=== PATIENT | female | born 1970 | race Caucasian/White ===

== ENCOUNTER 2024-07-28 16:23 | Outpatient (REF) | payer MEDICAID, SELFPAY ==
[2024-07-28 17:27] LABS: MANUAL DIFF FLAG NO
[2024-07-28 17:29] LABS: Basophils Absolute Auto 0.1 X10*3/uL (0.0-0.2); Basophils Percent Auto 0.5 % (0-2); Eosinophils Absolute Auto 0.1 X10*3/uL (0.0-0.4); Eosinophils Percent Auto 1.1 % (0-4); Hematocrit 49.8 % (37.0-47.0); Hemoglobin 16.3 g/dl (12.0-16.0); Imm Gran Abs Auto 0.03 X10*3/uL (0.00-0.03); Imm Gran Pct Auto 0.3 % (0.0-0.4); Lymphocytes Absolute Auto 2.9 X10*3/uL (1.2-4.9); Lymphocytes Percent Auto 27.8 % (20-40); Mean Corpuscular HGB Conc 32.7 g/dl (31.0-35.0); Mean Corpuscular Hemoglobin 28.5 pg (27.0-33.0); Mean Corpuscular Volume 87.2 fL (80.0-98.0); Mean Platelet Volume 11.2 fL (9.4-12.3); Monocytes Absolute Auto 0.8 X10*3/uL (0.1-1.2); Monocytes Percent Auto 7.5 % (2-11); Neutrophils Absolute Auto 6.6 x10*3/uL (2.0-8.3); Neutrophils Percent Auto 62.8 % (45-73); Platelet Count 426 X10*3/uL (160-400); Red Blood Count 5.71 X10*6/uL (4.20-5.50); White Blood Count 10.4 X10*3/uL (4.8-10.8)
[2024-07-28 17:42] LABS: Estimated Average Glucose 108 mg/dL; Hemoglobin A1C 144.2101 umol/L; Hemoglobin A1c % 5.4 % (<6.0); Total Hemoglobin (HGBA1C) 4120.6241 umol/L
[2024-07-28 18:09] LABS: Alanine Aminotransferase 32 U/L (0-31); Albumin Level 4.6 g/dL (3.5-5.0); Alkaline Phosphatase 83 U/L (39-117); Anion Gap 12 (12-20); Aspartate Amino Transferase 24 U/L (5-31); Bilirubin Total 0.3 mg/dL (0.0-1.0); Blood Urea Nitrogen 11 mg/dL (9-16); Calcium 10.2 mg/dL (8.4-10.2); Carbon Dioxide 25 mmol/L (22-29); Chloride 106 mmol/L (96-108); Cholesterol 188 mg/dL (<200); Estimated Glomerular Filt Rate > 60; Glucose Random 85 mg/dL (60-115); HDL Cholesterol 56 mg/dL (>40); LDL Cholesterol Calculated 112 mg/dL (<100); Sodium 139 mmol/L (135-145); Total Protein 8.2 g/dL (6.5-8.0); Triglycerides 100 mg/dL (<150)
[2024-07-28 18:22] LABS: TSH reflex Free T4 2.34 uIU/mL (0.32-4.0)
[2024-07-28 18:36] LABS: Folate 12.6 ng/mL (> or = 4.0); Vitamin B12 324 pg/mL (200-900)
[2024-07-29 12:04] LABS: Follicle Stimulating Hormone 11.7 mIU/mL; Lutenizing Hormone 6.8 mIU/mL
[2024-07-30 04:07] LABS: HIV AB/AG Nonreactive (Nonreactive); HIV Num 1 0.06 S/CO (0.00-0.99); ~HepC Num1 13.87 S/CO (0.00-0.79); ~Hepatitis C Antibody Reactive (Nonreactive)
[2024-08-01 12:13] LABS: HCV Log PCR <1.18 NOT DETECTED Log IU/mL (NOT DETECTED); HepC Viral Load <15 NOT DETECTED IU/mL (NOT DETECTED)
== END 2024-07-28 16:24 | disposition home or self-care (01) ==
LOC: HO.HHCL 16:23
PROVIDERS: Visit Provider Nurse Practitioner Family
DX: Z00.00 Encounter for general adult medical examination without abnormal findings (principal); Z68.39 Body mass index [BMI] 39.0-39.9, adult; N95.1 Menopausal and female climacteric states; E66.812 Obesity, class 2
CPT/HCPCS: 36415; 80053; 80061; 82607; 82746; 83001; 83002; 83036; 84443; 85025; 86803; 87389; 87522

== ENCOUNTER 2024-08-03 11:41 | Outpatient (REF) | payer MEDICAID, SELFPAY | END 2024-08-03 11:42 | disposition home or self-care (01) | LOC: HO.XRAY 11:41 | PROVIDERS: PCP Nurse Practitioner Family; Visit Provider Nurse Practitioner Family | DX: M79.641 Pain in right hand (principal); M79.642 Pain in left hand | CPT/HCPCS: 73130 ==

== ENCOUNTER 2024-09-13 11:30 | Outpatient (REF) | payer MEDICAID, SELFPAY ==
--- NOTE | ~2024-09-13 | MM_ITS ---
EXAMINATION: MM SCREENING DIGITAL BREAST TOMOSYNTHESIS, BILATERAL CLINICAL INFORMATION: Screening. Asymptomatic. COMPARISON: Mammography: Comparison is made with available priors TECHNIQUE: Digital breast mammography with tomosynthesis is performed in both the craniocaudal and mediolateral oblique views along with computer-aided detection (CAD). FINDINGS: There are scattered areas of fibroglandular density (ACR BI-RADS breast composition Category b). There are no significant masses, abnormal calcifications, or other abnormalities. MM/MM tomosynthesis screening BI IMPRESSION: No mammographic evidence of malignancy. ASSESSMENT: BI-RADS BI-RADS 1 - Negative RECOMMENDATION: Routine annual mammography screening. 1 year F/U This examination should not preclude the clinical evaluation of a suspicious palpable abnormality. This patient's information was entered into a reminder system with a target due date for their next mammogram. Electronically signed by: Deb Fitzgerald DO 09/19/2024 03:07 PM NINA
== END 2024-09-13 11:31 | disposition home or self-care (01) ==
LOC: HO.MAMMO 11:30
PROVIDERS: PCP Nurse Practitioner Family; Visit Provider Nurse Practitioner Family
DX: Z12.31 Encounter for screening mammogram for malignant neoplasm of breast (principal)
CPT/HCPCS: 77063; 77067

== ENCOUNTER → 2024-09-13 11:30 | Outpatient (BNV) | payer MEDICAID, SELFPAY | PROVIDERS: PCP Nurse Practitioner Family; Visit Provider Internal Medicine | DX: Z12.31 Encounter for screening mammogram for malignant neoplasm of breast (principal) | CPT/HCPCS: 77063; 77067 ==

== ENCOUNTER 2024-10-02 12:39 | Outpatient (REF) | payer MEDICAID, SELFPAY ==
[2024-10-02 13:45] LABS: MANUAL DIFF FLAG NO
[2024-10-02 14:06] LABS: Basophils Percent Auto 0.4 % (0-2); Eosinophils Absolute Auto 0.1 X10*3/uL (0.0-0.4); Eosinophils Percent Auto 0.9 % (0-4); Hematocrit 48.7 % (37.0-47.0); Hemoglobin 16.2 g/dl (12.0-16.0); Imm Gran Abs Auto 0.03 X10*3/uL (0.00-0.03); Imm Gran Pct Auto 0.3 % (0.0-0.4); Lymphocytes Absolute Auto 2.9 X10*3/uL (1.2-4.9); Lymphocytes Percent Auto 27.8 % (20-40); Mean Corpuscular HGB Conc 33.3 g/dl (31.0-35.0); Mean Corpuscular Hemoglobin 28.7 pg (27.0-33.0); Mean Corpuscular Volume 86.3 fL (80.0-98.0); Mean Platelet Volume 11.3 fL (9.4-12.3); Monocytes Absolute Auto 0.7 X10*3/uL (0.1-1.2); Monocytes Percent Auto 6.9 % (2-11); Neutrophils Absolute Auto 6.6 x10*3/uL (2.0-8.3); Neutrophils Percent Auto 63.7 % (45-73); Platelet Count 435 X10*3/uL (160-400); Red Blood Count 5.64 X10*6/uL (4.20-5.50); Red Cell Distribution Width 14.6 % (11.0-16.0); White Blood Count 10.4 X10*3/uL (4.8-10.8)
[2024-10-02 14:31] LABS: Iron 108 mcg/dL (30-160); Percent Iron Saturation 34 % (15-50); Total Iron Binding Capacity 318 mcg/dL (228-428); Unsaturated Iron Binding 210 ug/dL
[2024-10-03 10:34] LABS: HPV 16,18/45 See PAP report
[2024-10-05 16:37] LABS: C. trachomatis RNA TMA NOT DETECTED (NOT DETECTED); N. gonorrhoeae RNA TMA NOT DETECTED (NOT DETECTED); Trichomonas (NAAT) NOT DETECTED (NOT DETECTED)
== END 2024-10-02 12:40 | disposition home or self-care (01) ==
LOC: HO.HHCL 12:39
PROVIDERS: Visit Provider Nurse Practitioner Family
DX: Z12.4 Encounter for screening for malignant neoplasm of cervix (principal); D75.1 Secondary polycythemia
CPT/HCPCS: 36415; 83540; 85025; 87491; 87591; 87624; 87661; 88175

== ENCOUNTER 2024-10-10 15:47 | Outpatient (REF) | payer MEDICAID, SELFPAY | END 2024-10-10 15:48 | disposition home or self-care (01) | LOC: HO.US 15:47 | PROVIDERS: PCP Nurse Practitioner Family; Visit Provider Family Medicine | DX: Z30.432 Encounter for removal of intrauterine contraceptive device (principal) | CPT/HCPCS: 76830; 76856 ==

== ENCOUNTER → 2024-10-10 15:49 | Outpatient (BNV) | payer MEDICAID, SELFPAY | PROVIDERS: PCP Nurse Practitioner Family; Visit Provider Radiology Diagnostic Radiology | DX: T83.32XA Displacement of intrauterine contraceptive device, initial encounter (principal) | CPT/HCPCS: 76830; 76856 ==

== ENCOUNTER 2025-02-15 15:01 | Outpatient (AMB) | payer MEDICAID, SELFPAY ==
--- NOTE | 2025-02-15 15:12 | MHC.OFFVIS ---
Vital Signs 02/15/25 15:23 Height 5 ft 4 in Intake Visit Reasons: IUD removal Criminal Research Specialist Required: No Information Interpreted: non-clinical & clinical Photoengraving Etcher Apprentice: Photoengraving Etcher Apprentice Present (Humaira HURT) Accompanied by: Self / Same As Patient Allergies No Known Allergies Allergy (Unverified 02/15/25 15:24) Is last menstrual period known: No (mirena) HPI Comments Details: Presenting referred from PCP regarding IUD removal Pelvic ultrasound 10/03 showed the following: IMPRESSION: Intrauterine contraceptive device is malpositioned in oblique position within endometrial cavity Likely small posterior fibroid in the body of uterus. Nabothian cyst with calcifications in cervix. Ovaries are unremarkable. Last co testing in 10/03 was negative Last mammogram in 10/03 to was BI-RADS 1 PFS Medical History (Updated 02/15/25 @ 15:41 by Rupert Beatty MD) ASCUS of cervix with negative high risk HPV Surgical History Hx of gastric bypass Family History (Updated 02/15/25 @ 15:27 by Humaira Cazares CMA) Mother Diabetes HTN (hypertension) Father Heart disease Social History Household Members: Spouse Housing: Apartment Alcohol intake: current Alcohol intake frequency: holidays/special occasions only Patient Tobacco Use Status: Current everyday Tobacco user Tobacco use type: Cigarette Cigarettes Per Day: 4 Years Smoked: 15 Female Reproductive History Menstrual Total pregnancies: 2 Full term: 2 Number of Living Children: 2 Review of Systems Const All systems reviewed & are unremarkable except as noted in HPI and below Physical Exam General: Yes no CVA tenderness External Female Exam: normal external appearance and normal appearance of the urethra Speculum Exam - Vagina: normal appearance of the vagina, normal palpation, no lesions and no masses Speculum Exam - Cervix: normal appearance of the cervix, normal palpation, no lesions, no masses, nontender and Other cervical findings present (IUD string seen) Bimanual exam- vagina & uterus: normal bimanual exam, normal palpation, uterine size normal, normal palpation, uterine shape normal, No Cervical tenderness present and non-tender Bimanual Exam- Adnexa, other: normal adnexae Back/Spine/Pelvis Back: no CVA tenderness Office Procedures IUD Insert/Removal Details Details: Counseling/Consent: After discussing with the patient the risks of the procedure including bleeding, infection, scar tissue formation, , possible injury to blood vessels or nerves, chronic arm pain, blood transfusion, and irregular unpredictable bleeding Alternative options were discussed with the patient including but not limited: Do nothing. The patient signed the consent and agreed with the plan; all questions answered. Urine test was done in the office and was negative Preop dx: Polyp malpositioned IUD by ultra for removal Op: IUD removal Post op dx: same EBL= 10 cc Procedure: The patient was put in the dorsal lithotomy position a speculum was inserted in the vagina the IUD thread identified. Using a Ann-Marie clamp the thread was grasped and the IUD pulled out with no complications. The patient tolerated the procedure well and was advised to use a condoms as a backup method for contraception. Discharge instructions: Instructions were given to the pt to call if temp>100.4, abdominal pain heavy vaginal bleeding, n/v occur. The patient verbalized understanding and all questions answered. This note was generated with a voice recognition program. Some errors may have been overlooked during the review of this note. Sometimes these errors may affect the content or meaning of a given sentence. [id number]-[id number] Removal Procedure code (CPT) selection complete Results AMB Test Urine AMB Test Urine Negative Last Edit by Humaira Cazares CMA on 02/15/25 15:39 Assessment & Plan Assessment & Plan (1) Malpositioned IUD: Code(s): T83.32XA - Displacement of intrauterine contraceptive device, initial encounter Category: Medical Plan: Discussed with the patient the finding on ultrasound showing malpositioned IUD, recommended IUD removal. IUD removed, see procedure note FSH/LH ordered to be done in 1 week. Instructions given to patient to use backup method for control meanwhile and to call in case of vaginal bleeding occurs will proceed with endometrial biopsy to rule out endometrial pathology including endometrial hyperplasia and/or malignancy (2) Uterine myoma: Code(s): D25.9 - Leiomyoma of uterus, unspecified Category: Medical Plan: Discussed with the patient the findings on pelvic ultrasound & the risk of myosarcoma; in addition reviewed with the patient that malignancy and pre malignancy cannot be ruled out without hysterectomy for pathological evaluation ; furthermore, explained to the patient the limitation of pelvic ultrasound and endometrial biopsy in the setting. Discussed with the patient the options of treatment including expectant management versus hysterectomy; the pros and cons, risks benefits of each approach were discussed with the patient including the fact that in cases of myosarcoma, surgical treatment can lead to early diagnosis and positively affects the prognosis; after further discussion, the patient decided to proceed with expectant management. Will repeat pelvic ultrasound periodically. Instructions given to patient to call in case any of the following occurs: pressure symptoms, abnormal uterine bleeding, pelvic pain; and to schedule a six-months pelvic ultrasound from previous ultrasound (order placed) and a follow-up appointment . All questions answered, the patient verbalized understanding and agreed with the plan . Orders: Orders US pelvic and transvaginal 2 Months D25.9 - Leiomyoma of uterus, unspecified Follicle Stimulating Hormone Today N91.2 - Amenorrhea, unspecified AMB HCG Urine Test Today Z32.02 - Encounter for test, result negative Lutenizing Hormone Today N91.2 - Amenorrhea, unspecified Coding Level of Care Code New Pt Level 3 (78274) Procedure Only Diagnoses Malpositioned IUD T83.32XA Uterine myoma D25.9 CPT Codes Details - CPT: 74367-VMI Removal ([id number])
--- OUTSIDE RECORDS SUMMARY | 2025-02-15 15:33 | XMS_ITS | Encounter Summary ---
Author Organization [facility] Address [address] [place] [address] [address] [place] [address] Care Team Providers Care Business Enterprise Officer Name Role Phone Tonia Mary BRENDAN Primary Care Provider [phone] Reason for Visit * Reason Onset Date Comments New Patient 10/19/2023 Encounter Details Date Type Department Care Team (Late st Contact Info) Description 10/19/2023 Telephone [facility] MEDICINE [address] [place] [address] Arun Lemus MD [address] [place] [address] New Patient Social History Tobacco Use Types Packs/Day Years Used Date Smoking Tobacco: Never Assessed Comments Unknown Sex and Gender Information Value Date Recorded Sex Assigned at Female 08/10/2022 10:16 AM EDT Legal Sex Female 10:16 AM EDT Gender Identity Female 07/28/2024 2:48 PM EDT Sexual Orientation Straight 08/10/2022 10 :16 AM EDT documented as of this encounter Miscellaneous Notes * Telephone Encounter - Rosaura Swartz - 10/19/2023 5:17 PM EST PT is on [facility] List as of 10/15/2023 documented in this encounter Plan of Treatment Upcoming Encounters Date Type Department Care Team (Late st Contact Info) Description 03/02/2025 1:00 PM EDT Office Visit [facility] OPTOMETRY [address] [place], [place] [id number] Marta Porter, OD [address] [place] [address] 03/12/2025 4:00 PM EDT Office Visit [facility] MEDICINE [address] [place], [place] [phone] Tonia Mary NP [address] [place] [address] documented as of this encounter Visit Diagnoses Not on filedocumented in this encounter Care Teams Business Enterprise Officer Relationship Specialty Start Date End Date Tonia Mary NP [address] [place] [address] PCP - General Family Medicine 07/28/24 documented as of this encounter
--- OUTSIDE RECORDS SUMMARY | 2025-02-15 15:33 | XMS_ITS | Clinical Summary ---
Author Organization [employer] Address [address] [place] [address] 7[address] [place] [address] Care Team Providers Care Line Builder Name Role Phone Tonia Mary BRENDAN Primary Care Provider [phone] Allergies No known active allergies Medications Diclofenac Sodium (Voltaren) 1 % gelIndications: Hand arthritis Apply 1 Application topically if needed in the morning, at noon, in the evening, and at bedtime (pain). 40 g 1 Active Active Problems Problem Noted Date Diagnosed Date Malpositioned intrauterine device 12/17/2024 Assessment & Plan (12/17/2024 8:30 PM EDT): Referral to HEALTH MANAGEMENT CONSULTANT, pt to update if has not head to schedule Viral upper respiratory tract infection 12/18/19 Assessment & Plan (12/17/2024 8:30 PM EDT): Neg covid flu Supportive measures, pt is improving Health maintenance alteration 12/17/2024 Positive colorectal cancer screening using Colog uard test 11/20/2024 Assessment & Plan (12/17/2024 8:30 PM EDT): Referral to GI Encounter for IUD removal 10/02/2024 Assessment & Plan (10/02/2024 5:44 PM EST): Pt is interested in removal and replacement, pt is amneorrheic but has been throughout duration of iud Last fsh wnl, pt cannot recall date but believes iud is overdue for removal Procedure delayed due to both inability to visualize strings and incomplete hx. Close follow up Polycythemia 10/02/2024 Assessment & Plan (10/02/2024 5:39 PM EST): Mild elevation, repeat labs today, iron studies added on History of hepatitis C virus infection Assessment & Plan (10/02/2024 2:22 PM EST): 2023, undetectable viral load History of abnormal uterine bleeding 10/02/2024 Hand arthritis 10/02/2024 Assessment & Plan (10/02/2024 5:46 PM EST): Topical therapies and prn acetaminophen prescribed Pt declines otho referral at this time Cervical cancer screening 10/01/2024 Assessment & Plan (10/02/2024 5:41 PM EST): Pap + hpv and sti screening completed today, Iud strings not visualized despite utilizing endocervical brush. Hx of AUB, ultrasound ordered to both assess iud placement and follow up on previous aub findings, pt has also signed release for hx records Dietary counseling 08/10/2024 Assessment & Plan (08/10/2024 3:20 PM EDT): Encouraged minimizing processed foods and increasing whole foods particularly vegetables Exercise counseling 08/10/2024 Assessment & Plan (08/10/2024 3:20 PM EDT): Encouraged daily movement Class 2 obesity with body ma ss index (BMI) of 39.0 to 39.9 in adult 08/10/2024 Assessment & Plan (10/02/2024 5:45 PM EST): Plan to consider glp-1 if covered by insurance Assessment & Plan (08/10/2024 3:17 PM EDT): Metabolic labs as ordered below Anticipatory guidance reviewed Encounter for screening for malignant neoplasm o f colon 08/10/2024 Assessment & Plan (08/10/2024 3:20 PM EDT): Cologuard ordered Encounter for screening mamm ogram for malignant neoplasm of breast 08/10/2024 Perimenopause 08/10/2024 Assessment & Plan (08/10/2024 3:20 PM EDT): Labs as ordered below Bilateral hand pain 08/10/2024 Assessment & Plan (08/10/2024 3:19 PM EDT): Suspect oa, X-rays ordered Encounter for immunization 08/10/2024 Healthcare maintenance 08/10/2024 Assessment & Plan (08/10/2024 3:20 PM EDT): Mammogram ordered, pt will return for pap Metabolic labs ordered Anticipatory guidance reviewed Tobacco dependence 08/10/2024 Assessment & Plan (08/10/2024 3:21 PM EDT): Pt declines assistance today Elevated fasting glucose 11/11/2015 Gastroesophageal reflux disease 11/11/2015 Recurrent major depression 11/11/2015 Resolved Problems Problem Noted Date Diagnosed Date Resolved Date Chronic hepatitis C 11/11/2015 10/02/20 24 Encounters Date Type Department Care Team Description 12/22/2024 Orders Only [facility] [address] [place] [phone] Tonia Mary NP Malpositioned intrauterine device (IUD), subsequent encounter (Primary Dx) 12/22/2024 Telephone [facility] [address] [place] [phone] Tonia Mary NP Call Back Request 12/22/2024 Population Health Risk Score [facility] Department [address] [phone] Provider, Population Health Generic 11/20/2024 4:00 PM EST Office Visit [facility]INE [address] [place] [phone] Tonia Mary NP Viral upper respiratory tract infection (Primary Dx); Malpositioned intrauterine device (IUD), subsequent encounter; Positive colorectal cancer screening using Cologuard test; Health maintenance alteration 11/20/2024 Travel 11/19/2024 Travel from Last 3 Months Immunizations Name Administration Dates Next Due Hep A, Adult 08/13/2004,02/05/2004 Hep B, adult 08/14/2004,03/25/2004,02/05/2004 Influenza injectable quadriv alent preservative free 08/01/2019 Influenza, Split (incl. cinthia fied surface antigen) 08/05/2012 Influenza, seasonal, injecta ble, preservative free 07/28/2024 Pneumococcal Polysaccharide PPSV23 08/05/2012 Tdap 07/28/2024,08/05/2012 Family History Medical History Relation Name Comments Diabetes type II Mother Heart disease Mother Relation Name Status Comments Mother Social History Tobacco Use Types Packs/Day Years Used Date Smoking Tobacco: Every Day Cigarettes Passive Smoke Exposure: Current Smokeless Tobacco: Never Tobacco Cessation:Ready to Q uit: Not Asked; Counseling Given: Not Answered Alcohol Answer Date Recorded How often do you have a drink containing alcohol ? 1 07/28/2024 How many drinks containing a lcohol do you have on a typical day when you are drinking? 1 07/28/2024 How often do you have six or more drinks on one occasion? 0 07/28/2024 Depression Answer Date Recorded Patient Health Questionnaire-9 Score 15 07/28/2024 Patient Health Questionnaire-9 Score 15 07/28/2024 Last PHQ-9: Questionnaire Data Not on file 1 Housing Stability Answer Date Recorded What is your housing situation today? I have margie moe 07/19/[address] you li ve. Do you have problems with any of the following? None of the above 07/19/2024 Food Insecurity Answer Date Recorded Within the past 12 months, y ou worried that your food would run out before you got money to buy more: Never True 07/19/2024 Within the past 12 months,th e food you bought just didn't last and you didn't have enough money to get more: Never True 06/2024 Transportation Answer Date Recorded In the past 12 months, has l ack of transportation kept you from medical appts, meetings, work or from getting things needed for daily living? No 07/19/2024 Utilities Answer Date Recorded In the past 12 months, has t he electric, gas, oil or water company threatened to shut off services in your home? No 07/19/2024 Depression Answer Date Recorded Patient Health Questionnaire-2 Score 3 07/28/2024 Internet Access Answer Date Recorded Internet Access Q1 Yes 07/19/2024 Internet Access Q2 Not on file 07/19/2024 Comments Unknown Sex and Gender Information Value Date Recorded Sex Assigned at Female 08/10/2022 10:16 AM EDT Legal Sex Female 10:16 AM EDT Gender Identity Female 07/28/2024 2:48 PM EDT Sexual Orientation Straight 08/10/2022 10 :16 AM EDT Last Filed Vital Signs Vital Sign Reading Time Taken Comments Blood Pressure 143/95 11/20/2024 4:08 PM EST Pulse 94 11/20/2024 4:08 PM EST Temperature 35.2 ??C (95.3 ??F) 11/20/2024 4:08 PM ES T Respiratory Rate 18 11/20/2024 4:08 PM EST Oxygen Saturation 98% 11/20/2024 4:08 PM EST Inhaled Oxygen Concentration - - Weight 109 kg (239 lb 3.2 oz) 11/20/2024 4:08 PM EST Height 162.6 cm (5' 4 ) 11/20/2024 4:08 PM EST Body Mass Index 41.06 11/20/2024 4:08 PM EST Plan of Treatment Upcoming Encounters Date Type Department Care Team (Late st Contact Info) Description 03/02/2025 1:00 PM EDT Office Visit [facility] OPTOMETRY [address] [place] [address] TarkaMarta, OD [address] [place] [address] 03/12/2025 4:00 PM EDT Office Visit [facility] MEDICINE [address] [place] [address] Tonia Mary, LIQUID LOADER [address] [place] [address] Health Maintenance Due Date Last Done Comments CT Colonography 1970 Colonoscopy 1970 FIT 1970 FOBT 1970 Sigmoidoscopy 1970 Family Planning (PISQ) 12/10/1987 Pneumococcal Vaccine: 50+ Years (2 of 2 - PCV) 08/05/2013 08/05/2012 Zoster Vaccines (1 of 2) 2022 COVID-19 Vaccine (3 - 2023-2 5 season) 2024 01/30/2021, 01/02/2021 SDOH Screening 07/19/2025 07/19/2024 Alcohol/Substance Use Screening 07/28/2025 07/28/2024 Depression Screening 07/28/2025 07/28/2024, 07/28/2024 Tobacco Screening 11/20/2025 11/20/2024 Mammogram 09/13/2026 09/13/2024, 08/25/2019 Colorectal Cancer Screening 08/22/2027 FIT DNA/Cologuard 08/22/2027 08/22/2024 Lipid Panel 07/28/2029 07/28/2024 Cervical Cancer Screening 10/02/2029 HPV/Cotest 10/02/2029 10/02/2024, 05/26/2017 Pap Smear 10/02/2029 10/02/2024 DTaP/Tdap/Td Vaccines (3 - T d or Tdap) 07/28/2034 07/28/2024, 08/05/2012 RSV Patients and Patients Aged 60 years or older (1 - 1-dose 75+ series) 12/10/2047 Hepatitis A Vaccines Completed 08/13/2004, 02/05/2004 Hepatitis B Vaccines Completed 08/14/2004, 03/25/2004, 02/05/2004 HIV Screening Completed 07/28/2024 Influenza Vaccine Completed 07/28/2024, 08/01/2019, 08/05/2012 HIB Vaccines Aged Out No longer eligi ble based on patient's age to complete this topic HPV Vaccines Aged Out No longer eligi ble based on patient's age to complete this topic IPV Vaccines Aged Out No longer eligi ble based on patient's age to complete this topic Meningococcal Vaccine Aged Out No oscar ella eligible based on patient's age to complete this topic RSV under 20 months Aged Out No longe r eligible based on patient's age to complete this topic Rotavirus Vaccines Aged Out No longer eligible based on patient's age to complete this topic Procedures Procedure Name Priority Date/Time Associated Diagnosis Comments POCT INFLUENZA A Routine 11/20/2024 4:33 PM EST Viral upper respiratory tract infection POCT INFLUENZA B Routine 11/20/2024 4:32 PM EST Viral upper respiratory tract infection HPV DNA, LOW/HIGH RISK Routine 12:39 PM EST Cervical cancer screening PAP SMEAR Routine 10/02/2024 10:30 AM EST Cervical cancer screening BI MAMMOGRAM SCREENING TOMOSYNTHESIS BILATERAL Routine 09/13/2024 11:33 AM EST Encounter for screening mammogram for malignant neoplasm of breast LAB COLOGUARD?? COLON CANCER SCREEN Routine 08/22/2024 6:00 PM EST Encounter for screening for malignant neoplasm of colon HIV 1/2 ANTIGEN/ANTIBODY, FOURTH GENERATION W/RFL Routine 07/28/2024 4:35 PM EDT Healthcare maintenance LIPID PANEL, STANDARD Routine 07/28/2024 4:35 PM EDT Class 2 obesity with body mass index (BMI) of 39.0 to 39.9 in adult, unspecified obesity type, unspecified whether serious comorbidity present from Last 3 Months or Most Recently Relevant to Health Maintenance Results * POCT Rapid Influenza A OSOM (11/20/2024 4:33 PM EST) Rapid Influenza A Ag Negative Negative, Indeterminate QC Media Lot # [id number] Lot# Expiration Date Swab Nasopharyngeal structure / Unknown 11/20/2024 4:33 PM EST Tonia Mary LIQUID LOADER POINT OF CARE TEST ENTER/EDIT OR DERABLES Final Result * POCT Rapid Influenza B OSOM (11/20/2024 4:32 PM EST) Rapid Influenza B Ag Negative Negative, Indeterminate QC Media Lot # [id number] Lot# Expiration Date Swab 11/20/2024 4:32 PM EST us Tonia Graef LIQUID LOADER POINT OF CARE TEST ENTER/EDIT OR DERABLES Final Result * HPV High Risk with Reflex to Subtypes (10/02/2024 12:39 PM EST) Pap Vial 10/02/2024 12:3 9 PM EST us Tonia Mary NP LAB BLOOD ORDERABLES Final Resul t [facility] [address] [place] [phone] * Pap Smear (10/02/2024 10:30 AM EST) Swab 10/02/2024 10:3 0 AM EST 10/03/2024 10:10 AM EST Narrative [facility] - 10/09/2024 10:30 AM EST ----- ------- Name: BillyMarla ? Age/Sex: 53/F ? : 1970 Unit#: [id number] ?? Attend Dr: Tonia Mary LIQUID LOADER ?Re10/02/24 ?Status: DEP REF ? [facility] ? Disch: ? ----- ------- SPEC : [id number] ?RECD: 10/03/24 ? STATUS: ??SOUT ? REQ NUM: [id number] ? AISHA: 10/02/24 ? SUBM DR: Tonia Mary LIQUID LOADER ? ENTERED: ??10/03/24 ?SP TYPE: Pap Smr ?OTHR : ? ORDERED: ??Pap Smear ? Interpretation ?? Satisfactory for evaluation. ?? Negative for intraepithelial lesion or malignancy. ?? Scant cellularity. ? HPV High Risk: ??Negative ? HPV Genotyping 16: ??Negative ?? HPV Genotyping 18: ??Negative ?Clinical Information LMP: Mirena, and no bleeding for years Previous PAP test: Unknown date, WNL Other surgery: IUD Other history: Uncertain if menopausal ? Material Received ?? ThinPrep-Cervical ----- ------- Signed (signature on file) DEREK Vargas ([facility]) 10/09/24 1030 ? ----- ------- ? END OF REPORT ? us Tonia Mary LIQUID LOADER LAB CYTOLOGY ORDERABLES Final Re [facility] [address] [place] [address] [phone] * BI Mammogram Screening Tomosynthesis Bilateral (09/13/2024 11:33 AM EST) Anatomical Region Laterality Modality Breast Bilateral Mammography 09/13/2024 11:3 3 AM EST Narrative 09/19/2024 3:10 PM EST ? [facility] ? [address] [facility] ?[place] [address] ? Mammography Report ? Signed ? Patient: Cervantes,Marla ?MR#: [id number] ? : 1970 ?Acct:[id number] ? Age/Sex: 53 / F ?ADM Date: 12/04/24 ? Loc: HO.MAMMO ? Attending Dr: Tonia Mary LIQUID LOADER ? Ordering Physician: Tonia Mary LIQUID LOADER ?Results: 1Negati ?? ve ? Date of Service: 09/13/24 ?Follow Up: 1 Year From Orig ?? inal Mammogram ? Procedure(s): MM tomosynthesis screening BI ?? Accession Number(s): [id number] ? cc: TyraTonia Sheldon LIQUID LOADER ? EXAMINATION: ?? MM SCREENING DIGITAL BREAST TOMOSYNTHESIS, BILATERAL ? CLINICAL INFORMATION: ? Screening. Asymptomatic. ? COMPARISON: ?? Mammography: Comparison is made with available priors ? TECHNIQUE: ?? Digital breast mammography with tomosynthesis is performed in both the ?? craniocaudal and mediolateral oblique views along with computer-aided ?? detection (CAD). ? FINDINGS: ?? There are scattered areas of fibroglandular density (ACR BI-RADS breast ?? composition Category b). ? There are no significant masses, abnormal calcifications, or other ?? abnormalities. ? MM/MM tomosynthesis screening BI ?? IMPRESSION: ?? No mammographic evidence of malignancy. ? ASSESSMENT: ? BI-RADS BI-RADS 1 - Negative ? RECOMMENDATION: ?? Routine annual mammography screening. ? 1 year F/U ? This examination should not preclude the clinical evaluation of a ?? suspicious palpable abnormality. ? This patient's information was entered into a reminder system with a ?? target due date for their next mammogram. ? Electronically signed by: ??Deb Fitzgerald DO ??09/19/2024 03:07 PM EST ?? RP ? Dictated By: ?Deb Fitzgerald DO ? Signed By: ?<Electronically signed by Deb Fitzgerald, DO in OV> ? 09/19/24 1507 ? DD/ 1133 ? TD/TT: 09/13/24 1150 ? Forest Patrolman: ? Procedure Note Donotuseinterpreter, Image - 09/19/2024 [place] [facility] [address] [place] [address] Mammography Report Signed Patient: Marla CervantesMR#: [id number] : 1970Acct:[id number] Age/Sex: 53 / FADM Date: 09/13/24 Loc: HO.MAMMO Attending Dr: Tonia Mary LIQUID LOADER Ordering Physician: Tonia Mary NPResults: 1Negati ve Date of Service: 09/13/24Follow Up: 1 Year From Orig inal Mammogram Procedure(s): MM tomosynthesis screening BI Accession Number(s): [id number] cc: Tonia Mary LIQUID LOADER EXAMINATION: MM SCREENING DIGITAL BREAST TOMOSYNTHESIS, BILATERAL CLINICAL INFORMATION: Screening. Asymptomatic. COMPARISON: Mammography: Comparison is made with available priors TECHNIQUE: Digital breast mammography with tomosynthesis is performed in both the craniocaudal and mediolateral oblique views along with computer-aided detection (CAD). FINDINGS: There are scattered areas of fibroglandular density (ACR BI-RADS breast composition Category b). There are no significant masses, abnormal calcifications, or other abnormalities. MM/MM tomosynthesis screening BI IMPRESSION: No mammographic evidence of malignancy. ASSESSMENT: BI-RADS BI-RADS 1 - Negative RECOMMENDATION: Routine annual mammography screening. 1 year F/U This examination should not preclude the clinical evaluation of a suspicious palpable abnormality. This patient's information was entered into a reminder system with a target due date for their next mammogram. Electronically signed by: Deb Fitzgerald DO 09/19/2024 03:07 PM [facility] Dictated By: Deb Fitzgerald DO Signed By: <Electronically signed by Deb Fitzgerald DO in OV> 09/19/24 1507 DD/ 1133 TD/TT: 09/13/24 1150 Forest Patrolman: us Tonia Mary LIQUID LOADER IMG BI PROCEDURES Final Result * (ABNORMAL) Cologuard?? colon cancer screening (08/22/2024 6:00 PM EST) Cologuard Result Positive( A) Negative 08/29/2024 5:47 PM EST [facility] (CLIA #:[id number]) Comment: POSITIVE TEST RESULT. A positive Cologuard result should be followed with a colonoscopy or visual examination of the colon. The normal value (reference range) for this assay is negative. TEST DESCRIPTION: Composite algorithmic analysis of stool DNA-biomarkers with hemoglobin immunoassay. ?? Quantitative values of individual biomarkers are not reportable and are not associated with individual biomarker result reference ranges. Cologuard is intended for colorectal cancer screening of adults of either sex, 45 years or older, who are at average-risk for colorectal cancer (CRC). Cologuard has been approved for use by the U.S. FDA. The performance of Cologuard was established in a cross sectional study of average-risk adults aged 50-84. Cologuard performance in patients ages 45 to 49 years was estimated by sub-group analysis of near-age groups. Colonoscopies performed for a positive result may find as the most clinically significant lesion: colorectal cancer [4.0%], advanced adenoma (including sessile serrated polyps greater than or equal to 1cm diameter) [20%] or non- advanced adenoma [31%]; or no colorectal neoplasia [45%]. These estimates are derived from a prospective cross-sectional screening study of 10,000 individuals at average risk for colorectal cancer who were screened with both Cologuard and colonoscopy. (Kathy Ramsey al, N Engl J Med 2014;370(14):4339-3097.) Cologuard may produce a false negative or false positive result (no colorectal cancer or precancerous polyp present at colonoscopy follow up). A negative Cologuard test result does not guarantee the absence of CRC or advanced adenoma (pre-cancer). The current Cologuard screening interval is every 3 years. ([place] [employer] Society and U.S. Multi-Society Task Force). Cologuard performance data in a 10,000 patient pivotal study using colonoscopy as the reference method can be accessed at the following location: www.[email or web address]/results. Additional description of the Cologuard test process, warnings and precautions can be found at www.colPeriGenrd.com. Stool specimen (specimen) 08/22/2024 6:00 PM EST 08/24/2024 10:59 AM EST Tonia Mary NP LAB MOLECULAR DIAGNOSTICS ORDERA BLES Final Result Performing Organization Address City/[facility]/ZIP Co de Phone Number [facility] (CLIA #:[id number]) [place] [address], * HIV-1/2 Antigen and Antibodies, Fourth Generation, with Reflexes (07/28/2024 4:35 PM EDT) [facility] HIV AB/AG Nonreactive Nonreactive [facility] Comment:HIV-1 p24 Ag and/or HIV-1/HIV-2 Ab not detected.A test result that is nonreactive does not exclude thepossibility of exposure to or infection with HIV-1 and/orHIV-2. Nonreactive results in this assay for individualswith prior exposure to HIV-1 and/or HIV-2 may be due toantigen and antibody levels that are below the limit ofdetection of this assay.The [employer] HIV Ag/Ab Combo assay result andsupplemental assay results should be interpreted inconjunction with the patient's clinical presentation,history and other laboratory results. If the results areinconsistent with clinical evidence, additional testing issuggested to confirm the result. Blood Venous blood specimen / Unknown 07/28/2024 4:35 PM EDT 07/28/2024 5:24 PM EDT Tonia Mary NP LAB BLOOD ORDERABLES Final Resul t Performing Organization Address [facility]/ZIP Co de Phone Number [facility] [address] [place] [phone] * (ABNORMAL) Lipid Panel, Standard (07/28/2024 4:35 PM EDT) Triglycerides 100 <150 mg/dL [facility] Comment:Desirable Triglyceri de: less than 150 mg/dLBorderline High Triglyceride 150-199 mg/dLHigh Triglyceride: 200-499 mg/dLVery High Triglyceride: greater than or equal to 5OO mg/dL Cholesterol 188 <200 mg/dL [facility] Comment:Desirable Cholestero l: less than 200 mg/dLBorderline High Cholesterol: 200-239 mg/dLHigh Cholesterol: greater than 239 mg/dL LDL Cholesterol Calculated 112(H) <100 mg/dL [facility] Comment:Desirable LDL: less than 100 mg/dLNear Optimal/Above Optimal LDL: 110- 129 mg/dLBorderline High LDL: 130-159 mg/dLHigh LDL: 160-189 mg/dLVery High LDL: greater than or equal to 190 mg/dL HDL Cholesterol 56 >40 mg/dL [facility] Comment:Desirable HDL: great er than 40 mg/dL Note: This HDL assay may give artificially low results in patients with liver disease. Blood Venous blood specimen / Unknown 07/28/2024 4:35 PM EDT 07/28/2024 5:24 PM EDT us Tonia Mary NP LAB BLOOD ORDERABLES Final Resul t [facility] [address] [place] [address] [phone] from Last 3 Months or Most Recently Relevant to Health Maintenance Insurance [facility] C3 [employer]IAL Care Teams Line Builder Relationship Specialty Start Date End Date Tonia Mary NP [address] [place] [phone] PCP - General Family Medicine 07/28/24
== END 2025-02-15 15:52 | disposition home or self-care (01) ==
LOC: HO.HWS 15:01
PROVIDERS: PCP Nurse Practitioner Family; Visit Provider Obstetrics & Gynecology
DX: D25.9 Leiomyoma of uterus, unspecified (principal); T83.32XA Displacement of intrauterine contraceptive device, initial encounter; Z30.432 Encounter for removal of intrauterine contraceptive device; Z32.02 Encounter for pregnancy test, result negative
CPT/HCPCS: 58301; 99203

== ENCOUNTER → 2025-02-15 15:01 | Outpatient (BNVA) | payer MEDICAID, SELFPAY | PROVIDERS: PCP Nurse Practitioner Family; Visit Provider Obstetrics & Gynecology | DX: T83.32XA Displacement of intrauterine contraceptive device, initial encounter (principal); D25.9 Leiomyoma of uterus, unspecified; N91.2 Amenorrhea, unspecified; X58.XXXA Exposure to other specified factors, initial encounter; Z30.432 Encounter for removal of intrauterine contraceptive device | CPT/HCPCS: 58301; 81025; 99202 ==

== ENCOUNTER 2025-03-14 11:13 | Outpatient (REF) | payer MEDICAID, SELFPAY ==
[2025-03-14 12:09] LABS: MANUAL DIFF FLAG NO
[2025-03-14 13:05] LABS: Basophils Absolute Auto 0.1 X10*3/uL (0.0-0.2); Basophils Percent Auto 0.6 % (0-2); Eosinophils Absolute Auto 0.2 X10*3/uL (0.0-0.4); Eosinophils Percent Auto 2.2 % (0-4); Hematocrit 48.8 % (37.0-47.0); Hemoglobin 16.2 g/dl (12.0-16.0); Imm Gran Abs Auto 0.02 X10*3/uL (0.00-0.03); Imm Gran Pct Auto 0.2 % (0.0-0.4); Lymphocytes Absolute Auto 2.5 X10*3/uL (1.2-4.9); Lymphocytes Percent Auto 28.1 % (20-40); Mean Corpuscular HGB Conc 33.2 g/dl (31.0-35.0); Mean Corpuscular Hemoglobin 28.8 pg (27.0-33.0); Mean Corpuscular Volume 86.7 fL (80.0-98.0); Mean Platelet Volume 11.1 fL (9.4-12.3); Monocytes Absolute Auto 0.6 X10*3/uL (0.1-1.2); Monocytes Percent Auto 6.8 % (2-11); Neutrophils Absolute Auto 5.5 x10*3/uL (2.0-8.3); Neutrophils Percent Auto 62.1 % (45-73); Platelet Count 417 X10*3/uL (160-400); Red Blood Count 5.63 X10*6/uL (4.20-5.50); Red Cell Distribution Width 15.4 % (11.0-16.0); White Blood Count 8.8 X10*3/uL (4.8-10.8)
[2025-03-14 13:24] LABS: Iron 115 mcg/dL (30-160); Percent Iron Saturation 37 % (15-50); Total Iron Binding Capacity 314 mcg/dL (228-428); Unsaturated Iron Binding 199 ug/dL
[2025-03-15 06:33] LABS: Follicle Stimulating Hormone 20.6 mIU/mL; Lutenizing Hormone 13.2 mIU/mL
== END 2025-03-14 11:14 | disposition home or self-care (01) ==
LOC: HO.LAB 11:13
PROVIDERS: Absent Provider Obstetrics & Gynecology; PCP Nurse Practitioner Family; Visit Provider Nurse Practitioner Family
DX: N91.2 Amenorrhea, unspecified (principal); R19.5 Other fecal abnormalities
CPT/HCPCS: 36415; 83001; 83002; 83540; 85025; 99212

== ENCOUNTER 2025-03-14 11:13 | Outpatient (AMB) | payer MEDICAID, SELFPAY ==
[2025-03-14 11:15] VITALS: BP 138/76; PULSE 97; O2SAT 96; BMI 42.9
--- NOTE | 2025-03-14 11:15 | MHC.OFFVIS ---
Vital Signs 03/14/25 11:15 Height 5 ft 3 in Weight 242 lb 4 oz BMI 42.9 BP 138/76 Blood Pressure Location Lt brachial Position Sitting Pulse 97 Pulse Oximetry (%) 96 Oxygen Delivery Method Room Air Intake Visit Reasons: Positive colo guard Intake Note: Patient new consult for positive Cologuard. Patient denies any GI issues. Application Security Engineer Required: No Accompanied by: Self / Same As Patient Allergies No Known Allergies Allergy (Verified 03/14/25 11:14) Medication List - Last Reconciled 03/14/25 by Charleen Kamara CNP acetaminophen ER 650 mg PO Q8H PRN bisacodyl 5 mg PO ONCE 1 day diclofenac sodium 1% 1 ea topical TID PRN nicotine 3 patches transdermal Q24H nicotine 1 patch transdermal Q24H polyethylene glycol 3350 (Miralax) 238 grams PO ONCE HPI HPI Positive colo guard: Details: Patient is a 54-year-old female with PMH of obesity and nicotine dependence. She was referred by PCP for further evaluation of positive Cologuard collected 08/22/2024. She has not have a colonoscopy before. She reports daily bowel movements without difficulty. Occasionally, she notices a small amount of bright red blood when wiping, especially after consuming very spicy food. Patient denies: fever/chills, n/v, appetite changes, pyrosis, regurgitation,dysphasia, unintentional wt loss, ab pain. 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 [facility] Medical History (Updated 03/14/25 @ 16:52 by Charleen Kamara CNP) Nicotine dependence Positive colorectal cancer screening using Cologuard test ASCUS of cervix with negative high risk HPV Surgical History (Updated 03/14/25 @ 11:35 by Charleen Kamara CNP) History of cholecystectomy Hx of gastric bypass Family History (Updated 03/14/25 @ 11:36 by Charleen Kamara CNP) Mother Diabetes HTN (hypertension) Heart disease Father Heart disease Social History Household Members: Spouse Housing: Apartment Alcohol intake: current Alcohol intake frequency: holidays/special occasions only Patient Tobacco Use Status: Current everyday Tobacco user Tobacco use type: Cigarette Cigarettes Per Day: 4 Years Smoked: 15 Review of Systems Const Reports as per HPI ENT Reports as per HPI Card Reports as per HPI Resp Reports as per HPI GI Reports as per HPI Reports as per HPI Physical Exam Vital Signs: Last Vital Signs Pulse 97 03/14/25 11:15 BP 138/76 03/14/25 11:15 Pulse Ox 96 03/14/25 11:15 Oxygen Delivery Method Room Air 03/14/25 11:15 BMI result Body Mass Index 42.9 Const General: healthy appearing, no acute distress and well developed Nutritional Appearance: obese Orientation/consciousness: patient oriented x3 HEENT Head: Yes normal to inspection, Yes normocephalic and Yes atraumatic Face and sinus: Yes normal facial exam Eyes General: appearance normal, both eyes and all related structures Neck Neck: Yes normal visual inspection Resp Effort & Inspection: normal respiratory effort, able to speak in complete sentences, no tracheal deviation and symmetric chest movement Auscultation: clear to auscultation bilaterally Cardio Jugular venous distension: no JVD Rate: regular rate Rhythm: regular rhythm Heart sounds: S1 normal heart sound present, S2 normal heart sound present, no gallops and no murmurs GI Inspection: Yes normal to inspection, No distended and Yes obesity Palpation (GI): Soft to palpation, not firm, nontender and No hepatosplenomegaly present Auscultation: normal bowel sounds Neuro General: patient oriented x3 Gait exam (Neuro): Normal gait present Psych Appearance: grossly normal Mental Status: mental status grossly normal Speech and movement: Normal speech and movement present Affect: normal affect Attitude: cooperative Thought process: Normal thought process present Thought content: Normal thought content present Insight: Good insight present (Psych) Judgement: Good judgement present (Psych) Assessment & Plan Assessment & Plan (1) Positive colorectal cancer screening using Cologuard test: Comment: positive Cologuard collected 08/22/2024. Code(s): R19.5 - Other fecal abnormalities Category: Medical Plan: positive Cologuard collected 08/22/2024. This will be her first colonoscopy. Diagnostic Tests: Prescriptions for laxative tablets and Miralax sent to pharmacy; instructions for Gatorade purchase and clear liquid diet given. Patient educated on procedure preparation, including avoiding certain foods and ensuring clear liquid intake. Advised on necessity for ride post-procedure due to sedation. (2) Nicotine dependence: Code(s): F17.200 - Nicotine dependence, unspecified, uncomplicated Category: Medical Qualifiers: Nicotine product type: cigarettes Substance use status: uncomplicated Qualified Code(s): F17.210 - Nicotine dependence, cigarettes, uncomplicated Plan: Daily tobacco use, pt motivated to quit. Medications: - Nicotine patch 14mg TD QD x6wks, then 7mg TD QD x2wks (Rx sent) Lifestyle Modifications: Smoking cessation counseling, encouraged to set quit date, avoid smoking while on patch. follow up:cessation progress to be monitored by PCP Plan Follow-up after colonoscopy or sooner as needed Time: I spent a total of 25 minutes on the date of encounter which includes: Preparing to see the patient (reviewed previous documentation, test results and medical history) Performing a medically appropriate exam and/or evaluation Ordering medications, tests, and procedures Documenting clinical information in the health record Orders: Orders Complete Blood Count Auto Diff Today R19.5 - Other fecal abnormalities IRON PROFILE Today R19.5 - Other fecal abnormalities Medications: New polyethylene glycol 3350 (Miralax) per colonoscopy prep instructions 238 grams PO ONCE 238 grams 0RF nicotine Begin with step 2 (14 mg/day) for 6 weeks, followed by step 3 (7 mg/day) for 2 weeks. 3 patches transdermal Q24H 14 ea 3RF nicotine Begin with step 2 (14 mg/day) for 6 weeks, followed by step 3 (7 mg/day) for 2 weeks. 1 patch transdermal Q24H 14 ea 1RF bisacodyl Take four tablets once for 1 day per colonoscopy instructions 5 mg PO ONCE 1 day 4 tabs 0RF Coding Level of Care Code New Pt New Pt Level 3 (75486) Patient Type New Diagnoses Positive colorectal cancer screening using Cologuard test R19.5 Cigarette nicotine dependence without complication F17.210 Nicotine product type: cigarettes Substance use status: uncomplicated
--- OUTSIDE RECORDS SUMMARY | 2025-03-14 12:08 | XMS_ITS | Encounter Summary ---
Author Organization [employer] Address [address] [place] [address] 7 [place] [address] Care Team Providers Care Data Conversion Operator Name Role Phone Tonia Mary NP Primary Care Provider [phone] Reason for Visit * Reason Onset Date Comments New Patient 10/19/2023 Encounter Details Date Type Department Care Team ([facility] st Contact Info) Description 10/19/2023 Telephone [facility] [address] [place], [place] [phone] Arun Lemus MD 230 [place] [address] New Patient Social History Tobacco Use Types [...] 10/19/2023 5:17 PM EST PT is on [facility] List as of 10/15/2023 documented in this encounter Plan of Treatment Not on file documented as of this encounter Visit Diagnoses Not on filedocumented in this encounter Care Teams Data Conversion Operator Relationship Specialty Start Date End Date Tnoia Mary NP [address] [place] [address] PCP - General Family Medicine 07/28/24 documented as of this encounter
== END 2025-03-14 11:44 | disposition home or self-care (01) ==
PROVIDERS: PCP Nurse Practitioner Family; Visit Provider Nurse Practitioner Family
DX: R19.5 Other fecal abnormalities (principal); F17.210 Nicotine dependence, cigarettes, uncomplicated
CPT/HCPCS: 99203

== ENCOUNTER 2025-03-15 07:59 | Outpatient (AMB) | payer MEDICAID, SELFPAY ==
--- OUTSIDE RECORDS SUMMARY | 2025-03-15 08:02 | XMS_ITS | Encounter Summary ---
Author Organization [employer] Address [address] [place] [address] 7 [place] [address] Care Team Providers Care Sales Applications Engineer Name Role Phone Tonia Mary NP Primary Care Provider [phone] Reason for Visit * Reason Onset Date Comments New Patient 10/19/2023 Encounter Details Date Type Department Care Team ([facility] st Contact Info) Description 10/19/2023 Telephone [facility] [address] [place], [place] [phone] Arun Lemus MD [address] [place] [address] New Patient Social History Tobacco Use Types [...] 10/19/2023 5:17 PM EST PT is on [facility] List as of 10/15/2023 documented in this encounter Plan of Treatment Not on file documented as of this encounter Visit Diagnoses Not on filedocumented in this encounter Care Teams Sales Applications Engineer Relationship Specialty Start Date End Date Tonia Mary NP [address] [place] [address] PCP - General Family Medicine 07/28/24 documented as of this encounter
[2025-03-15 08:11] VITALS: BP 132/78; BMI 42.7
--- NOTE | 2025-03-15 08:11 | A.OFFVIS_ITS ---
Vital Signs 03/15/25 08:11 Height 5 ft 3 in Weight 241 lb BMI 42.7 BP 132/78 Intake Visit Reasons: labs results Allergies No Known Allergies Allergy (Verified 03/14/25 11:14) HPI Comments Details: Presenting for follow-up . FSH/LH= 20.6/13.2. [facility] Medical History Nicotine dependence Positive colorectal cancer screening using Cologuard test ASCUS of cervix with negative high risk HPV Surgical History History of cholecystectomy Hx of gastric bypass Family History Mother Diabetes HTN (hypertension) Heart disease Father Heart disease Social History Household Members: Spouse Housing: Apartment Alcohol intake: current Alcohol intake frequency: holidays/special occasions only Patient Tobacco Use Status: Current everyday Tobacco user Tobacco use type: Cigarette Cigarettes Per Day: 4 Years Smoked: 15 Review of Systems Const All systems reviewed & are unremarkable except as noted in HPI and below Reports as per HPI and Reports no additional complaints GI Reports no additional complaints Reports no additional complaints Physical Exam Vital Signs: Last Vital Signs BP 132/78 03/15/25 08:11 BMI result Body Mass Index 42.7 Assessment & Plan Assessment & Plan (1) Family planning: Code(s): Z30.09 - Encounter for other general counseling and advice on contraception Category: Social Hx Plan: Discussed with the patient the results of FSH/LH can not rule out menopause, recommended method of control. Discussed with the patient the different options of control including control pills/Nuvaring, DMPA, different types of IUD ?s, sterilization. All the pros, cons, risks and benefits of each were discussed with the patient. The patient decided to go ahead with an IUD, so a more detailed discussion was carried on including types (Progesterone, Copper), mechanism of action, risks (infection, uterine perforation, failure with ectopic , septic AB, dysmenorrhea with Paraguard, others) benefits (efficient contraceptive method, hypo menorrhea with Progesterone IUD, others) the patient is interested in ParaGard IUD. Insurance paperwork signed and the patient was instructed to call within 1-2 weeks for IUD insertion when the ParaGard IUD is available. Meanwhile instructions given the patient to use a backup method for control. All questions answered, the patient verbalized understanding. Coding Level of Care Code Est Pt Level 3 (87989) Diagnoses Family planning Z30.09
== END 2025-03-15 08:57 | disposition home or self-care (01) ==
LOC: HO.HWS 07:59
PROVIDERS: PCP Nurse Practitioner Family; Visit Provider Obstetrics & Gynecology
DX: Z30.09 Encounter for other general counseling and advice on contraception (principal)
CPT/HCPCS: 99213

== ENCOUNTER → 2025-03-15 07:59 | Outpatient (BNVA) | payer MEDICAID, SELFPAY | PROVIDERS: PCP Nurse Practitioner Family; Visit Provider Obstetrics & Gynecology | DX: Z30.09 Encounter for other general counseling and advice on contraception (principal) | CPT/HCPCS: 99212 ==

== ENCOUNTER 2025-04-11 15:27 | Outpatient (REF) | payer MEDICAID, SELFPAY ==
--- NOTE | ~2025-04-11 | US_ITS ---
CLINICAL HISTORY: D25.9 - Leiomyoma of uterus, unspecified Ultrasound of the female pelvis Comparison: US - US PELVIC AND TRANSVAGINAL - 10/10/24 16:05 EST Technique: Grayscale ultrasound with assistance of color Doppler. Transabdominal scanning performed for overall anatomy. Transvaginal scanning performed for better anatomic delineation. Findings: Anteverted uterus measures 7.2 x 4.0 x 5.5 cm, previously 8.5 x 3.9 x 4.9 cm. Heterogeneous myometrium, subserosal fibroid of the right posterior uterine fundus/body 2.4 x 2.4 x 2.3 cm, previously 2.3 x 1.9 x 2.2 cm. Unremarkable homogeneously hyperechoic endometrium, 7 mm in thickness. Nabothian cysts. Right ovary is not visualized, no right adnexal mass is seen. Normal left ovary, 2.4 x 1.7 x 1.4 cm. No abnormal vascular flow. No free fluid. Impression: 1. Mildly enlarged uterine fibroid. 2. Nonvisualization of right ovary. This document has been electronically signed by: Kelsey Montaño MD on 04/12/2025 14:39:36
--- OUTSIDE RECORDS SUMMARY | 2025-04-11 15:39 | XMS_ITS | Encounter Summary ---
Author Organization [email or web address] Address [address] [place] [address] 7 [place] [address] Care Team Providers Care Transcription Specialist Name Role Phone Tonia Mary NP Primary Care Provider [phone] Reason for Visit * Reason Onset Date Comments New Patient 10/19/2023 Encounter Details Date Type Department Care Team ([facility] st Contact Info) Description 10/19/2023 Telephone [facility] [address] [place], [place] [phone] Arun Lemus MD [address] [place] [address] New Patient Social History Tobacco Use Types [...] PM EST PT is on [facility] List as of 10/15/2023 documented in this encounter Plan of Treatment Not on file documented as of this encounter Visit Diagnoses Not on filedocumented in this encounter Care Teams Transcription Specialist Relationship Specialty Start Date End Date Tonia Mary NP [address] [place] [address] PCP - General Family Medicine 07/28/24 documented as of this encounter
--- OUTSIDE RECORDS SUMMARY | 2025-04-11 15:39 | XMS_ITS | Patient Health Record ---
Author Organization [facility] Address [address] [place] [address] Care Team Providers Care Poultry Pinner Name Role Phone Segundo Ribera Unavailable [phone] Reason For Referral No Information Plan Of Treatment No Information
== END 2025-04-11 15:28 | disposition home or self-care (01) ==
LOC: HO.US 15:27
PROVIDERS: PCP Nurse Practitioner Family; Visit Provider Obstetrics & Gynecology
DX: D25.9 Leiomyoma of uterus, unspecified (principal)
CPT/HCPCS: 76830; 76856

== ENCOUNTER → 2025-04-11 15:29 | Outpatient (BNV) | payer MEDICAID, SELFPAY | PROVIDERS: PCP Nurse Practitioner Family; Visit Provider Radiology Diagnostic Radiology | DX: D25.9 Leiomyoma of uterus, unspecified (principal) | CPT/HCPCS: 76830; 76856 ==

== ENCOUNTER 2025-04-17 12:53 | Outpatient (REF) | payer MEDICAID, SELFPAY ==
--- OUTSIDE RECORDS SUMMARY | 2025-04-17 13:32 | XMS_ITS | Patient Health Record ---
Author Organization [facility] Address [address] [place] [address] Care Team Providers Care Wound Care Rn Name Role Phone Segundo Ribera Unavailable [phone] Reason For Referral No Information Plan Of Treatment No Information
--- OUTSIDE RECORDS SUMMARY | 2025-04-17 13:32 | XMS_ITS | Encounter Summary ---
Author Organization [employer] Address [address] [place] [address] 7 [place] [address] Care Team Providers Care Wildlife Refuge Manager Name Role Phone Tonia Mary NP Primary Care Provider [phone] Reason for Visit * Reason Onset Date Comments New Patient 10/19/2023 Encounter Details Date Type Department Care Team ([facility] st Contact Info) Description 10/19/[address] [facility]ICINE [address] [place], [place] [phone] Arun Lemus MD [address] [place] [address] New Patient Social History Tobacco Use Types [...] 10/19/2023 5:17 PM EST PT is on [facility] List as of 10/15/2023 documented in this encounter Plan of Treatment Not on file documented as of this encounter Visit Diagnoses Not on filedocumented in this encounter Care Teams Wildlife Refuge Manager Relationship Specialty Start Date End Date Tonia Mary NP [address] [place] [address] PCP - General Family Medicine 07/28/24 documented as of this encounter
[2025-04-18 09:24] LABS: Follicle Stimulating Hormone 24.9 mIU/mL
== END 2025-04-17 12:54 | disposition home or self-care (01) ==
LOC: HO.LAB 12:53
PROVIDERS: PCP Nurse Practitioner Family; Visit Provider Obstetrics & Gynecology
DX: N91.2 Amenorrhea, unspecified (principal)
CPT/HCPCS: 36415; 83001; 83002

== ENCOUNTER 2025-04-18 15:56 | Outpatient (AMB) | payer MEDICAID, SELFPAY ==
[2025-04-18 15:58] VITALS: BMI 42.7
--- NOTE | 2025-04-18 15:58 | A.OFFVIS_ITS ---
Vital Signs 04/18/25 15:58 Height 5 ft 3 in Weight 241 lb BMI 42.7 Intake Visit Reasons: ultrasound and labs results Allergies No Known Allergies Allergy (Verified 03/14/25 11:14) HPI Comments Details: Presenting for follow-up ultrasound regarding uterine myoma seen on previous pelvic ultrasound. The patient is doing well with no complaints no abnormal uterine bleeding, pelvic pressure or pain. Pelvic ultrasound done recently showed the following: Anteverted uterus measures 7.2 x 4.0 x 5.5 cm, previously 8.5 x 3.9 x 4.9 cm. Heterogeneous myometrium, subserosal fibroid of the right posterior uterine fundus/body 2.4 x 2.4 x 2.3 cm, previously 2.3 x 1.9 x 2.2 cm. Unremarkable homogeneously hyperechoic endometrium, 7 mm in thickness. Nabothian cysts. Right ovary is not visualized, no right adnexal mass is seen. Normal left ovary, 2.4 x 1.7 x 1.4 cm. No abnormal vascular flow. No free fluid. Impression: 1. Mildly enlarged uterine fibroid. 2. Nonvisualization of right ovary. FSH /LH= 24.9/18.7 PFSH Medical History Nicotine dependence Positive colorectal cancer screening using Cologuard test ASCUS of cervix with negative high risk HPV Surgical History History of cholecystectomy Hx of gastric bypass Family History Mother Diabetes HTN (hypertension) Heart disease Father Heart disease Social History Household Members: Spouse Housing: Apartment Alcohol intake: current Alcohol intake frequency: holidays/special occasions only Patient Tobacco Use Status: Current everyday Tobacco user Tobacco use type: Cigarette Cigarettes Per Day: 4 Years Smoked: 15 Review of Systems Const All systems reviewed & are unremarkable except as noted in HPI and below Reports as per HPI and Reports no additional complaints GI Reports no additional complaints Reports no additional complaints Assessment & Plan Assessment & Plan (1) Uterine myoma: Code(s): D25.9 - Leiomyoma of uterus, unspecified Category: Medical Plan: Discussed with the patient the findings on pelvic ultrasound & the risk of myosarcoma; in addition reviewed with the patient that malignancy and pre malignancy cannot be ruled out without hysterectomy for pathological evaluation ; furthermore, explained to the patient the limitation of pelvic ultrasound and endometrial biopsy in the setting. Discussed with the patient the options of treatment including expectant management versus hysterectomy; the pros and cons, risks benefits of each approach were discussed with the patient including the fact that in cases of myosarcoma, surgical treatment can lead to early diagnosis and positively affects the prognosis; after further discussion, the patient decided to proceed with expectant management. Will repeat pelvic ultrasound periodically. I nstructions given to patient to call in case any of the following occurs: pressure symptoms, abnormal uterine bleeding, pelvic pain; and to schedule a 12 months pelvic ultrasound (order placed) and a follow-up appointment . All questions answered, the patient verbalized understanding and agreed with the plan . (2) Thickened endometrium: Code(s): R93.89 - Abnormal findings on diagnostic imaging of other specified body structures Category: Medical Plan: Discussed with the patient endometrial thickness above 4 mm in menopause , the differential diagnosis of a thickened endometrium includes but not limited to endometrial polyp, hyperplasia or carcinoma. Explained to the patient that endometrial each thickness is less predictive of endometrial neoplasia in asymptomatic patients, i.e. those without postmenopausal uterine bleeding. The sensitivity and specificity for detecting endometrial carcinoma at an endometrial thickness of >= 5mm was 83 and 72 percent, respectively; this is lower than in patients with bleeding. Studies have shown that postmenopausal patients without uterine bleeding who had an endometrial thickness >11 mm had an endometrial carcinoma risk of 6.7 percent; this risk is similar to postmenopausal patients with bleeding and an endometrial thickness >5 mm. Recommended endometrial sampling to rule endometrial pathology via either office endometrial biopsy or diagnostic hysteroscopy/D&C with possible polypectomy/m yomectomy. All pros and cons, risks and benefits of each approach were discussed with the patient, the patient decided to proceed with endometrial biopsy. Instructions given the patient to schedule an EMB appointment within 2 weeks. All questions answered, the patient verbalized (3) Family planning: Code(s): Z30.09 - Encounter for other general counseling and advice on contraception Category: Medical Plan: Discussed with the patient the levels of FSH is in the menopausal range and the level of LH could be menopausal versus non menopausal, the risk of is very low but not 0, offered the patient in condom use versus ParaGard IUD, all pros and cons, risks and benefits of each were discussed with the patient, the patient decided to proceed with ParaGard IUD. Instructions given the patient to schedule ParaGard IUD insertion as soon as possible Orders: Orders US pelvic and transvaginal 1 Year D25.9 - Leiomyoma of uterus, unspecified Coding Level of Care Code Est Pt Level 3 (81835) Diagnoses Uterine myoma D25.9 Thickened endometrium R93.89 Family planning Z30.09
--- OUTSIDE RECORDS SUMMARY | 2025-04-18 15:59 | XMS_ITS | Patient Health Record ---
Author Organization [facility] Address [address] [place] [address] Care Team Providers Care Doula Name Role Phone Segundo Ribera Unavailable [phone] Reason For Referral No Information Plan Of Treatment No Information
--- OUTSIDE RECORDS SUMMARY | 2025-04-18 15:59 | XMS_ITS | Encounter Summary ---
Author Organization [employer] Address [address] [place] [address] 7 [place] [address] Care Team Providers Care District Loss Prevention Manager Name Role Phone Tonia Mary NP Primary Care Provider [phone] Reason for Visit * Reason Onset Date Comments New Patient 10/19/2023 Encounter Details Date Type Department Care Team ([facility] st Contact Info) Description 10/19/2023 Telephone [facility] [address] [place], [place] [phone] Arun Lemus MD 230 [place] [address] New Patient Social History Tobacco Use Types [...] 10/19/2023 5:17 PM EST PT is on [facility] List as of 10/15/2023 documented in this encounter Plan of Treatment Not on file documented as of this encounter Visit Diagnoses Not on filedocumented in this encounter Care Teams District Loss Prevention Manager Relationship Specialty Start Date End Date Tonia Mary NP [address] [place] [address] PCP - General Family Medicine 07/28/24 documented as of this encounter
== END 2025-04-18 16:15 | disposition home or self-care (01) ==
LOC: HO.HWS 15:56
PROVIDERS: PCP Nurse Practitioner Family; Visit Provider Obstetrics & Gynecology
DX: D25.9 Leiomyoma of uterus, unspecified (principal); R93.89 Abnormal findings on diagnostic imaging of other specified body structures; Z30.09 Encounter for other general counseling and advice on contraception
CPT/HCPCS: 99213

== ENCOUNTER → 2025-04-18 15:56 | Outpatient (BNVA) | payer MEDICAID, SELFPAY | PROVIDERS: PCP Nurse Practitioner Family; Visit Provider Obstetrics & Gynecology | DX: Z71.2 Person consulting for explanation of examination or test findings (principal); D25.9 Leiomyoma of uterus, unspecified; R93.89 Abnormal findings on diagnostic imaging of other specified body structures | CPT/HCPCS: 99212 ==

== ENCOUNTER 2025-04-26 14:22 | Outpatient (REF) | payer MEDICAID, SELFPAY ==
[2025-04-26 20:26] LABS: CT PCR NOT DETECTED (Not Detect.); NG PCR NOT DETECTED (Not Detect.)
== END 2025-04-26 14:23 | disposition home or self-care (01) ==
LOC: HO.LNP 14:22
PROVIDERS: PCP Nurse Practitioner Family; Visit Provider Obstetrics & Gynecology
DX: Z30.430 Encounter for insertion of intrauterine contraceptive device (principal); R93.89 Abnormal findings on diagnostic imaging of other specified body structures
CPT/HCPCS: 58100; 58300; 81025; 87491; 87591; 88305; J7300

== ENCOUNTER 2025-05-03 15:01 | Outpatient (AMB) | payer MEDICAID, SELFPAY ==
--- OUTSIDE RECORDS SUMMARY | 2025-05-03 15:06 | XMS_ITS | Encounter Summary ---
Author Organization [employer] Address [address] [place] [address] 7 [place] [address] Care Team Providers Care Fuse Cutter Name Role Phone Tonia Mary NP Primary Care Provider [phone] Reason for Visit * Reason Onset Date Comments New Patient 10/19/2023 Encounter Details Date Type Department Care Team ([facility] st Contact Info) Description 10/19/2023 Telephone [facility] [address] [place], [place] [phone] Arun Lemus MD [address] [place] [address] New Patient Social History Tobacco Use Types [...] 10/19/2023 5:17 PM EST PT is on [facility] List as of 10/15/2023 documented in this encounter Plan of Treatment Not on file documented as of this encounter Visit Diagnoses Not on filedocumented in this encounter Care Teams Fuse Cutter Relationship Specialty Start Date End Date Tonia Mary NP [address] [place] [address] PCP - General Family Medicine 07/28/24 documented as of this encounter
--- OUTSIDE RECORDS SUMMARY | 2025-05-03 15:06 | XMS_ITS | Patient Health Record ---
Author Organization [facility] Address [address] [place] [address] Care Team Providers Care Pill Packer Name Role Phone Segundo Ribera Unavailable [phone] Reason For Referral No Information Plan Of Treatment No Information
--- NOTE | 2025-05-03 15:22 | A.OFFVIS_ITS ---
Intake Visit Reasons: pre op Equipment Operator/Laborer/Supervisor: Equipment Operator/Laborer/Supervisor Present Allergies No Known Allergies Allergy (Verified 04/26/25 14:29) Is last menstrual period known: Yes Last menstrual period: 08/08/20 Post menopausal: No Patient : No Do you need a note to return to daycare/school/sports/work: Yes (for surgery on wednesday) HPI Comments Details: The patient is presenting after endometrial biopsy. The patient has no complaints, no vaginal bleeding, no feverishness chills or abdominal pain. The endometrial biopsy pathology report showed the following: Endometrium, biopsy: Benign proliferative endometrium and benign endocervical glandular epithelium; no atypia or carcinoma. Comment: Some fragments may be derived from benign polyps [facility] Medical History Nicotine dependence Positive colorectal cancer screening using Cologuard test ASCUS of cervix with negative high risk HPV Surgical History History of cholecystectomy Hx of gastric bypass Family History Mother Diabetes HTN (hypertension) Heart disease Father Heart disease Social History Household Members: Spouse Housing: Apartment Alcohol intake: current Alcohol intake frequency: holidays/special occasions only Patient Tobacco Use Status: Current everyday Tobacco user Tobacco use type: Cigarette Cigarettes Per Day: 4 Years Smoked: 15 Female Reproductive History Menstrual Date of last menstrual period: 08/08/20 Total pregnancies: 2 Full term: 2 Review of Systems Card Reports as per HPI and Reports no additional complaints Resp Reports as per HPI and Reports no additional complaints GI Reports as per HPI and Reports no additional complaints Reports as per HPI Physical Exam Const General: cooperative, healthy appearing and comfortable Resp Effort & Inspection: normal respiratory effort Auscultation: clear to auscultation bilaterally Percussion: percussion normal Cardio Palpation: normal PMI Rate: regular rate Rhythm: regular rhythm Heart sounds: no murmurs and no rubs Peripheral pulses: Peripheral pulses 2+ throughout GI Inspection: Yes normal to inspection Palpation (GI): Soft to palpation, nontender, no guarding, not rigid and No hepatosplenomegaly present Percussion: Yes normal to percussion Auscultation: normal bowel sounds Rectal Exam - Female: deferred Assessment & Plan Assessment & Plan (1) Thickened endometrium: Comment: Proliferative endometrium Endometrial polyp on EMB pathology ParaGard IUD in utero Code(s): R93.89 - Abnormal findings on diagnostic imaging of other specified body structures Category: Medical Plan: Discussed with the patient the results of the pathology showing proliferative endometrium with fragments of endometrial polyp, recommended hysteroscopy D&C possible polypectomy/myomectomy with ParaGard IUD removal. In addition discussed the patient the pathology of the endometrium in post menopause is associated with an increase in the risk of endometrial hyperplasia and malignancy in patient with preferred of endometrial pathology in menopause. Will discuss options of treatment p.o. of/Mirena IUD progesterone treatment postoperatively Discussed with the patient the procedure , all benefits and risks including but not limited to inability to complete the procedure , insufficient endometrial tissue for a complete evaluation of the endometrial cavity , bleeding, infection, possible need for blood transfusion with all its risk ( HIV,syphilis, Hepatitis, anaphylaxis shock, others..), injury to bladder, rectum, possible need for laparoscopy/laparotomy or hysterectomy. The patient verbalized understanding and signed the consent. Instructions given the patient to stay NPO after midnight the day prior to the procedure and to take only the specific medication (s) discussed the morning of the surgical procedure and to schedule a 2 week postoperative appointment Coding Level of Care Code Est Pt Level 3 (83350) Diagnoses Thickened endometrium R93.89
== END 2025-05-03 15:54 | disposition home or self-care (01) ==
LOC: HO.HWS 15:02
PROVIDERS: PCP Nurse Practitioner Family; Visit Provider Obstetrics & Gynecology
DX: R93.89 Abnormal findings on diagnostic imaging of other specified body structures (principal)
CPT/HCPCS: 99213

== ENCOUNTER → 2025-05-03 15:01 | Outpatient (BNVA) | payer MEDICAID, SELFPAY | PROVIDERS: PCP Nurse Practitioner Family; Visit Provider Obstetrics & Gynecology | DX: Z01.818 Encounter for other preprocedural examination (principal); N85.8 Other specified noninflammatory disorders of uterus | CPT/HCPCS: 99212 ==

== ENCOUNTER 2025-05-11 08:31 | Day surgery (SDC) | payer MEDICAID, SELFPAY ==
--- OUTSIDE RECORDS SUMMARY | 2025-05-04 11:11 | XMS_ITS | Encounter Summary ---
Author Organization [employer] Address [address] [place] [address] [address] [place] [address] Care Team Providers Care Seam Closer Name Role Phone Tonia Mary NP Primary Care Provider [phone] Reason for Visit * Reason Onset Date Comments New Patient 10/19/2023 Encounter Details Date Type Department Care Team ([facility] st Contact Info) Description 10/19/2023 Telephone [facility] MEDICINE [address] [place], [place] [phone] Arun Lemus MD [address] [place] [address] New Patient Social History Tobacco Use Types [...] 10/19/2023 5:17 PM EST PT is on [facility] List as of 10/15/2023 documented in this encounter Plan of Treatment Not on file documented as of this encounter Visit Diagnoses Not on filedocumented in this encounter Care Teams Seam Closer Relationship Specialty Start Date End Date Tonia Mary NP [address] [place] [address] PCP - General Family Medicine 07/28/24 documented as of this encounter
--- OUTSIDE RECORDS SUMMARY | 2025-05-04 11:11 | XMS_ITS | Patient Health Record ---
Author Organization [facility] Address [address] [place] [address] Care Team Providers Care Transition Of Care Specialist Name Role Phone Segundo Ribera Unavailable [phone] Reason For Referral No Information Plan Of Treatment No Information
--- NOTE | 2025-05-10 08:27 | HO.ANESPROP2 ---
HPI - Anesthesia Eval Consult details Narrative: 54yo F for D&C Hysteroscopy,possible myomectomy,possible polypectomy,with IUD REMOVAL BMI 43 PMFSH Active Problems Active Problems: All Active Problems Encounter for insertion of ParaGard IUD (Acute) Thickened endometrium (Acute) Family planning (Acute) Nicotine dependence (Acute) Positive colorectal cancer screening using Cologuard test (Acute) Uterine myoma (Acute) Malpositioned IUD (Acute) Past Medical History Medical History Nicotine dependence Positive colorectal cancer screening using Cologuard test ASCUS of cervix with negative high risk HPV Family History Family History Mother Diabetes HTN (hypertension) Heart disease Father Heart disease Surgical History Surgical History History of cholecystectomy Hx of gastric bypass Social History Social History Household Members: Spouse Housing: Apartment Alcohol intake: current Alcohol intake frequency: holidays/special occasions only Patient Tobacco Use Status: Current everyday Tobacco user Tobacco use type: Cigarette Cigarettes Per Day: 3 Years Smoked: 15 Meds Allergies Allergy/AdvReac Type Severity Reaction Status Date / Time No Known Allergies Allergy Verified 05/11/25 08:42 Home Medications ?Medication ?Instructions ?Recorded ?Confirmed ?Last Taken ?Type acetaminophen 650 mg 650 mg PO Q8H PRN mild pain 02/15/25 05/11/25 Unknown History tablet,extended release diclofenac sodium 1 % topical gel 1 ea topical TID PRN other 02/15/25 05/11/25 Unknown History Assessment and Plan Assessment Anesthesia Assessment: Chart Reviewed
--- NOTE | 2025-05-11 08:46 | HO.ANESPROP2 ---
[facility] Active Problems Active Problems: All Active Problems (Updated 05/03/25 @ 15:34 by Rupert Beatty MD) Encounter for insertion of ParaGard IUD (Acute) Thickened endometrium (Acute) Family planning (Acute) Nicotine dependence (Acute) Positive colorectal cancer screening using Cologuard test (Acute) Uterine myoma (Acute) Malpositioned IUD (Acute) Past Medical History Medical History Nicotine dependence Positive colorectal cancer screening using Cologuard test ASCUS of cervix with negative high risk HPV Functional capacity: independent ambulation Patient : No Family History Family History Mother Diabetes HTN (hypertension) Heart disease Father Heart disease Family history of problems with anesthesia: No Surgical History Surgical History History of cholecystectomy Hx of gastric bypass History of Problems with Anesthesia: No Social History Social History Household Members: Spouse Housing: Apartment Alcohol intake: current Alcohol intake frequency: holidays/special occasions only Patient Tobacco Use Status: Current everyday Tobacco user Tobacco use type: Cigarette Cigarettes Per Day: 4 Years Smoked: 15 Advance Directives: No Advance Directives Information Provided: Yes Meds Allergies Allergy/AdvReac Type Severity Reaction Status Date / Time No Known Allergies Allergy Verified 05/11/25 08:42 Active Medications: Current Medications Albuterol Sulfate (Albuterol Sulfate (0.083%) 2.5 Mg/3 Ml Vial.Neb) 2.5 mg INHALE ONCE PRN PRN Reason: Shortness of Breath/Wheezing Lactated Ringer's (Lr) 1,000 mls @ 100 mls/hr IVCONT .Q10H [facility] Home Medications ?Medication ?Instructions ?Recorded ?Confirmed ?Last Taken ?Type acetaminophen 650 mg 650 mg PO Q8H PRN mild pain 02/15/25 05/11/25 Unknown History tablet,extended release diclofenac sodium 1 % topical gel 1 ea topical TID PRN other 02/15/25 05/11/25 Unknown History Exam Airway Mallampati Class: II TM Dist: >3cm Neck ROM: Full Heart: RRR Lungs: CYA Assessment and Plan Assessment Anesthesia Assessment: Anesthesia Plan Discussed Final Anesthetic Review Family History of Problems with Anesthesia: No History of Problems with Anesthesia: No NPO: Yes ASA Class: II Final Preanesthetic Review: Meds/Allgs Chart Reviewed, Consent Obtained/Reviewed and Anes Risks/Benef Reviewed Patient Risk: Intermediate Procedure Risk: Low Anesthetic Plan Anesthetic Plan: GA Disposition: Standard PACU
[2025-05-11 08:51] LABS: UPreg QC Valid YES
[2025-05-11 08:52] VITALS: BMI 40.7
--- NOTE | 2025-05-11 08:53 | MHC.SHP ---
Pre-Procedural Eval Section A - 24 Hr Update-Section A only Date of Service: 05/11/25 The patient is an INPATIENT: No Changes since office visit: No Cold of Flu in the past 2 weeks, No New Medical Problems, No Changes in Medication and No Patient answered all questions The patient has been examined within 24 hours of the surgical procedure. The History & Physical has been completed within 30 days and I have reviewed it.: Yes Section B - Complete if H&P > 30 days Chief Complaint: Abnormal findings on diagnostic imaging of other Allergies: Allergies Allergy/AdvReac Type Severity Reaction Status Date / Time No Known Allergies Allergy Verified 05/11/25 08:42 Plan Diagnosis/Plan: Unchanged I have reviewed the history and physical and performed a pertinent physical examination on my patient. No changes have occurred unless specified. Time Spent With Patient Time: Total time managing care of this patient today ____ minutes.
[2025-05-11] MEDS: Lactated Ringers 1,000 ML 100 ML IVCONT (08:59)
--- NOTE | 2025-05-11 09:01 | HO.ANESPROP2 ---
[facility] Active Problems Active Problems: All Active Problems (Updated 05/03/25 @ 15:34 by Rupert Beatty MD) Encounter for insertion of ParaGard IUD (Acute) Thickened endometrium (Acute) Family planning (Acute) Nicotine dependence (Acute) Positive colorectal cancer screening using Cologuard test (Acute) Uterine myoma (Acute) Malpositioned IUD (Acute) Past Medical History Medical History Nicotine dependence Positive colorectal cancer screening using Cologuard test ASCUS of cervix with negative high risk HPV Functional capacity: independent ambulation Family History Family History Mother Diabetes HTN (hypertension) Heart disease Father Heart disease Family history of problems with anesthesia: No Surgical History Surgical History History of cholecystectomy Hx of gastric bypass History of Problems with Anesthesia: No Social History Social History Household Members: Spouse Housing: Apartment Alcohol intake: current Alcohol intake frequency: holidays/special occasions only Patient Tobacco Use Status: Current everyday Tobacco user Tobacco use type: Cigarette Cigarettes Per Day: 3 Years Smoked: 15 Smoked in Last 30 Days: Yes Patient Interested in Nicotine Replacement: Yes Use of substances other than those prescribed or required for medical reasons: No Have you been hit, kicked, punched, or otherwise hurt by someone within the past year? If so, by whom?: No Are you DNR?: No Advance Directives: No Advance Directives Information Provided: Yes Patient : No Meds Allergies Allergy/AdvReac Type Severity Reaction Status Date / Time No Known Allergies Allergy Verified 05/11/25 08:42 Active Medications: Current Medications Albuterol Sulfate (Albuterol Sulfate (0.083%) 2.5 Mg/3 Ml Vial.Neb) 2.5 mg INHALE ONCE PRN PRN Reason: Shortness of Breath/Wheezing Fentanyl (Fentanyl Citrate/Pf 100 Mcg/2 Ml Vial) 25 mcg IVPUSH Q5M PRN PRN Reason: Pain, Moderate to Severe (Pain Scale 4-10) Stop: 05/11/25 14:59 Lactated Ringer's (Lr) 1,000 mls @ 100 mls/hr IVCONT .Q10H [facility] Last Admin: 05/11/25 08:59 Dose: 100 mls/hr Acetaminophen (Ofirmev) 1,000 mg in 100 mls @ 400 mls/hr IV ONCE ONE Stop: 05/11/25 09:12 Naloxone HCl (Naloxone Hcl 0.4 Mg/Ml Vial) 0.04 mg IVPUSH Q5M PRN PRN Reason: Excessive sedation or RR < 8 Home Medications ?Medication ?Instructions ?Recorded ?Confirmed ?Last Taken ?Type acetaminophen 650 mg 650 mg PO Q8H PRN mild pain 02/15/25 05/11/25 Unknown History tablet,extended release diclofenac sodium 1 % topical gel 1 ea topical TID PRN other 02/15/25 05/11/25 Unknown History Exam Height,Weight and Vital Signs: Height 5 ft 2 in Pertinent Lab Results Pertinent Lab Results: Laboratory Tests 05/11/25 08:43 Urine Test NEGATIVE Airway Mallampati Class: II (protruding upper incisors) TM Dist: >3cm Neck ROM: Full Heart: RRR Lungs: CTA Assessment and Plan Final Anesthetic Review Family History of Problems with Anesthesia: No History of Problems with Anesthesia: No NPO: Yes ASA Class: II Final Preanesthetic Review: Meds/Allgs Chart Reviewed, Consent Obtained/Reviewed and Anes Risks/Benef Reviewed Patient Risk: Low Procedure Risk: Low Anesthetic Plan Anesthetic Plan: GA and MAC: Disposition: Standard PACU
--- NOTE | 2025-05-11 11:04 | P.BOP_ITS ---
Brief Operative Note Date of Service: 05/11/25 Pre-op diagnosis: Endometrial polyp on EMB pathology Post-op diagnosis: same (? Small endometrial polyp) Procedure: Hysteroscopy D&C, Polypectomy, ParaGard IUD removal Surgeon: Rupert Beatty MD Anesthesia: GLMA Was an Digital Sales Director used for this Procedure?: No Estimated blood loss (mL): 0 Pathology: other (Endometrial Scrapping. Polyp) Condition: stable Disposition: PACU
[2025-05-11 11:05] VITALS: BP 148/99; PULSE 76; RESP 16; TEMP 36.3; O2SAT 94
--- NOTE | 2025-05-11 11:05 | P.OP_ITS ---
Operative Note Operative Note Date of Service: 05/11/25 Narrative: Preop Diagnosis: Endometrial polyp by EMB pathology Operation: Diagnostic Hysteroscopy, Dilataion & Curettage and polypectomy, with ParaGard IUD removal Post Op Diagnosis: ? Endometrial Polyp QBL: Minimal Anesthesia: GLMA Surgeon: Rupert Beatty MD Python Django Developer: None Complication: None Pathology: Endometrial Scrapings, Endometrial polyp Procedure: The patient was put in the dorsal lithotomy position, scrubbed, and draped in the usual manner. A sterile speculum was inserted in the patient's vagina. The anterior lip of the cervix was grasped with a single tooth tenaculum. A long Ann-Marie clamp used to grasp the ParaGard IUD string, IUD removal with removed without any complication. The cervix was then dilated up to 5 mm, then the scope was inserted in the patient's uterus. Inspection revealed ? Small endometrial polyp. The Myosure Reach device was used; it was introduced through the operative channel and polypectomy done with no complications. The scope was then taken out from the uterine cavity, sharp curettings was carried on with minimal to moderate amount of tissues retrieved. At the end of the procedure, all instruments were taken out of the patient uterine and vaginal cavity. The single tooth tenaculum was removed and homeostasis was assured using pressure,. The patient tolerated the procedure well and was transferred to the PACU in a stable condition.
[2025-05-11 11:10] VITALS: BP 149/92; PULSE 76; RESP 14; O2SAT 92
[2025-05-11 11:15] VITALS: BP 145/91; PULSE 76; RESP 16; O2SAT 93
[2025-05-11 11:20] VITALS: BP 139/93; PULSE 74; RESP 14; O2SAT 95
[2025-05-11 11:35] VITALS: BP 152/81; PULSE 67; RESP 16; TEMP 36.1; O2SAT 95
--- NOTE | 2025-05-11 11:43 | HO.POSTANES ---
Post Anesthesia Evaluation Post Anesthesia Evaluation Date of Service: 05/11/25 Vital Signs: Vital Signs Temp Pulse Resp BP Pulse Ox O2 Del Method 05/11/25 11:35 97 F 67 16 152/81 H 95 Room Air 05/11/25 11:20 74 14 139/93 H 95 Room Air 05/11/25 11:15 76 16 145/91 H 93 Room Air 05/11/25 11:10 76 14 149/92 H 92 Room Air 05/11/25 11:05 97.3 F 76 16 148/99 H 94 Room Air Anesthesia: General LMA Mental Status: Awake Pain Control: Satisfactory Nausea/Vomiting: None Hydration: Adequate Anesthesia-Related Issues: No Anes. Related Issues
== END 2025-05-11 12:06 | disposition home or self-care (01) ==
PROVIDERS: PCP Nurse Practitioner Family; Visit Provider Obstetrics & Gynecology
PROC: 0UDB8ZZ Extraction of Endometrium, Via Natural or Artificial Opening Endoscopic (ICD-10-PCS; CPT 58558; principal; 2025-05-11 11:00)
DX: N84.0 Polyp of corpus uteri (principal); N71.1 Chronic inflammatory disease of uterus; R87.610 Atypical squamous cells of undetermined significance on cytologic smear of cervix (ASC-US); Z90.49 Acquired absence of other specified parts of digestive tract; Z98.84 Bariatric surgery status
CPT/HCPCS: 58558; 58301; 81025; 88305; J1100; J1885; J2003; J2250; J2405; J2704; J3010

== ENCOUNTER → 2025-05-11 08:31 | Outpatient (BNV) | payer MEDICAID, SELFPAY | PROVIDERS: PCP Nurse Practitioner Family; Visit Provider Obstetrics & Gynecology | DX: N84.0 Polyp of corpus uteri (principal); Z30.432 Encounter for removal of intrauterine contraceptive device | CPT/HCPCS: 58301; 58558 ==

== ENCOUNTER 2025-05-30 15:37 | Outpatient (AMB) | payer MEDICAID, SELFPAY ==
--- NOTE | 2025-05-30 15:38 | MHC.OFFVIS ---
Intake Visit Reasons: Post op Allergies No Known Allergies Allergy (Verified 05/11/25 08:42) HPI Comments Details: The patient is presenting post hysteroscopy D&C , IUD removal no complaints minimal vaginal bleeding no feverishness chills or abdominal pain. Intraoperative finding endometrial polyp The pathology showed the following: A. Endometrial polyp, resection: Fragments of benign endometrial polyp with chronic endometritis and breakdown; no atypia or carcinoma. B. Endometrium, curettage: Benign endometrium with chronic endometritis and breakdown, and benign endocervical glandular and squamous epithelium; no atypia or carcinoma FSH/LH done in 04/04 were in the menopausal range PFSH Medical History Nicotine dependence Positive colorectal cancer screening using Cologuard test ASCUS of cervix with negative high risk HPV Surgical History History of cholecystectomy Hx of gastric bypass Family History Mother Diabetes HTN (hypertension) Heart disease Father Heart disease Social History Household Members: Spouse Housing: Apartment Alcohol intake: current Alcohol intake frequency: holidays/special occasions only Patient Tobacco Use Status: Current everyday Tobacco user Tobacco use type: Cigarette Cigarettes Per Day: 3 Years Smoked: 15 Review of Systems Const All systems reviewed & are unremarkable except as noted in HPI and below Reports as per HPI and Reports no additional complaints GI Reports no additional complaints Reports no additional complaints Telehealth Telehealth Telehealth Platform: [facility] Location of provider rendering services: practice address Location of patient: address on file Patient Identification confirmed using: Name, : Yes Telehealth method: video Patient verbally consented to treatment: Yes Patient verbally consented to billing insurance company: Yes Patient informed of any privacy concerns related to visit: Yes Assessment & Plan Assessment & Plan (1) Thickened endometrium: Comment: Benign endometrium Endometrial polyp status post hysteroscopic polypectomy Code(s): R93.89 - Abnormal findings on diagnostic imaging of other specified body structures Category: Medical Plan: Discussed with the patient the intraoperative finding, the intraoperative finding and the results of the pathology. Explained to the patient the previous endometrial biopsy showed proliferative endometrium in contrast to D&C pathology which showed inactive endometrium and association of proliferative endometrium with an increase in the risk of endometrial hyperplasia and/or malignancy in menopause. Since D&C pathology showed inactive endometrium, there is no indication for further management unless any future bleeding occurs. Discussed with the patient the sensitivity, specificity, positive and negative predictive value, of endometrial biopsy in detecting endometrial pathology including but not limited to endometrial hyperplasia, cancer and other pathology; instructed the patient to call in case of vaginal bleeding, the next step will be further endometrial sampling evaluation to rule out endometrial pathology. All questions answered and the patient verbalized understanding and agreed with the plan. Coding Level of Care Code Tele Est Pt Level 3 (14391) Diagnoses Thickened endometrium R93.89
--- OUTSIDE RECORDS SUMMARY | 2025-05-30 16:23 | XMS_ITS | Patient Health Record ---
Author Organization [facility] Address [address] [place] [address] Care Team Providers Care Tricot Knitter Name Role Phone Segundo Ribera Unavailable [phone] Reason For Referral No Information Plan Of Treatment No Information
--- OUTSIDE RECORDS SUMMARY | 2025-05-30 16:23 | XMS_ITS | Encounter Summary ---
Author Organization [employer] Address [address] [place] [address] [address] [place] [address] Care Team Providers Care Karate Instructor Name Role Phone Tonia Mary NP Primary Care Provider [phone] Reason for Visit * Reason Onset Date Comments New Patient 10/19/2023 Encounter Details Date Type Department Care Team ([facility] st Contact Info) Description 10/19/2023 Telephone [facility] MEDICINE [address] [place], [place] [phone] Arun Lemus MD [address] [place] [address] New Patient Social History Tobacco Use Types [...] 10/19/2023 5:17 PM EST PT is on [facility] List as of 10/15/2023 documented in this encounter Plan of Treatment Not on file documented as of this encounter Visit Diagnoses Not on filedocumented in this encounter Care Teams Karate Instructor Relationship Specialty Start Date End Date Tonia Mary NP [address] [place] [address] PCP - General Family Medicine 07/28/24 documented as of this encounter
== END 2025-05-30 16:08 | disposition home or self-care (01) ==
LOC: HO.HWS 15:37
PROVIDERS: PCP Nurse Practitioner Family; Visit Provider Obstetrics & Gynecology
DX: R93.89 Abnormal findings on diagnostic imaging of other specified body structures (principal)
CPT/HCPCS: 99213

== ENCOUNTER 2025-06-25 10:25 | Day surgery (SDC) | payer MEDICAID, SELFPAY ==
--- OUTSIDE RECORDS SUMMARY | 2025-06-20 16:41 | XMS_ITS | Patient Health Record ---
Author Organization [facility] Address [address] [place] [address] Care Team Providers Care Forensic Identification Specialist Name Role Phone Segundo Ribera Unavailable [phone] Reason For Referral No Information Plan Of Treatment No Information
--- OUTSIDE RECORDS SUMMARY | 2025-06-20 16:41 | XMS_ITS | Clinical Summary ---
Author Organization [employer] Address [address] [place] [address] [address] [place] [address] Care Team Providers Care Greenhouse Florist Name Role Phone Tonia Mary BRENDAN Primary Care Provider [phone] Allergies No known active allergies Medications Diclofenac Sodium (Voltaren) 1 % gelIndications: Hand arthritis Apply 1 Application topically if needed in the morning, at noon, in the evening, and at bedtime (pain). 40 g 1 Active Active Problems Problem Noted Date Diagnosed Date Malpositioned intrauterine device 12/17/2024 Assessment & Plan (12/17/2024 8:30 PM EDT): Referral to [facility] [employer] [facility], pt to update if has not head [...] reflux disease 11/11/2015 Recurrent major depression 11/11/2015 Premenopausal menorrhagia 11/23/2011 Resolved Problems Problem Noted Date Diagnosed Date Resolved Date Chronic hepatitis C 11/11/2015 10/02/20 24 Encounters Date Type Department Care Team Description 06/08/2025 Telephone [facility] [address] [place] [phone] Tonia Mary NP Lab Orders (Pt requesting tb test for work ) 05/11/2025 Orders Only GENERIC EXTERNAL DATA DEPARTMENT Provider, Generic External Data 04/26/2025 Orders Only GENERIC EXTERNAL DATA DEPARTMENT Provider, Generic External Data 04/17/2025 Orders Only GENERIC EXTERNAL DATA DEPARTMENT Provider, Generic External Data from Last 3 Months Immunizations Immunization Administration Dates Next Due Hep A, Adult [...] 94 11/20/2024 4:08 PM EST Temperature 35.2 C (95.3 F) 11/20/2024 4:08 PM EST Respiratory Rate 18 11/20/2024 4:08 PM EST Oxygen Saturation 98% 11/20/2024 4:08 PM EST Inhaled Oxygen Concentration - - Weight 109 kg (239 lb 3.2 oz) 11/20/2024 4:08 PM EST Height 162.6 cm (5' 4 ) 11/20/2024 4:08 PM EST Body Mass Index 41.06 11/20/2024 4:08 PM EST Plan of Treatment Upcoming Encounters Date Type Department Care Team (Late st Contact Info) Description 07/02/2025 1:45 PM EDT Office Visit [facility] [address] [place], [place] [phone] Amber Tsai FNP [address] [place], [place] [phone] Health Maintenance Due Date Last Done Comments CT Colonography 1970 Colonoscopy 1970 FIT 1970 Sigmoidoscopy 1970 Family Planning (PISQ) 12/10/1987 Pneumococcal Vaccine: 50+ Years (2 of 2 - PCV) 08/05/2013 08/05/2012 Zoster Vaccines (1 of 2) 2022 Depression Monitoring 01/26/2025 07/28/2024 , 07/28/2024 COVID-19 Vaccine (3 - 2024-2 6 season) 2025 01/30/2021, 01/02/2021 Influenza Vaccine (#1) 2025 , 08/01/2019, 08/05/2012 SDOH Screening 07/19/2025 07/19/2024 Alcohol/Substance Use Screening 07/28/2025 07/28/2024 FOBT 08/22/2025 08/22/2024 Disability Screening 11/19/2025 11/19/2024 Tobacco Screening 11/20/2025 11/20/2024 Mammogram 09/13/2026 09/13/2024, [...] 08/14/2004, 03/25/2004, 02/05/2004 HIV Screening Completed 07/28/2024 HIB Vaccines Aged Out No longer eligi ble based on patient's age to complete this topic HPV Vaccines Aged Out No longer eligi ble based on patient's age to complete this topic IPV Vaccines Aged Out No longer eligi ble based on patient's age to complete this topic Meningococcal B Vaccine Aged Out No l onger eligible based on patient's age to complete [...] Procedure Name Priority Date/Time Associated Diagnosis Comments HEMATOXYLIN AND EOSIN STAIN Routine 05/11/2025 10:49 AM EDT HCG, QL, URINE Routine 05/11/2025 8:43 AM EDT CHLAMYDIA/N. GONORRHOEAE RNA, TMA, UROGENITAL Routine 04/26/2025 2:22 PM EDT HEMATOXYLIN AND EOSIN STAIN Routine 04/26/2025 2:50 AM EDT LH Routine 04/17/2025 1:02 PM EDT FSH Routine 04/17/2025 1:02 PM EDT US PELVIS TRANSVAGINAL Routine 5 2:39 PM EDT HPV DNA, LOW/HIGH RISK Routine 4 12:39 PM EST Cervical cancer screening PAP SMEAR Routine 10/02/2024 10:30 AM EST Cervical cancer screening BI MAMMOGRAM SCREENING TOMOSYNTHESIS BILATERAL Routine 09/13/2024 11:33 AM EST Encounter for screening mammogram for malignant neoplasm of breast LAB COLOGUARD COLON CANCER SCREEN Routine 08/22/2024 6:00 PM [...] Recently Relevant to Health Maintenance Results * Hematoxylin and Eosin Stain (05/11/2025 10:49 AM EDT) Only the most recent of2 resultswithin the time period is included. 05/11/2025 10:4 9 AM EDT 05/11/2025 11:12 AM EDT [facility] - 05/14/2025 1:31 PM EDT ----- ------- Name: CervantesMarla Age/Sex: 54/F : 1970 Unit#: [id number] Attend Dr: Rupert Beatty MD Re05/11/25 Status: [facility] Location: [facility] Disch: ----- ------- SPEC : [id number] RECD: 05/11/25 STATUS: DES RODRIGUEZ NUM: [id number] AISHA: 05/11/25-[address] [facility] [address]: Rueprt Beatty MD ENTERED: 05/11/25 SP TYPE: Surgical OTHR DR: Tonia Mary HEALTH CARE MARKETING SPECIALIST ORDERED: HE Stain/4, Gross Micro L4/2 Diagnosis A. Endometrial polyp, resection: Fragments of benign endometrial polyp with chronic endometritis and breakdown; no atypia or carcinoma. B. Endometrium, curettage: Benign endometrium with chronic endometritis and breakdown, and benign endocervical glandular and squamous epithelium; no atypia or carcinoma. Clinical History Pre-Op Dx: Abnormal findings on diagnostic imaging Post-Op Dx: Endometrial polyp Microscopic Description Microscopic sections reviewed. Material Received A. Endometrial polyp B. EMC Gross Description Received in 2 parts. A. Received in formalin, in a cloth filtration device, labeled endometrial polyp are fragments of rubbery, pink white and red-pink tissue forming an aggregate measuring 2.2 x 1.8 x 0.3 cm which is wrapped in lens paper and entirely submitted for microscopic examination, multiple pieces in cassette A. B. Received in formalin, on Telfa, labeled EMC are fragments of red-pink soft tissue mixed with mucus and clotted blood forming an aggregate measuring 2.6 x 1.8 x 0.3 cm which is wrapped in lens paper and entirely submitted for microscopic examination, multiple pieces in cassette B. ([facility]) IHC S/NG Disclaimer NOTE: Unless otherwise stated, all tissue is formalin-fixed and paraffin-embedded. Some or all of the immunohistochemical tests reported herein may have been developed and their performance characteristics determined by [facility]. They have not been cleared or approved by the U.S. Food and Drug Administration (FDA). However, the FDA has determined that such clearance or approval is not necessary. This laboratory is certified under the Clinical Laboratory Improvement Amendments of 1988 (CLIA) as qualified CONTINUED ON NEXT PAGE ----- ------- Name: Marla Cervantes Age/Sex: 54/F : 1970 Unit#: [id number] Attend Dr: Rupert Beatty MD Re05/11/25 Status: [facility] Location: [facility] Disch: ----- ------- SPEC : [id number] RECD: 05/11/25 STATUS: DES RODRIGUEZ NUM: [id number] AISHA: 05/11/25-[address] [facility] [address]: Rupert Beatty MD ENTERED: 05/11/25 SP TYPE: Surgical OTHR DR: Tonia Mary HEALTH CARE MARKETING SPECIALIST ORDERED: HE Stain/4, Gross Micro L4/2 IHC S/NG Disclaimer (Continued) to perform high complexity clinical laboratory testing. Copies To: Tonia Mary NP [address] [address] Rupert Beatty MD [facility] [address] [place] [address] [place] [address] [phone] ----- ------- Signed (signature on file) Juana Travis 05/14/25 1331 ----- ------- END OF REPORT Generic External Data Provider LAB BLOOD ORDERAB LES Final Result Performing Organization Address [facility] de Phone Number [facility] [address] [place] [phone] * HCG, Qualitative, Urine (05/11/2025 8:43 AM EDT) [facility] Urine NEGATIVE NEGATIVE [facility] Comment:This test was develo ped to detect early . Falsenegative results may occur after the 5th - 7th week ofpregnancy when using this test method. If clinicallyindicated, consider a serum hCG. 05/11/2025 8:43 AM EDT 05/11/2025 8:46 AM EDT [employer] External Data Provider LAB URINE ORDERAB LES Final Result Performing Organization Address [facility] de Phone Number [facility] [address] [place] [phone] * Chlamydia/N. Gonorrhoeae RNA, TMA, Urogenitial (04/26/2025 2:22 PM EDT) [facility] CT PCR NOT DETECTED Not Detect. [facility] Comment:A not detected test result does not exclude the possibilityof infection because test results can be affected byimproper specimen collection, concurrent antibiotic therapy,or the number of organisms in the specimen which may bebelow the sensitivity of the test. As with many diagnostictests, results from the Xpert CT/NG assay should beinterpreted in conjunction with other laboratory andclinical data available to the clinician.Xpert CT/NG performance has not been evaluated in patientsless than 14 years of age. The assay should not be used forthe evaluationof suspected sexual abuse or for other medico-legalindications. Additional testing is recommended in anycircumstance when false positive or false negative resultscould lead to adverse medical, social or psychologicalconsequences. NG PCR NOT DETECTED Not Detect. [facility] Comment:A not detected test result does not exclude the possibilityof infection because test results can be affected byimproper specimen collection, concurrent antibiotic therapy,or the number of organisms in the specimen which may bebelow the sensitivity of the test. As with many diagnostictests, results from the Xpert CT/NG assay should beinterpreted in conjunction with other laboratory andclinical data available to the clinician.Xpert CT/NG performance has not been evaluated in patientsless than 14 years of age. The assay should not be used forthe evaluationof suspected sexual abuse or for other medico-legalindications. Additional testing is recommended in anycircumstance when false positive or false negative resultscould lead to adverse medical, social or psychologicalconsequences. 04/26/2025 2:22 PM EDT 04/26/2025 4:37 PM EDT us Generic External Data Provider LAB MICROBIOLOGY - GENERAL ORDERABLES Final Result [facility] [address] [place] [phone] * LH (04/17/2025 1:02 PM EDT) Pathologist [facility] Lutenizing Hormone 18.7 mIU/mL [facility] Comment:Reference Range Foll icular Phase 1.9-12.5 Mid-Cycle Peak 8.7-76.3 Luteal Phase 0.5-16.9 Postmenopausal 10.0-54.7THIS TEST WAS PERFORMED AT:[facility] [place] [phone] MENDOZA MD 04/17/2025 1:02 PM EDT 04/17/2025 1:02 PM EDT us Generic External Data Provider LAB BLOOD ORDERAB LES Final Result Performing Organization Address [facility] Co de Phone Number [facility] [address] [place] [phone] * FSH (04/17/2025 1:02 PM EDT) Follicle Stimulating Hormone 24.9 mIU/mL [facility] Comment:Reference Range Foll icular Phase 2.5-10.2 Mid-cycle Peak 3.1-17.7 Luteal Phase 1.5- 9.1 Postmenopausal 23.0-116.3THIS TEST WAS PERFORMED AT:[facility] [place] [address] [phone] MENDOZA MD 04/17/2025 1:02 PM EDT 04/17/2025 1:02 PM EDT us Generic External Data Provider LAB BLOOD ORDERAB LES Final Result Performing Organization Address [facility] Co de Phone Number [facility] [address] [place] [address] [phone] * US Pelvis Transvaginal (04/12/2025 2:39 PM EDT) Anatomical Region Laterality Modality Pelvis Ultrasound 04/12/2025 2:39 PM EDT Narrative 04/12/2025 2:40 PM EDT [address] [address] Ultrasound Report Signed Patient: Marla Cervantes MR#: [id number] : 1970 Acct:[id number] Age/Sex: 54 / F ADM Date: 04/11/25 Loc: HO.US Attending Dr: Rupert Beatty MD Ordering Physician: Rupert Beatty MD Date of Service: 04/11/25 Procedure(s): US pelvic and transvaginal Accession Number(s): [id number] cc: Tonia Mary HEALTH CARE MARKETING SPECIALIST; Rupert Beatty MD CLINICAL HISTORY: D25.9 - Leiomyoma of uterus, unspecified Ultrasound of the female pelvis Comparison: US - US PELVIC AND TRANSVAGINAL - 10/10/24 16:05 EST Technique: Grayscale ultrasound with assistance of color Doppler. Transabdominal scanning performed for overall anatomy. Transvaginal scanning performed for better anatomic delineation. Findings: Anteverted uterus measures 7.2 x 4.0 x 5.5 cm, previously 8.5 x 3.9 x 4.9 cm. Heterogeneous myometrium, subserosal fibroid of the right posterior uterine fundus/body 2.4 x 2.4 x 2.3 cm, previously 2.3 x 1.9 x 2.2 cm. Unremarkable homogeneously hyperechoic endometrium, 7 mm in thickness. Nabothian cysts. Right ovary is not visualized, no right adnexal mass is seen. Normal left ovary, 2.4 x 1.7 x 1.4 cm. No abnormal vascular flow. No free fluid. Impression: 1. Mildly enlarged uterine fibroid. 2. Nonvisualization of right ovary. This document has been electronically signed by: Kelsey Montaño MD on 04/12/2025 14:39:36 Dictated By: Kelsey Montaño MD Signed By: <Electronically signed by Kelsey Montaño MD in OV> 04/12/25 1440 DD/ 1439 TD/TT: 04/12/25 1439 Ball Point Splitter: Procedure Note Donotuseinterpreter, Image - 04/12/[address] [address] Ultrasound Report Signed Patient: Adam Cervantes#: [id number] : 1970Acct:[id number] Age/Sex: 54 / FADM Date: 04/11/25 Loc: HO.US Attending Dr: Rupert Beatty MD Ordering Physician: Rupert Beatty MD Date of Service: 04/11/25 Procedure(s): US pelvic and transvaginal Accession Number(s): [id number] cc: Tonia Mary NP; Rupert Beatty MD CLINICAL HISTORY: D25.9 - Leiomyoma of uterus, unspecified Ultrasound of the female pelvis Comparison: US - US PELVIC AND TRANSVAGINAL - 10/10/24 16:05 EST Technique: Grayscale ultrasound with assistance of color Doppler. Transabdominal scanning performed for overall anatomy. Transvaginal scanning performed for better anatomic delineation. Findings: Anteverted uterus measures 7.2 x 4.0 x 5.5 cm, previously 8.5 x 3.9 x 4.9 cm. Heterogeneous myometrium, subserosal fibroid of the right posterior uterine fundus/body 2.4 x 2.4 x 2.3 cm, previously 2.3 x 1.9 x 2.2 cm. Unremarkable homogeneously hyperechoic endometrium, 7 mm in thickness. Nabothian cysts. Right ovary is not visualized, no right adnexal mass is seen. Normal left ovary, 2.4 x 1.7 x 1.4 cm. No abnormal vascular flow. No free fluid. Impression: 1. Mildly enlarged uterine fibroid. 2. Nonvisualization of right ovary. This document has been electronically signed by: Kelsey Montaño MD on 04/12/2025 14:39:36 Dictated By: Kelsey Montaño MD Signed By: <Electronically signed by Kelsey Montaño MD in OV> 04/12/25 1440 DD/ 1439 TD/TT: 04/12/25 1439 Ball Point Splitter: [facility] External Provider IMG US PROCEDURES Edited Result - Final * HPV High Risk with Reflex to Subtypes (10/02/2024 12:39 PM EST) Pap Vial 10/02/2024 12:3 9 PM EST Tonia Mary NP LAB BLOOD ORDERABLES Final Resul t [facility] [address] [place] [phone] * Pap Smear (10/02/2024 10:30 AM EST) Swab 10/02/2024 10:3 0 AM EST 10/03/2024 10:10 AM EST Narrative [facility] - 10/09/2024 10:30 AM EST ----- ------- Name: Marla Cervantes Age/Sex: 53/F : 1970 Unit#: [id number] Attend Dr: Tonia Mary HEALTH CARE MARKETING SPECIALIST Re10/02/24 Status: DEP REF Location: [facility] Disch: ----- ------- SPEC : [id number] RECD: 10/03/24 STATUS: DES RODRIGUEZ NUM: [id number] AISHA: 10/02/[address]: Tonia Mary HEALTH CARE MARKETING SPECIALIST ENTERED: 10/03/24 SP TYPE: Pap Brennon BEASLEY : ORDERED: Pap Smear Interpretation Satisfactory for evaluation. Negative for intraepithelial lesion or malignancy. Scant cellularity. HPV High Risk: Negative HPV Genotyping 16: Negative HPV Genotyping 18: Negative Clinical Information LMP: Mirena, and no bleeding for years Previous PAP test: Unknown date, WNL Other surgery: IUD Other history: Uncertain if menopausal Material Received ThinPrep-Cervical ----- ------- Signed (signature on file) Rosamaria Hancock CT (ASCP) 10/09/24 1030 ----- ------- END OF REPORT us Tonia Mary HEALTH CARE MARKETING SPECIALIST LAB CYTOLOGY ORDERABLES Final Re sult [facility] [address] [place] [address] [phone] * BI Mammogram Screening Tomosynthesis Bilateral (09/13/2024 11:33 AM EST) Anatomical Region Laterality Modality Breast Bilateral Mammography 09/13/2024 11:3 3 AM EST Narrative 09/19/2024 3:10 PM EST [facility] [address] [place] [address] [place] [address] Mammography Report Signed Patient: Marla Cervantes MR#: [id number] : 1970 Acct:[id number] Age/Sex: 53 / F ADM Date: 09/13/24 Loc: MARGARITA Attending Dr: Tonia Mary HEALTH CARE MARKETING SPECIALIST Ordering Physician: Tonia Mary NP Results: 1Negati ve Date of Service: 09/13/24 Follow Up: 1 Year From Orig inal Mammogram Procedure(s): MM tomosynthesis screening BI Accession Number(s): [id number] cc: Tonia Mary HEALTH CARE MARKETING SPECIALIST EXAMINATION: MM SCREENING DIGITAL BREAST TOMOSYNTHESIS, BILATERAL [...] by: Deb Fitzgerald DO 09/19/2024 03:07 PM [facility] Dictated By: Deb Fitzgerald DO Signed By: <Electronically signed by Deb Fitzgerald DO in OV> 09/19/24 1507 DD/ 1133 TD/TT: 09/13/24 1150 Ball Point Splitter: Procedure Note Donotuseinterpreter, Image - 09/19/2024 [facility] [address] Maya, [place] [address] Mammography Report Signed Patient: Marla Cervantes#: [id number] : 1970Acct:[id number] Age/Sex: 53 / FADM Date: 09/13/24 Loc: HO.MAMMO Attending Dr: Tonia Mary HEALTH CARE MARKETING SPECIALIST Ordering Physician: Tonia Mary NPResults: 1Negati ve Date of Service: 09/13/24Follow Up: 1 Year From Orig inal Mammogram Procedure(s): MM tomosynthesis screening BI Accession Number(s): [id number] cc: Tonia Mary HEALTH CARE MARKETING SPECIALIST EXAMINATION: MM SCREENING DIGITAL BREAST TOMOSYNTHESIS, BILATERAL [...] by: Deb Fitzgerald DO 09/19/2024 03:07 PM EST Dictated By: Deb Fitzgerald DO Signed By: <Electronically signed by Deb Fitzgerald DO in OV> 09/19/24 1507 DD/ 1133 TD/TT: 09/13/24 1150 Ball Point Splitter: Tonia Mary NP IMG BI PROCEDURES Final Result * (ABNORMAL) Cologuard?? colon cancer screening (08/22/2024 6:00 PM EST) Cologuard Result Positive( A) Negative 08/29/2024 5:47 PM EST [facility] (CLIA #:[id number]) Comment: POSITIVE TEST RESULT. A positive Cologuard result should be followed with a colonoscopy or visual examination of the colon. The normal value (reference range) for this assay is negative. TEST DESCRIPTION: Composite algorithmic analysis of stool DNA-biomarkers with hemoglobin immunoassay. Quantitative values of individual biomarkers are not [...] (Kathy Ramsey al, N Engl J Med 2014;370(14):7954-6497.) Cologuard may produce a false negative or false positive result (no colorectal cancer or precancerous polyp present at colonoscopy follow up). A negative Cologuard test result does not guarantee the absence of CRC or advanced adenoma (pre-cancer). The current Cologuard screening interval is every 3 years. ([place] [employer] Society and U.S. Multi-Society Task Force). Cologuard performance data in a 10,000 patient pivotal study using colonoscopy as the reference method can be accessed at the following location: www.MyFrontSteps/results. Additional description of the Cologuard test process, warnings and precautions can be found at [email or web address]. Stool specimen (specimen) 08/22/2024 6:00 PM EST 08/24/2024 10:59 AM EST Tonia Mary NP LAB MOLECULAR DIAGNOSTICS ORDERA BLES Final Result [facility] (CLIA #:[id number]) [place] [address], * HIV-1/2 Antigen and Antibodies, Fourth Generation, with Reflexes (07/28/2024 4:35 PM EDT) HIV AB/AG Nonreactive Nonreactive [facility] Comment:HIV-1 p24 Ag and/or HIV-1/HIV-2 Ab not detected.A test result that is nonreactive does not exclude thepossibility of exposure to or infection with HIV-1 and/orHIV-2. Nonreactive results in this assay for individualswith prior exposure to HIV-1 and/or HIV-2 may be due toantigen and antibody levels that are below the limit ofdetection of this assay.The [employer] HIV Ag/Ab Combo assay result andsupplemental assay results should be interpreted inconjunction with the patient's clinical presentation,history and other laboratory results. If the results areinconsistent with clinical evidence, additional testing issuggested to confirm the result. Blood Venous blood specimen / Unknown 07/28/2024 4:35 PM EDT 07/28/2024 5:24 PM EDT us Tonia Mary NP LAB BLOOD ORDERABLES Final Resul t [facility] [address] [place] [phone] * (ABNORMAL) Lipid Panel, Standard (07/28/2024 4:35 PM EDT) Triglycerides 100 <150 mg/dL [facility] Comment:Desirable Triglyceri de: less than 150 mg/dLBorderline High Triglyceride 150-199 mg/dLHigh Triglyceride: 200-499 mg/dLVery High Triglyceride: greater than or equal to 5OO mg/dL Cholesterol 188 <200 mg/dL [facility] Comment:Desirable Cholestero l: less than 200 mg/dLBorderline High Cholesterol: 200-239 mg/dLHigh Cholesterol: greater than 239 mg/dL LDL Cholesterol Calculated 112(H) <100 mg/dL [facility] Comment:Desirable LDL: less than 100 mg/dLNear Optimal/Above Optimal LDL: 110- 129 mg/dLBorderline High LDL: 130-159 mg/dLHigh LDL: 160-189 mg/dLVery High LDL: greater than or equal to 190 mg/dL HDL Cholesterol 56 >40 mg/dL [facility] Comment:Desirable HDL: great er than 40 mg/dL Note: This HDL assay may give artificially low results in patients with liver disease. Blood Venous blood specimen / Unknown 07/28/2024 4:35 PM EDT 07/28/2024 5:24 PM EDT Tonia Mary NP LAB BLOOD ORDERABLES Final Resul t [facility] [address] [place] [phone] [phone] from Last 3 Months or Most Recently Relevant to Health Maintenance Insurance [facility] C3 HSN PARTIAL Care Teams Greenhouse Florist Relationship Specialty Start Date End Date Tonia Mary NP [address] [place] [phone] PCP - General Family Medicine 07/28/24
--- OUTSIDE RECORDS SUMMARY | 2025-06-20 16:41 | XMS_ITS | Encounter Summary ---
Author Organization [employer] Address [address] [place] [address] [address] [place] [address] Care Team Providers Care Ios Software Engineer Name Role Phone Tonia Mary BRENDAN Primary Care Provider [phone] Reason for Visit * Reason Onset Date Comments New Patient 10/19/2023 Encounter Details Date Type Department Care Team (Late st Contact Info) Description 10/19/[address] [facility] [address] [place], [place] [phone] Arun Lemus MD [address] [place], [place] [phone] New Patient Social History Tobacco Use Types [...] Description 07/02/2025 1:45 PM EDT Office Visit [facility] [address] [place] [address] [phone] Amber Tsai FNP [address] [place] [phone] documented as of this encounter Visit Diagnoses Not on filedocumented in this encounter Care Teams Ios Software Engineer Relationship Specialty Start Date End Date Tonia Mary NP [address] [place] [address] PCP - General Family Medicine 07/28/24 documented as of this encounter
--- NOTE | 2025-06-22 10:12 | HO.ANESPROP2 ---
Documented by User: Karen Ely NP 06/22/25 10:12 HPI - Anesthesia Eval Consult details Narrative: 54yo F for Colonoscopy s/p D&C 05/2025 with GA-LMA 4 PMFSH Active Problems Active Problems: All Active Problems Encounter for insertion of ParaGard IUD (Acute) Thickened endometrium (Acute) Family planning (Acute) Nicotine dependence (Acute) Positive colorectal cancer screening using Cologuard test (Acute) Uterine myoma (Acute) Malpositioned IUD (Acute) Past Medical History Medical History Nicotine dependence Positive colorectal cancer screening using Cologuard test ASCUS of cervix with negative high risk HPV Family History Family History Mother Diabetes HTN (hypertension) Heart disease Father Heart disease Family history of problems with anesthesia: No Surgical History Surgical History History of cholecystectomy Hx of gastric bypass History of Problems with Anesthesia: No Social History Social History Household Members: Spouse Housing: Apartment Alcohol intake: current Alcohol intake frequency: holidays/special occasions only Patient Tobacco Use Status: Current everyday Tobacco user Tobacco use type: Cigarette Cigarettes Per Day: 3 Years Smoked: 15 Advance Directives: No Advance Directives Information Provided: Yes Meds Allergies Allergy/AdvReac Type Severity Reaction Status Date / Time No Known Allergies Allergy Verified 06/25/25 10:38 Home Medications ?Medication ?Instructions ?Recorded ?Confirmed ?Last Taken ?Type acetaminophen 650 mg 650 mg PO Q8H PRN mild pain 02/15/25 06/25/25 Unknown History tablet,extended release diclofenac sodium 1 % topical gel 1 ea topical TID PRN other 02/15/25 06/25/25 Unknown History Assessment and Plan Assessment Anesthesia Assessment: Chart Reviewed Final Anesthetic Review Family History of Problems with Anesthesia: No History of Problems with Anesthesia: No Documented by User: Jean Jaimes MD 06/25/25 10:52 PMFSH Past Medical History Medical History Nicotine dependence Positive colorectal cancer screening using Cologuard test ASCUS of cervix with negative high risk HPV Cognitive capacity: good Functional capacity: independent ambulation Family History Family History Mother Diabetes HTN (hypertension) Heart disease Father Heart disease Surgical History Surgical History History of cholecystectomy Hx of gastric bypass Social History Social History Household Members: Spouse Housing: Apartment Alcohol intake: current Alcohol intake frequency: holidays/special occasions only Patient Tobacco Use Status: Current everyday Tobacco user Tobacco use type: Cigarette Cigarettes Per Day: 3 Years Smoked: 15 Advance Directives: No Advance Directives Information Provided: Yes Meds Allergies Allergy/AdvReac Type Severity Reaction Status Date / Time No Known Allergies Allergy Verified 06/25/25 10:38 Home Medications ?Medication ?Instructions ?Recorded ?Confirmed ?Last Taken ?Type acetaminophen 650 mg 650 mg PO Q8H PRN mild pain 02/15/25 06/25/25 Unknown History tablet,extended release diclofenac sodium 1 % topical gel 1 ea topical TID PRN other 02/15/25 06/25/25 Unknown History Exam Exam Date and Time: 06/25/2025 Narrative Narrative: normal Airway Mallampati Class: II TM Dist: >3cm Neck ROM: Full Loose/Missing/Broken Teeth: No Heart: rrr Lungs: cta Other: normal Assessment and Plan Final Anesthetic Review NPO: Yes ASA Class: II Final Preanesthetic Review: No Changes in Pt Med Stat, Consent Obtained/Reviewed and Anes Risks/Benef Reviewed Patient Risk: Low Procedure Risk: Low Assessment/Block/Sedation in SS: Assess/Block/Sedation-SS Anesthetic Plan Anesthetic Plan: MAC: Disposition: Standard PACU
--- NOTE | 2025-06-25 10:35 | MHC.SHP ---
Pre-Procedural Eval Section A - 24 Hr Update-Section A only Date of Service: 06/25/25 Section B - Complete if H&P > 30 days Chief Complaint: Positive Cologuard test Relevant Family History (Specify if Yes): No Relevant Social History: Tobacco Use Present Medications: see Short Stay Collaborative assessment Medical History: Significant History (Nicotine dependence Positive colorectal cancer screening using Cologuard test ASCUS of cervix with negative high risk HPV) History of Previous Operations: Relevant previous surgery/procedure and date(s) (History of cholecystectomy Hx of gastric bypass) Allergies: Allergies Allergy/AdvReac Type Severity Reaction Status Date / Time No Known Allergies Allergy Verified 05/11/25 08:42 Review of Systems Sugical H&P ROS: Negative: Constitution, Cardiovascular, Respiratory and Gastrointestinal Exam Surgical H&P Exam: Normal: Heart, Normal: Lungs, Normal: Extremities and Normal: Abdomen Plan Diagnosis/Plan: Unchanged I have reviewed the history and physical and performed a pertinent physical examination on my patient. No changes have occurred unless specified. Time Spent With Patient Time: Total time managing care of this patient today ____ minutes.
[2025-06-25 10:39] VITALS: BMI 40.3
[2025-06-25 10:52] VITALS: BP 141/104; PULSE 99; RESP 15; TEMP 36.5; O2SAT 96
[2025-06-25] MEDS: Lactated Ringers 1,000 ML 100 ML IVCONT (10:53)
--- NOTE | 2025-06-25 11:57 | P.OPN-COLO_ITS ---
Colonoscopy Operative Note Operative Note Date of Service: 06/25/25 Narrative: COLONOSCOPY TILL CECUM WITH SNARE POLYPECTOMY AND HEMOCLIP PLACEMENT Pre-op diagnosis: Positive Cologuard test. Post-op diagnosis:? Colon polyp, Diverticulosis. Endoscopist:? Kristi Fuentes MD Anesthesia:?MAC Consent: Indications for the procedure and potential complications of bleeding, perforation, reaction to medications and missed diagnosis were discussed with the patient and informed consent was obtained. Instrument: Olympus PCF H 190 L variable stiffness pediatric colonoscope Monitoring: Vital signs and clinical assessment, intermittent blood pressure monitoring, continuous EKG monitoring, Pulse oximetry and Carbon Dioxide monitoring were done throughout the procedure. Please see anesthesia flowsheet. Colon withdrawl time was 30 minutes. Procedure: The patient was placed in the left lateral decubitis position and pre-procedure medications were administered. After a digital rectal examination of the ano-rectum, the video colonoscope was inserted into the rectum and advanced through the colon to the cecum. The colonoscope was slowly withdrawn in a retrograde panoramic fashion and the colon mucosa was carefully examined including a retroflexed view of the rectum. Findings and interventions are described below. Procedure Difficulty: without difficulty Findings: Terminal Ileum: Not evaluated Cecum: Normal Ascending Colon: A 3-4 mm sessile polyp in the proximal AC - removed with a cold snare. Transverse Colon: Three 8 - 12 mm sessile polyps - removed with a hot snare Descending Colon: Moderate diverticulosis Sigmoid Colon: A 10-12 mm sessile polyp at 40 cms - removed with a hot snare. A 2 cms pedunculated polyp at 20 cms - removed with a hot snare. Polypectomy site was closed with 1 hemoclip and marked by Mia ink. Moderate diverticulosis Rectum: Normal Ano-rectum: Normal Colon preparation: Good after some irrigation. [place] Bowel Preparation Scale Right colon; 2 Transverse colon: 2 Left colon; 2 (0 = Unprepared colon segment with mucosa not seen due to solid stool that canno t be cleared. 1 = Portion of mucosa of the colon segment seen, but other areas of the colon segment not well seen due to staining, residual stool and/or opaque liquid. 2 = Minor amount of residual staining, small fragments of stool and/or opaque liquid, but mucosa of colon segment seen well. 3 = Entire mucosa of colon segment seen well with no residual staining, small fragments of stool or opaque liquid) Impression and Post Procedure Diagnosis: Colonoscopy Findings: Six small to medium sized polyps were removed Moderate diverticulosis seen in the left colon Plan: Pt has a FU appointment on 07/26/25 with Charleen Kamara NP Repeat Colonoscopy in 3-5 years if polyps are adenomatous and 10 year if polyps are hyperplastic. Above findings were reviewed with the patient and relevant handouts were given and the discharge area. BIOPSIES SHOWED: A. Colon, cecal polyp: Tubular adenoma; negative for high-grade dysplasia and carcinoma. B. Colon, transverse, polyps: Tubular adenoma (1 piece); negative for high-grade dysplasia and carcinoma, and hyperplastic polyp (1 piece). C. Colon, at 40 cm, polyp: Tubular adenoma; negative for high-grade dysplasia and carcinoma. D. Colon, sigmoid, polyp: Traditional serrated adenoma with features of prolapse (completely excised); negative for high-grade dysplasia and carcinoma Letter sent to the patient biopsy results. Patient was placed on the colonoscopy recall list for repeat colonoscopy in 3 years.
[2025-06-25 12:02] VITALS: BP 116/65; PULSE 65; RESP 18; TEMP 36.3; O2SAT 98
[2025-06-25 12:17] VITALS: BP 131/89; PULSE 78; RESP 18; TEMP 36.3; O2SAT 96
== END 2025-06-25 12:43 | disposition home or self-care (01) ==
PROVIDERS: PCP Nurse Practitioner Family; Visit Provider Internal Medicine Gastroenterology
PROC: 0DJD8ZZ Inspection of Lower Intestinal Tract, Via Natural or Artificial Opening Endoscopic (ICD-10-PCS; CPT 45378; principal; 2025-06-25 12:00)
DX: R19.5 Other fecal abnormalities (principal); D12.0 Benign neoplasm of cecum; D12.3 Benign neoplasm of transverse colon; D12.5 Benign neoplasm of sigmoid colon; K57.30 Diverticulosis of large intestine without perforation or abscess without bleeding; E66.9 Obesity, unspecified; Z68.41 Body mass index [BMI] 40.0-44.9, adult; F17.210 Nicotine dependence, cigarettes, uncomplicated
CPT/HCPCS: 45385; 45381; 88305; J2003; J2704; J3010

== ENCOUNTER → 2025-06-25 10:25 | Outpatient (BNV) | payer MEDICAID, SELFPAY | PROVIDERS: PCP Nurse Practitioner Family; Visit Provider Internal Medicine Gastroenterology | DX: Z12.11 Encounter for screening for malignant neoplasm of colon (principal); R19.5 Other fecal abnormalities; D12.2 Benign neoplasm of ascending colon; D12.3 Benign neoplasm of transverse colon; D12.5 Benign neoplasm of sigmoid colon | CPT/HCPCS: 45381; 45385 ==

== ENCOUNTER 2025-06-28 08:35 | Outpatient (REF) | payer MEDICAID, SELFPAY ==
--- OUTSIDE RECORDS SUMMARY | 2025-06-28 09:49 | XMS_ITS | Encounter Summary ---
Author Organization [facility] Address [address] [place] [address] [address] [place] [address] Care Team Providers Care Fruit Sorter Name Role Phone Tonia Mary BRENDAN Primary Care Provider [phone] Reason for Visit * Reason Onset Date Comments New Patient 10/19/2023 Encounter Details Date Type Department Care Team (Late st Contact Info) Description 10/19/2023 Telephone [facility] [address] [place], [place] [phone] Arun Lemus MD [address], [place] [phone] New Patient Social History Tobacco Use Types [...] 10/19/2023 5:17 PM EST PT is on [facility] List as of 10/15/2023 documented in this encounter Plan of Treatment Upcoming Encounters Date Type Department Care Team (Late st Contact Info) Description 07/02/2025 1:45 PM EDT Office Visit [facility] [address] [place] [address] [phone] Amber Tsai FNP [address] [place] [address] documented as of this encounter Visit Diagnoses Not on filedocumented in this encounter Care Teams Fruit Sorter Relationship Specialty Start Date End Date Tonia Mary NP [address] [place] [address] PCP - General Family Medicine 07/28/24 documented as of this encounter
--- OUTSIDE RECORDS SUMMARY | 2025-06-28 09:49 | XMS_ITS | Clinical Summary ---
Author Organization [employer] Address [address] [place] [address] 7[address] [place] [address] Care Team Providers Care Resource Coordinator Name Role Phone Tonia Mary BRENDAN Primary Care Provider [phone] Allergies No known active allergies Medications Diclofenac Sodium (Voltaren) 1 % gelIndications: Hand arthritis Apply 1 Application topically if needed in the morning, at noon, in the evening, and at bedtime (pain). 40 g 1 Active Active Problems Problem Noted Date Diagnosed Date Malpositioned intrauterine device 12/17/2024 Assessment & Plan (12/17/2024 8:30 PM EDT): Referral to RIVETING MACHINE OPERATOR, pt to update if has not head [...] Encounters Date Type Department Care Team Description 06/25/2025 Orders Only GENERIC EXTERNAL DATA DEPARTMENT Provider, Generic External Data 06/25/2025 Patient Outreach [facility] [address] [place] [address] Tonia Mary NP Pre-visit Planning ([facility] unable to reach, disconnected) 06/25/2025 Travel 06/08/2025 Telephone [facility] [address] [place], [place] [phone] Tonia Mary NP Lab Orders (Pt requesting [...] Description 07/02/2025 1:45 PM EDT Office Visit [facility] [address] [place], [place] [phone] Amber Tsai FNP [address] [place], [place] [phone] Health Maintenance Due Date Last Done Comments [...] Diagnosis Comments HEMATOXYLIN AND EOSIN STAIN Routine 06/25/2025 11:26 AM EDT HEMATOXYLIN AND EOSIN STAIN Routine 05/11/2025 10:49 AM EDT HCG, QL, URINE Routine 05/11/2025 8:43 AM EDT CHLAMYDIA/N. GONORRHOEAE RNA, TMA, UROGENITAL Routine 04/26/2025 2:22 PM EDT HEMATOXYLIN AND EOSIN STAIN Routine 04/26/2025 2:50 AM EDT LH Routine 04/17/2025 1:02 PM EDT FSH Routine 04/17/2025 1:02 PM EDT US PELVIS TRANSVAGINAL Routine 2:39 PM EDT HPV DNA, LOW/HIGH RISK Routine 12:39 PM [...] Maintenance Results * Hematoxylin and Eosin Stain (06/25/2025 11:26 AM EDT) Only the most recent of3 resultswithin the time period is included. 06/25/2025 11:2 6 AM EDT 06/25/2025 1:28 PM EDT [facility] - 06/26/2025 4:36 PM EDT ----- ------- Name: Marla Cervantes Age/Sex: 54/F : 1970 [id number]#: [id number] Attend Dr: Kristi Fuentes MD Re06/25/25 [address]: [facility] Location: [facility] Disch: ----- ------- SPEC : [id number] RECD: 06/25/25-1328 STATUS: DES FORDEClarisa NUM: [id number] AISHA: 06/25/25-1126 [facility] DR: Kristi Fuentes MD ENTERED: 06/25/25-133 SP TYPE: Surgical OTHR DR: Tonia Mary FURNITURE ASSOCIATE ORDERED: HE Stain/12, Gross Micro L4/4 Diagnosis A. Colon, cecal polyp: Tubular adenoma; negative for high-grade dysplasia and carcinoma. B. Colon, transverse, polyps: Tubular adenoma (1 piece); negative for high-grade dysplasia and carcinoma, and hyperplastic polyp (1 piece). C. Colon, at 40 cm, polyp: Tubular adenoma; negative for high-grade dysplasia and carcinoma. D. Colon, sigmoid, polyp: Traditional serrated adenoma with features of prolapse (completely excised); negative for high-grade dysplasia and carcinoma. Clinical History Pre-Op Dx: Positive Cologuard test Post-Op Dx: Colon polyps, diverticulosis, hemorrhoids Microscopic Description Microscopic sections reviewed. Material Received A. Cecal polyp B. Transverse colon polyps C. Colon polyp at 40 cm D. Sigmoid colon polyp Gross Description Received in four parts. Part A: Received in formalin labeled cecal polyp along with scant mucus is a 0.3 cm pearson irregular tissue fragment, submitted in toto in a cassette labeled A. Part B: Received in formalin labeled transverse colon polyps are four pearson-pink irregular and papular tissue fragments ranging from 0.2-0.3 cm in greatest dimension, submitted in toto in a cassette labeled B. Part C: Received in formalin labeled colon polyp at 40 cm are two pearson-pink papular and rectangular tissue fragments measuring 0.45 and 0.6 cm, submitted in toto in a cassette labeled C. CONTINUED ON NEXT PAGE ----- ------- Name: Marla Cervantes Age/Sex: 54/F : 1970 Unit#: [id number] Attend Dr: Kristi Fuentes MD Re06/25/25 Status: [facility] Location: [facility] Disch: ----- ------- SPEC : [id number] RECD: 06/25/25 STATUS: DES RODRIGUEZ NUM: [id number] AISHA: 06/25/25-1125 [facility] DR: Kristi Fuentes MD ENTERED: 06/25/25 SP TYPE: Surgical OTHR DR: Tonia Mary FURNITURE ASSOCIATE ORDERED: HE /, Gross Micro L4/4 Gross Description (Continued) Part D: Received in formalin labeled sigmoid colon polyp is a 0.9 x 0.8 x 0.45 cm velvety, pearson-pink pedunculated polyp with an attached 0.6 cm in diameter and 0.45 cm in length pearson-pink stalk. The resected base is inked and the specimen is sectioned and entirely submitted in a cassette labeled D. CEDS IHC S/NG Disclaimer NOTE: Unless otherwise stated, all tissue is formalin-fixed and paraffin-embedded. Some or all of the immunohistochemical tests reported herein may have been developed and their performance characteristics determined by [facility]. They have not been cleared or approved by the U.S. Food and Drug Administration (FDA). However, the FDA has determined that such clearance or approval is not necessary. This laboratory is certified under the Clinical Laboratory Improvement Amendments of 1988 (CLIA) as qualified to perform high complexity clinical laboratory testing. Copies To: Tonia Mary NP [address] [id number] Kristi Fuentes MD [facility] [address] [place] [address] [phone] ----- ------- Signed (signature on file) Juana Estero 06/26/25 1636 ----- ------- END OF REPORT us Generic External Data Provider LAB BLOOD ORDERAB LES Final Result [facility] [address] [place] [address] [phone] * HCG, Qualitative, Urine (05/11/2025 8:43 AM EDT) [facility] Urine NEGATIVE NEGATIVE [facility] Comment:This test was develo ped to detect early . Falsenegative results may occur after the 5th - 7th week ofpregnancy when using this test method. If clinicallyindicated, consider a serum hCG. 05/11/2025 8:43 AM EDT 05/11/2025 8:46 AM EDT us Generic External Data Provider LAB URINE ORDERAB LES Final Result [facility] [address] [place] [phone] * Chlamydia/N. Gonorrhoeae RNA, TMA, Urogenitial (04/26/2025 2:22 PM EDT) [facility] CT PCR NOT DETECTED Not Detect. [facility] Comment:A not detected test result [...] psychologicalconsequences. NG PCR NOT DETECTED Not Detect. [facility] Comment:A not detected test result [...] 2:22 PM EDT 04/26/2025 4:37 PM EDT Generic External Data Provider LAB MICROBIOLOGY - GENERAL ORDERABLES Final Result Performing Organization Address [facility] de Phone Number [facility] [address] [place] [phone] * LH (04/17/2025 1:02 PM EDT) Lutenizing Hormone 18.7 mIU/mL [facility] Comment:Reference Range Foll icular Phase 1.9-12.5 Mid-Cycle Peak 8.7-76.3 Luteal Phase 0.5-16.9 Postmenopausal 10.0-54.7THIS TEST WAS PERFORMED AT:[facility] [address] [phone] MENDOZA MD 04/17/2025 1:02 PM EDT 04/17/2025 1:02 PM EDT Generic External Data Provider LAB BLOOD ORDERAB LES Final Result Performing Organization Address [facility] Co de Phone Number [facility] [address] [place] [phone] * FSH (04/17/2025 1:02 PM EDT) Follicle Stimulating Hormone 24.9 mIU/mL [facility] Comment:Reference Range Foll icular Phase 2.5-10.2 Mid-cycle Peak 3.1-17.7 Luteal Phase 1.5- 9.1 Postmenopausal 23.0-116.3THIS TEST WAS PERFORMED AT:[employer] [place] [phone] MENDOZA MD 04/17/2025 1:02 PM EDT 04/17/2025 1:02 PM EDT us Generic External Data Provider LAB BLOOD ORDERAB LES Final Result [facility] [address] [place] [phone] * US Pelvis Transvaginal (04/12/2025 2:39 PM EDT) Anatomical Region Laterality Modality Pelvis Ultrasound 04/12/2025 2:39 PM EDT Narrative 04/12/2025 2:40 PM EDT [address] [address] Ultrasound Report Signed Patient: Marla Cervantes MR#: [id number] : 1970 Acct:[id number] Age/Sex: 54 / F ADM Date: 04/11/25 Loc: HO.US Attending Dr: Rupert Beatty MD Ordering Physician: Rupert Beatty MD Date of Service: 04/11/25 Procedure(s): US pelvic and transvaginal Accession Number(s): [id number] cc: Tonia Mary FURNITURE ASSOCIATE; Rupert Beatty MD CLINICAL HISTORY: D25.9 - [...] 04/12/25 1440 DD/ 1439 TD/TT: 04/12/25 1439 Weigher Bulker: Procedure Note Donotuseinterpreter, Image - 04/12/2025 [place] [address] Ultrasound Report Signed Patient: Adam Cervantes#: [id number] : 1970Acct:[id number] Age/Sex: 54 / FADM Date: 04/11/25 Loc: HO.US Attending Dr: Rupert Beatty MD Ordering Physician: Rupert Beatty MD Date of Service: 04/11/25 Procedure(s): US pelvic and transvaginal Accession Number(s): [id number] cc: Tonia Mary FURNITURE ASSOCIATE; Rupert Beatty MD CLINICAL HISTORY: D25.9 - [...] 04/12/25 1440 DD/ 1439 TD/TT: 04/12/25 1439 Weigher Bulker: us [facility] External Provider IMG US PROCEDURES Edited Result - Final * HPV High Risk with Reflex to Subtypes (10/02/2024 12:39 PM EST) Pap Vial 10/02/2024 12:3 9 PM EST Tonia Mary NP LAB BLOOD ORDERABLES Final Resul t Performing Organization Address City/State/[facility] Co de Phone Number [facility] [address] [place] [phone] * Pap Smear (10/02/2024 10:30 AM EST) Swab 10/02/2024 10:3 0 AM EST 10/03/2024 10:10 AM EST Narrative [facility] - 10/09/2024 10:30 AM EST ----- ------- Name: Marla Cervantes Age/Sex: 53/F : 1970 Unit#: [id number] Attend Dr: Tonia Mary NP Re10/02/24 Status: DEP REF Location: HO.[facility]CL Disch: ----- ------- SPEC : [id number] RECD: 10/03/24 STATUS: DES RODRIGUEZ NUM: [id number] AISHA: 10/02/24 [facility] DR: Tonia Mary NP ENTERED: 10/03/24 SP TYPE: Pap Smr OT DR: ORDERED: Pap Smear Interpretation Satisfactory for evaluation. Negative for intraepithelial lesion or malignancy. Scant cellularity. HPV High Risk: Negative HPV Genotyping 16: Negative HPV Genotyping 18: Negative Clinical Information LMP: Mirena, and no bleeding for years Previous PAP test: Unknown date, WNL Other surgery: IUD Other history: Uncertain if menopausal Material Received ThinPrep-Cervical ----- ------- Signed (signature on file) DEREK Vargas (ASCP) 10/09/24 1030 ----- ------- END OF REPORT us Tonia Mary FURNITURE ASSOCIATE LAB CYTOLOGY ORDERABLES Final Re sult [facility] Organization Address City/State/ZIP Co de Phone Number [facility] [address] [place] [address] [phone] * BI Mammogram Screening Tomosynthesis Bilateral (09/13/2024 11:33 AM EST) Anatomical Region Laterality Modality Breast Bilateral Mammography 09/13/2024 11:3 3 AM EST Narrative 09/19/2024 3:10 PM EST [address] [place] [address] Mammography Report Signed Patient: Marla Cervantes MR#: [id number] : 1970 Acct:[id number] Age/Sex: 53 / F ADM Date: 09/13/24 Loc: HO.MAMMO Attending Dr: Tonia Mary FURNITURE ASSOCIATE Ordering Physician: Tonia Mary NP Results: 1Negati ve Date of Service: 09/13/24 Follow Up: 1 Year From Orig inal Mammogram Procedure(s): MM tomosynthesis screening BI Accession Number(s): [id number] cc: Tonia Mary FURNITURE ASSOCIATE EXAMINATION: MM SCREENING DIGITAL BREAST TOMOSYNTHESIS, BILATERAL [...] 09/19/24 1507 DD/ 1133 TD/TT: 09/13/24 1150 Weigher Bulker: Procedure Note Donotuseinterpreter, Image - 09/19/2024 [facility] [address] [place] [address] Mammography Report Signed Patient: Marla CervantesMR#: [id number] : 1970Acct:[id number] Age/Sex: 53 / FADM Date: 09/13/24 Loc: HO.MAMMO Attending Dr: Tonia Mary FURNITURE ASSOCIATE Ordering Physician: Tonia Mary NPResults: 1Negati ve Date of Service: 09/13/24Follow Up: 1 Year From Orig inal Mammogram Procedure(s): MM tomosynthesis screening BI Accession Number(s): [id number] cc: Tonia Mary FURNITURE ASSOCIATE EXAMINATION: MM SCREENING DIGITAL BREAST TOMOSYNTHESIS, BILATERAL [...] by: Deb Fitzgerald DO 09/19/2024 03:07 PM [facility] Dictated By: Deb Fitzgerald DO Signed By: <Electronically signed by Deb Fitzgerald DO in OV> 09/19/24 1507 DD/ 1133 TD/TT: 09/13/24 1150 Weigher Bulker: us Tonia Mary NP IMG BI PROCEDURES Final Result * (ABNORMAL) Cologuard?? colon cancer screening (08/22/2024 6:00 PM EST) Cologuard Result Positive( A) Negative 08/29/2024 5:47 PM EST [employer] (CLIA #:[id number]) Comment: POSITIVE TEST RESULT. A positive Cologuard [...] (Kathy Ramsey al, N Engl J Med 2014;370(14):0676-9904.) Cologuard may produce a false negative or false positive result (no colorectal cancer or precancerous polyp present at colonoscopy follow up). A negative Cologuard test result does not guarantee the absence of CRC or advanced adenoma (pre-cancer). The current Cologuard screening interval is every 3 years. ([place] [employer] Society and U.S. Multi-Society Task Force). Cologuard performance data in a 10,000 patient pivotal study using colonoscopy as the reference method can be accessed at the following location: www.exactlabs.com/results. Additional description of the Cologuard test process, warnings and precautions can be found at www.cologInHirord.com. Stool specimen (specimen) 08/22/2024 6:00 PM EST 08/24/2024 10:59 AM EST Tonia Mary NP LAB MOLECULAR DIAGNOSTICS ORDERA BLES Final Result Performing Organization Address City/[facility]/ZIP Co de Phone Number [employer] (CLIA #:[id number]) [place] [address], [place] [phone] * HIV-1/2 Antigen and Antibodies, Fourth Generation, with Reflexes (07/28/2024 4:35 PM EDT) [facility] HIV AB/AG Nonreactive Nonreactive [facility] Comment:HIV-1 p24 Ag and/or HIV-1/HIV-2 Ab not detected.A test result that is nonreactive does not exclude thepossibility of exposure to or infection with HIV-1 and/orHIV-2. Nonreactive results in this assay for individualswith prior exposure to HIV-1 and/or HIV-2 may be due toantigen and antibody levels that are below the limit ofdetection of this assay.The [employer] HIV Ag/Ab Combo assay result andsupplemental assay results should be interpreted inconjunction with the patient's clinical presentation,history and other laboratory results. If the results areinconsistent with clinical evidence, additional testing issuggested to confirm the result. Blood Venous blood specimen / Unknown 07/28/2024 4:35 PM EDT 07/28/2024 5:24 PM EDT Tonia Mary NP LAB BLOOD ORDERABLES Final Resul t Performing Organization Address City/[facility]/ZIP Co de Phone Number [facility] [address] [place] [phone] * (ABNORMAL) Lipid Panel, Standard (07/28/2024 4:35 PM EDT) [facility] Triglycerides 100 <150 mg/dL [facility] Comment:Desirable Triglyceri de: less than 150 mg/dLBorderline High Triglyceride 150-199 mg/dLHigh Triglyceride: 200-499 mg/dLVery High Triglyceride: greater than or equal to 5OO mg/dL Cholesterol 188 <200 mg/dL [facility] Comment:Desirable Cholestero l: less than 200 mg/dLBorderline High Cholesterol: 200-239 mg/dLHigh Cholesterol: greater than 239 mg/dL LDL Cholesterol Calculated 112(H) <100 mg/dL [facility] Comment:Desirable LDL: less than 100 mg/dLNear Optimal/Above Optimal LDL: 110- 129 mg/dLBorderline High LDL: 130-159 mg/dLHigh LDL: 160-189 mg/dLVery High LDL: greater than or equal to 190 mg/dL HDL Cholesterol 56 >40 mg/dL [facility] Comment:Desirable HDL: great er than 40 mg/dL Note: This HDL assay may give artificially low results in patients with liver disease. Blood Venous blood specimen / Unknown 07/28/2024 4:35 PM EDT 07/28/2024 5:24 PM EDT Tonia Mary NP LAB BLOOD ORDERABLES Final Resul t [facility] [address] [place] [address] [phone] from Last 3 Months or Most Recently Relevant to Health Maintenance Insurance [facility] C3 Care Teams Resource Coordinator Relationship Specialty Start Date End Date Tonia Mary NP [address] [place] [phone] PCP - General Family Medicine 07/28/24
--- OUTSIDE RECORDS SUMMARY | 2025-06-28 09:49 | XMS_ITS | Patient Health Record ---
Author Organization [facility] Address [address] [place] [address] Care Team Providers Care Sponge Clipper Name Role Phone Segundo Ribera Unavailable [phone] Reason For Referral No Information Plan Of Treatment No Information
--- OUTSIDE RECORDS SUMMARY | 2025-06-28 09:49 | XMS_ITS | Encounter Summary ---
Author Organization [employer] Address [address] [place] [address] [address]t [place] [address] Care Team Providers Care Plant Operations Manager Name Role Phone Tonia Mary BRENDAN Primary Care Provider [phone] Encounter Details Date Type Department Care Team (Latest Contact Info) Description 06/25/2025 Travel Social History Tobacco Use Types Packs/Day Years Used Date Smoking Tobacco: Every Day Cigarettes Passive Smoke Exposure: Current Smokeless Tobacco: Never Alcohol Answer Date Recorded How often do [...] AM EDT documented as of this encounter Plan of Treatment Upcoming Encounters Date Type Department Care Team (Late st Contact Info) Description 07/02/2025 1:45 PM EDT Office Visit [facility] MEDICINE [address] [place], [place] [phone] Amber Tsai FNP [address] [place] [address] documented as of this encounter Visit Diagnoses Not on filedocumented in this encounter Additional Health Concerns Assessment Noted Time PHQ-9 Depression Total Score: 15 024 3:01 PM EDT documented as of this encounter Care Teams Plant Operations Manager Relationship Specialty Start Date End Date Tonia Mary NP [address] [place] [address] PCP - General Family Medicine 07/28/24 documented as of this encounter
--- OUTSIDE RECORDS SUMMARY | 2025-06-28 09:49 | XMS_ITS | Encounter Summary ---
Author Organization [employer] Address [address] [place] [address] 7t [place] [address] Care Team Providers Care Fun House Attendant Name Role Phone MeseretTonia kramer BRENDAN Primary Care Provider [phone] Encounter Details Date Type Department Care Team (Late st Contact Info) Description 06/25/2025 Orders Only GENERIC EXTERNAL DATA DEPARTMENT Provider, Generic External Data Social History Tobacco Use Types Packs/Day Years [...] Description 07/02/2025 1:45 PM EDT Office Visit [facility] MEDICINE [address] [place], [place] [phone] Amber Tsai FNP [address] [place] [address] documented as of this encounter Procedures Procedure Name Priority Date/Time Associated Diagnosis Comments HEMATOXYLIN AND EOSIN STAIN Routine 06/25/2025 11:26 AM EDT documented in this encounter Results * Hematoxylin and Eosin Stain (06/25/2025 11:26 AM EDT) 06/25/2025 11:2 6 AM EDT 06/25/2025 1:28 PM EDT [facility] - 06/26/2025 4:36 PM EDT ----- ------- Name: Marla Cervantes Age/Sex: 54/F : 1970 Unit#: [id number] Attend Dr: Kristi Fuentes MD Re06/25/25 Status: [facility] Location: [facility] Disch: ----- ------- SPEC : [id number] RECD: 06/25/25-1328 STATUS: DES RODRIGUEZ NUM: [id number] AISHA: 06/25/25-[address] [facility] [address]: Kristi Fuentes MD ENTERED: 06/25/25-1335 SP TYPE: Surgical OTHR DR: Tonia Mary INTERNET RESEARCHER ORDERED: HE Stain/12, Gross Micro L4/4 Diagnosis [...] Marla Cervantes Age/Sex: 54/F : 1970 Unit#: [id number] Attend Dr: Kristi Fuentes MD Re06/25/25 Status: [facility] Location: [facility] Disch: ----- ------- SPEC : [id number] RECD: 06/25/25-1327 STATUS: JUAN MANUELAlvaro RODRIGUEZ NUM: [id number] AISHA: 06/25/25-[address] [facility] [address]: Kristi Fuentes MD ENTERED: 06/25/254293 SP TYPE: Surgical OTHR DR: Tonia Mary INTERNET RESEARCHER ORDERED: HE Stain/12, Gross Micro L4/4 Gross Description (Continued) Part [...] developed and their performance characteristics determined by [facility]. They have not been cleared or approved by the U.S. Food and Drug Administration (FDA). However, the FDA has determined that such clearance or approval is not necessary. This laboratory is certified under the Clinical Laboratory Improvement Amendments of 1988 (CLIA) as qualified to perform high complexity clinical laboratory testing. Copies To: Tonia Mary NP [address] [address] Kristi Fuentes MD [facility] [address] [place] [phone] ----- ------- Signed (signature on file) Juana Forsyth 06/26/25 1636 ----- ------- END OF REPORT us Generic External Data Provider LAB BLOOD ORDERAB LES Final Result [facility] [address] [place] [address] [phone] documented in this encounter Visit Diagnoses Not on filedocumented in this encounter Additional Health Concerns Assessment Noted Time PHQ-9 Depression Total Score: 15 07/28/ 024 3:01 PM EDT documented as of this encounter Care Teams Fun House Attendant Relationship Specialty Start Date End Date Tonia Mary NP [address] [place] [address] PCP - General Family Medicine 07/28/24 documented as of this encounter
--- OUTSIDE RECORDS SUMMARY | 2025-06-28 09:49 | XMS_ITS | Encounter Summary ---
Author Organization [employer] Address [address] [facility] [address] [place] [address] Care Team Providers Care Playground Equipment Erector Name Role Phone Tonia Mary NP Primary Care Provider [phone] Reason for Visit * Reason Comments Pre-visit Planning SDOH unable to reach , disconnected Encounter Details Date Type Department Care Team ([facility] st Contact Info) Description 06/25/2025 Patient Outreach [facility] [address] [place], [place] [phone] Tonia Mary, BRENDAN [address] [place] [address] Pre-visit Planning (SDOH unable to reach, disconnected) Social History Tobacco Use Types Packs/Day Years [...] AM EDT documented as of this encounter Progress Notes * Cary Ovalle - 06/25/2025 3:13 PM EDT CC Cary Hartmann placed outbound call to patient to complete pre-visit planning. No answer at this time. Patient name and were not confirmed. CC unable to leave a message due to number not in service documented in this encounter Plan of Treatment Upcoming Encounters Date Type Department Care Team (Late st Contact Info) Description 07/02/2025 1:45 PM EDT Office Visit [facility] MEDICINE [address] [place] [address] Amber Tsai FNP [address] [place] [address] documented as of this encounter Visit Diagnoses Not on filedocumented in this encounter Additional Health Concerns Assessment Noted Time PHQ-9 Depression Total Score: 15 024 3:01 PM EDT documented as of this encounter Care Teams Playground Equipment Erector Relationship Specialty Start Date End Date Tonia Mary NP [address] [place] [address] PCP - General Family Medicine 07/28/24 documented as of this encounter
[2025-07-03 03:08] LABS: TS Negative Control Passed; TS Panel A 0; TS Panel B 0; TS Positive Control Passed; TSpotTB Negative (Negative)
== END 2025-06-28 08:36 | disposition home or self-care (01) ==
LOC: HO.HHCL 08:35
PROVIDERS: PCP Nurse Practitioner Family; Visit Provider Nurse Practitioner Family
DX: Z11.1 Encounter for screening for respiratory tuberculosis (principal)
CPT/HCPCS: 36415; 86481

== ENCOUNTER 2025-07-26 13:14 | Outpatient (AMB) | payer MEDICAID, SELFPAY ==
--- NOTE | 2025-07-26 13:18 | MHC.OFFVIS ---
Vital Signs 07/26/25 13:19 Height 5 ft 4 in Weight 237 lb 10.533 oz BMI 40.8 BP 142/66 H Blood Pressure Location Lt brachial Position Sitting Pulse 90 Intake Visit Reasons: s/p colo osiris Intake Note: Marla presents to in office follow up s/p colonoscopy. CC: Patient reports doing well and denies having any GI symptoms or concerns today. Glass Installer Technician Required: No Accompanied by: Self / Same As Patient Allergies No Known Allergies Allergy (Verified 07/26/25 13:24) HPI HPI s/p colo osiris: Details: Patient is a 54-year-old female with PMH of obesity and nicotine dependence. F/u post-colonoscopy for polyps and diverticulosis; to discuss results. Since last visit, pt underwent colonoscopy for positive cologuard and routine screening. Reports regular, daily BMs, no blood, pain, or change in frequency/character, and no new GI sx. No fever, N/V, or constitutional sx. New/re-emergent symptom of mild GERD occurring ~1x/week, primarily after trigger foods (greasy/meals), relieved with Tums. No persistent dysphagia, odynophagia, or weight loss. No issues with prior recommendations or bowel regimen. No hospitalizations, UC/ED visits, or flares. [facility] Medical History (Updated 07/26/25 @ 13:39 by Charleen Kamara CNP) Mild acid reflux Tubular adenoma of colon Nicotine dependence Positive colorectal cancer screening using Cologuard test ASCUS of cervix with negative high risk HPV Surgical History H/O colonoscopy History of cholecystectomy Hx of gastric bypass Family History Mother Diabetes HTN (hypertension) Heart disease Father Heart disease Social History Household Members: Spouse Housing: Apartment Alcohol intake: current Alcohol intake frequency: holidays/special occasions only Patient Tobacco Use Status: Current everyday Tobacco user Tobacco use type: Cigarette Cigarettes Per Day: 3 Years Smoked: 15 Review of Systems Const Reports as per HPI ENT Reports as per HPI Card Reports as per HPI Resp Reports as per HPI GI Reports as per HPI Reports as per HPI Physical Exam Vital Signs: Last Vital Signs Pulse 90 07/26/25 13:19 BP 142/66 H 07/26/25 13:19 BMI result Body Mass Index 40.8 Const General: healthy appearing, no acute distress and well developed Nutritional Appearance: average body habitus Orientation/consciousness: patient oriented x3 HEENT Head: Yes normal to inspection, Yes normocephalic and Yes atraumatic Face and sinus: Yes normal facial exam Eyes General: appearance normal, both eyes and all related structures Neck Neck: Yes normal visual inspection Resp Effort & Inspection: normal respiratory effort, able to speak in complete sentences, no tracheal deviation and symmetric chest movement Cardio Jugular venous distension: no JVD Neuro General: patient oriented x3 Gait exam (Neuro): Normal gait present Psych Appearance: grossly normal Mental Status: mental status grossly normal Speech and movement: Normal speech and movement present Affect: normal affect Attitude: cooperative Thought process: Normal thought process present Thought content: Normal thought content present Insight: Good insight present (Psych) Judgement: Good judgement present (Psych) Results Reviewed Results Reviewed: Operative Note Date of Service: 06/25/25 Narrative: COLONOSCOPY TILL CECUM WITH SNARE POLYPECTOMY AND HEMOCLIP PLACEMENT Pre-op diagnosis: Positive Cologuard test. Post-op diagnosis:? Colon polyp, Diverticulosis. Endoscopist:? Kristi Fuentes MD Procedure: The patient was placed in the left lateral decubitis position and pre-procedure medications were administered. After a digital rectal examination of the ano-rectum, the video colonoscope was inserted into the rectum and advanced through the colon to the cecum. The colonoscope was slowly withdrawn in a retrograde panoramic fashion and the colon mucosa was carefully examined including a retroflexed view of the rectum. Findings and interventions are described below. Procedure Difficulty: without difficulty Findings: Terminal Ileum: Not evaluated Cecum: Normal Ascending Colon: A 3-4 mm sessile polyp in the proximal AC - removed with a cold snare. Transverse Colon: Three 8 - 12 mm sessile polyps - removed with a hot snare Descending Colon: Moderate diverticulosis Sigmoid Colon: A 10-12 mm sessile polyp at 40 cms - removed with a hot snare. A 2 cms pedunculated polyp at 20 cms - removed with a hot snare. Polypectomy site was closed with 1 hemoclip and marked by Mia ink. Moderate diverticulosis Rectum: Normal Ano-rectum: Normal Colon preparation: Good after some irrigation. [place] Bowel Preparation Scale Right colon; 2 Transverse colon: 2 Left colon; 2 Impression and Post Procedure Diagnosis: Colonoscopy Findings: Six small to medium sized polyps were removed Moderate diverticulosis seen in the left colon Plan: Pt has a FU appointment on 07/26/25 with Charleen Kamara, VOCATIONAL REHAB CONSULTANT Repeat Colonoscopy in 3-5 years if polyps are adenomatous and 10 year if polyps are hyperplastic. Above findings were reviewed with the patient and relevant handouts were given and the discharge area. PATHOLOGY: Collected: 06/25/25 Location: .[facility] Received: 06/25/25 Diagnosis A. Colon, cecal polyp: Tubular adenoma; negative for high-grade dysplasia and carcinoma. B. Colon, transverse, polyps: Tubular adenoma (1 piece); negative for high-grade dysplasia and carcinoma, and hyperplastic polyp (1 piece). C. Colon, at 40 cm, polyp: Tubular adenoma; negative for high-grade dysplasia and carcinoma. D. Colon, sigmoid, polyp: Traditional serrated adenoma with features of prolapse (completely excised); negative for high-grade dysplasia and carcinoma. Clinical History Pre-Op Dx: Positive Cologuard test Post-Op Dx: Colon polyps, diverticulosis, hemorrhoid Assessment & Plan Assessment & Plan (1) Tubular adenoma of colon: Comment: 06/25/25 colonoscopy complete with Good prep after some irrigation- TA to cecum, 3-4 mm ascending AND Three 8 - 12 mm transverse ; > 10mm serrated adenoma (sigmoid). Diverticulosis, hemorrhoids. Recommendation for repeat in 3 years (2027) Code(s): D12.6 - Benign neoplasm of colon, unspecified Category: Medical Plan: Stable, s/p complete polypectomy, no sx. - High-risk polyp features (size >10mm, pre-cancerous) necessitate 3yr (2027) interval colonoscopy for surveillance. Additional testing: - None at this time. Medications: - None specific for polyps/diverticulosis. Lifestyle Recommendations: - Reinforce high-fiber/well balanced diet, maintain regular BMs to prevent diverticulitis; avoid constipation. Pt previously educated. - Encouraged to set personal reminder for 2027 surveillance colonoscopy. Referrals / Coordination of Care: - Colonoscopy scheduled for 2027?reminder placed. Follow-Up Plan: - Routine f/u with GI in 3yrs, or sooner if sx. Seek care for new onset abdo pain, fever, rectal bleeding. (2) Mild acid reflux: Code(s): K21.9 - Gastro-esophageal reflux disease without esophagitis Category: Medical Plan: Mild, intermittent, ~1x/week, triggered by greasy/large meals; relieved by Tums, no alarm features. Weekly occurrence warrants further evaluation to rule out structural pathology; trial of Rx antacid for sx control. Additional testing: - Upper GI series ordered (to evaluate for mucosal changes, hernia, other structural causes); upper endoscopy deferred unless warranted by imaging or worsening sx. Medications: - Famotidine (Pepcid) PRN; instructions provided. Tums may be continued if effective. Review efficacy at f/u. Lifestyle Recommendations: - Police Detention Attendant on dietary modification (avoid trigger foods, reduce meal size, hydration, remain upright postprandial). - Pt advised not to overeat and to avoid lying down after meals. - Educational handouts verbalized; further handouts can be provided as needed. Referrals / Coordination of Care: - None at present; GI to coordinate further based on imaging or if upper endoscopy indicated. Follow-Up Plan: - GI clinic in 6mo or sooner for sx reassessment and review of upper GI series. Pt instructed to report increased freq/severity or alarm sx (dysphagia, weight loss, persistent vomiting, bleeding). Plan Follow-up 6 months or sooner as needed Time: I spent a total of 20 minutes on the date of encounter which includes: Preparing to see the patient (reviewed previous documentation, test results and medical history) Performing a medically appropriate exam and/or evaluation Ordering medications, tests, and procedures Documenting clinical information in the health record Orders: Orders FL upper GI small bowel Today K21.9 - Gastro-esophageal reflux disease without esophagitis Medications: New famotidine Take one tablet daily at bedtime as needed 20 mg PO DAILY PRN 90 tabs 1RF GERD Coding Level of Care Code Established Pt Est Pt Level 3 (79721) Patient Type Established Diagnoses Tubular adenoma of colon D12.6 Mild acid reflux K21.9
[2025-07-26 13:19] VITALS: BP 142/66; PULSE 90; BMI 40.8
--- OUTSIDE RECORDS SUMMARY | 2025-07-26 16:36 | XMS_ITS | Patient Health Record ---
Author Organization [facility] Address [address] [place] [address] Care Team Providers Care Theatre Arts Professor Name Role Phone Segundo Ribera Unavailable [phone] Reason For Referral No Information Plan Of Treatment No Information
--- OUTSIDE RECORDS SUMMARY | 2025-07-26 16:36 | XMS_ITS | Encounter Summary ---
Author Organization [facility] [employer] Address [address] [place] [address] [address] [place] [address] Care Team Providers Care Circulation Director Name Role Phone Tonia Mary NP Primary Care Provider [phone] Reason for Visit * Reason Onset Date Comments New Patient 10/19/2023 Encounter Details Date Type Department Care Team ([facility] st Contact Info) Description 10/19/2023 Telephone [facility] MEDICINE [address] [place], [place] [id number] Arun Lemus MD [address] [place] [address] New Patient Social History Tobacco Use Types [...] 10/19/2023 5:17 PM EST PT is on [facility] List as of 10/15/2023 documented in this encounter Plan of Treatment Not on file documented as of this encounter Visit Diagnoses Not on filedocumented in this encounter Care Teams Circulation Director Relationship Specialty Start Date End Date Tonia Mary NP [address] [place] [address] PCP - General Family Medicine 07/28/24 documented as of this encounter
--- OUTSIDE RECORDS SUMMARY | 2025-07-26 16:36 | XMS_ITS | Clinical Summary ---
Author Organization [employer] Address [address] [facility] [address] [place] [address] Care Team Providers Care Button Sewer Name Role Phone Tonia Mary BRENDAN Primary Care Provider [phone] Allergies No known active allergies Medications Diclofenac Sodium (Voltaren) 1 % gelIndications: Hand arthritis Apply 1 Application topically if needed in the morning, at noon, in the evening, and at bedtime (pain). 40 g 1 4 Active FLUoxetine (PROzac) 10 MG tablet Take 1 tablet (10 mg) by mouth Once per day. 90 tablet 5 09/30/20 25 Active Active Problems Problem Noted Date Diagnosed Date Insomnia secondary to anxiety 07/03/2025 Malpositioned intrauterine device 12/17/2024 Assessment & Plan (12/17/2024 8:30 PM EDT): Referral to [facility], pt to update if has not head to schedule Viral upper respiratory tract infection 12/18/19 25 Assessment & Plan (12/17/2024 8:30 PM EDT): [...] 3:20 PM EDT): Encouraged daily movement Class 3 severe obesity with body mass index (BMI) of 40.0 to 44.9 in adult 08/10/2024 Assessment & Plan (10/02/2024 [...] Diagnosed Date Resolved Date Chronic hepatitis C (CMS/HCC) 11/11/2015 10/02/2024 Encounters Date Type Department Care Team Description 07/10/2025 9:30 AM EDT Clinical Support [facility] [address] [place] [phone] Agatha Hill, RN Encounter for immunization; Elevated blood pressure reading [R03.0] 07/10/2025 Travel 07/03/2025 Travel 07/02/2025 1:45 PM EDT Office Visit [facility] [address] [place] [phone] Amber Tsai FNP Well adult on routine health check (Primary Dx); Class 3 severe obesity with body mass index (BMI) of 40.0 to 44.9 in adult, unspecified obesity type, unspecified whether serious comorbidity present; Dietary counseling; Exercise counseling; Anxiety; Insomnia secondary to anxiety 07/02/2025 Travel 06/29/2025 Telephone [facility] [address] [place] [address] Amber Tsai FNP Chart Prep 06/25/2025 Orders Only GENERIC EXTERNAL DATA DEPARTMENT Provider, Generic External Data 06/25/2025 Patient Outreach [facility] [address] [place] [address] Tonia Mary, BRENDAN Pre-visit Planning ([facility] unable to reach, disconnected) 06/25/2025 Travel 06/08/2025 Telephone [facility] [address] [place] [address] Tonia Mary NP Lab Orders (Pt requesting [...] seasonal, injecta ble, preservative free 07/28/2024 Pneumococcal Conjugate PCV 20 07/10/2025 Pneumococcal Polysaccharide PPSV23 08/05/2012 Tdap 07/28/2024,08/05/2012 Family [...] Answer Date Recorded Patient Health Questionnaire-9 Score 0 07/02/2025 Patient Health Questionnaire-9 Score 0 07/02/2025 Last PHQ-9: Questionnaire Data Not on file 0 07/02/2025 Housing Stability Answer Date Recorded What is [...] Answer Date Recorded Patient Health Questionnaire-2 Score 0 07/02/2025 Internet Access Answer Date Recorded Internet Access Q1 No 07/02/2025 Internet Access Q2 I do not want or need it 06/12 Comments No Intention Date Recorded No desire to become (finding) 0 07/02/2025 Sex and Gender Information Value Date Recorded Sex Assigned at Female 08/10/2022 10:16 AM EDT Legal Sex Female 10:16 AM EDT Gender Identity Female 07/28/2024 2:48 PM EDT Sexual Orientation Straight 08/10/2022 10 :16 AM EDT Last Filed Vital Signs Vital Sign Reading Time Taken Comments Blood Pressure 138/86 07/10/2025 9:29 AM EDT Pulse 84 07/10/2025 9:28 AM EDT Temperature 36.9 C (98.4 F) 07/10/2025 9:28 AM EDT Respiratory Rate 18 07/10/2025 9:28 AM EDT Oxygen Saturation 95% 07/10/2025 9:28 AM EDT Inhaled Oxygen Concentration - - Weight 108 kg (238 lb) 07/10/2025 9:28 AM EDT Height 162.6 cm (5' 4 ) 07/10/2025 9:28 AM EDT Body Mass Index 40.85 07/10/2025 9:28 AM EDT Plan of Treatment Health Maintenance Due Date Last Done Comments CT Colonography 1970 Colonoscopy 1970 FIT 1970 Sigmoidoscopy 1970 COVID-19 Vaccine (3 - 2024-2 6 season) 2025 01/30/2021, 01/02/2021 Influenza Vaccine (#1) 2025 , 08/01/2019, 08/05/2012 FOBT 08/22/2025 08/22/2024 Disability Screening 11/19/2025 11/19/2024 Alcohol/Substance Use Screening 07/02/2026 07/02/2025 Depression Screening 07/02/2026 07/02/2025, 07/02/2025 SDOH Screening 07/02/2026 07/02/2025 Tobacco Screening 07/02/2026 07/02/2025 Family Planning (PISQ) 07/03/2026 07/03/2025 Zoster Vaccines (1 of 2) 07/03/2026 Pos tponed from 2022 (Patient Refused) Mammogram 09/13/2026 09/13/2024, 08/25/2019 Colorectal Cancer Screening [...] 08/14/2004, 03/25/2004, 02/05/2004 HIV Screening Completed 07/28/2024 Pneumococcal Vaccine: 50+ Years Completed 07/10/2025, 08/05/2012 HIB Vaccines Aged Out No longer [...] Procedure Name Priority Date/Time Associated Diagnosis Comments T-SPOT(R).TB Routine 06/28/2025 8:55 AM EDT Screening for tuberculosis HEMATOXYLIN AND EOSIN STAIN Routine 06/25/2025 11:26 AM EDT HEMATOXYLIN AND EOSIN STAIN Routine 05/11/2025 10:49 AM EDT HCG, QL, URINE Routine 05/11/2025 8:43 AM EDT CHLAMYDIA/N. GONORRHOEAE RNA, TMA, UROGENITAL Routine 04/26/2025 2:22 PM EDT HEMATOXYLIN AND EOSIN STAIN Routine 04/26/2025 2:50 AM EDT HPV DNA, LOW/HIGH RISK Routine 10/02/2024 12:39 PM EST Cervical cancer screening PAP [...] Recently Relevant to Health Maintenance Results * T-SPOT??.TB (06/28/2025 8:55 AM EDT) T Spot TB Negative Negative [facility] Comment:A negative test resu lt does not exclude the possibilityof exposure to or infection with Mycobacteriumtuberculosis (M. tuberculosis). Patients with recentexposure to TB infected individuals exhibiting anegative T-SPOT.TB result should be considered forretesting within 6 weeks or if other relevant clinicalsymptoms indicate. Results from T-SPOT.TB testing mustbe used in conjunction with each individual'sepidemiological history, current medical status,and results of other diagnostic evaluations.The T-SPOT.TB test is qualitative and results arereported as positive, borderline, or negative, giventhat the test controls perform as expected. In linewith the Centers for Disease Control and Prevention's2010 recommendation to report quantitative measurementsalongside the qualitative result, the laboratoryprovides spot counts for informational purposes only.The T-SPOT.TB test should not be interpreted as aquantitative test. TS PANEL A 0 [facility] TS PANEL B 0 [facility] Negative Control Passed [facility] Positive Control Passed [facility] Comment:For additional infor david, please refer tohttp://education.[employer]/faq/JCY497(This link is being provided for informational/educational purposes only.)THIS TEST WAS PERFORMED AT:[employer] [id number] [place] [address]YNEATEDURIEL SOLOMON MD,PHD 06/28/2025 8:55 AM EDT 06/28/2025 11:44 AM EDT us Tonia Mary NP LAB BLOOD ORDERABLES Final Resul t [facility] [address] [place] [address] [phone] * Hematoxylin and Eosin Stain (06/25/2025 11:26 AM EDT) Only the most recent of3 resultswithin the time period is included. 06/25/2025 11:2 6 AM EDT 06/25/2025 1:28 PM EDT Brittany [facility] - 06/26/2025 4:36 PM EDT ----- ------- Name: Marla Cervantes Age/Sex: 54/F : 1970 Unit#: [id number] Attend Dr: Kristi Feuntes MD Re06/25/25 Status: [facility] Location: [facility] Disch: ----- ------- SPEC : [id number] RECD: 06/25/25-1327 STATUS: DES RODRIGUEZ NUM: [id number] AISHA: 06/25/25-1125 [facility] [address]: Kristi Fuentes MD ENTERED: 06/25/253888 SP TYPE: Surgical OTHR DR: Tonia Mary PROGRAM DIRECTOR AIR TALENT ORDERED: HE Stain/12, Gross Micro L4/4 Diagnosis [...] Name: Marla Cervantes Age/Sex: 54/F [facility] 1970 [id number]#: [id number] Attend Dr: Kristi Fuentes MD Re06/25/25 Status: [facility] Location: [facility] Disch: ----- ------- SPEC : [id number] RECD: 06/25/25 STATUS: DES RODRIGUEZ NUM: [id number] AISHA: 06/25/25 [facility] [address]: Kristi Fuentes MD ENTERED: 06/25/25 SP TYPE: Surgical OTHR DR: Tonia Mary PROGRAM DIRECTOR AIR TALENT ORDERED: HE Stain/12, Gross Micro L4/4 Gross [...] developed and their performance characteristics determined by [facility]. They have not been cleared or approved by the U.S. Food and Drug Administration (FDA). However, the FDA has determined that such clearance or approval is not necessary. This laboratory is certified under the Clinical Laboratory Improvement Amendments of 1988 (CLIA) as qualified to perform high complexity clinical laboratory testing. Copies To: Tonia Mary NP [address] [address] Kristi Fuentes MD [facility] [address] [place] [id number] ----- ------- Signed (signature on file) Juana Travis 06/26/25 1636 ----- ------- END OF REPORT Generic External Data Provider LAB BLOOD ORDERAB LES Final Result Performing Organization Address [facility] Co de Phone Number [facility] [address] [place] [phone] * HCG, Qualitative, Urine (05/11/2025 8:43 AM EDT) [facility] Urine NEGATIVE NEGATIVE [facility] Comment:This test was develo ped to detect early . Falsenegative results may occur after the 5th - 7th week ofpregnancy when using this test method. If clinicallyindicated, consider a serum hCG. 05/11/2025 8:43 AM EDT 05/11/2025 8:46 AM EDT Nekted External Data Provider LAB URINE ORDERAB LES Final Result Performing Organization Address [facility] de Phone Number [facility] [address] [place] [phone] * Chlamydia/N. Gonorrhoeae RNA, TMA, Urogenitial (04/26/2025 2:22 PM EDT) [facility] CT PCR NOT DETECTED Not Detect. [facility] Comment:A not detected test result does [...] psychologicalconsequences. NG PCR NOT DETECTED Not Detect. [facility] Comment:A not detected test result does [...] GENERAL ORDERABLES Final Result Performing Organization Address [facility] Co de Phone Number [facility] [address] [place] [phone] * HPV High Risk with Reflex to Subtypes (10/02/2024 12:39 PM EST) Pap Vial 10/02/2024 12:3 9 PM EST us Tonia Mary PROGRAM DIRECTOR AIR TALENT LAB BLOOD ORDERABLES Final Resul t Performing Organization Address [facility] Co de Phone Number [facility] [address] [place] [phone] * Pap Smear (10/02/2024 10:30 AM EST) Swab 10/02/2024 10:3 0 AM EST 10/03/2024 10:10 AM EST Narrative [facility] - 10/09/2024 10:30 AM EST ----- ------- Name: Marla Cervantes Age/Sex: 53/F : 1970 Unit#: [id number] Attend Dr: Tonia Mary PROGRAM DIRECTOR AIR TALENT Re10/02/24 Status: [facility] Location: [facility] Disch: ----- ------- SPEC : [id number] RECD: 10/03/24-1010 STATUS: DES RODRIGUEZ NUM: [id number] AISHA: 10/02/24-[address] [facility] [address]: Tonia Mary PROGRAM DIRECTOR AIR TALENT ENTERED: 10/03/24-1021 SP TYPE: Pap Smr JUAN M DR: ORDERED: Pap Smear Interpretation Satisfactory for evaluation. Negative for intraepithelial lesion or malignancy. Scant cellularity. HPV High Risk: Negative HPV Genotyping 16: Negative HPV Genotyping 18: Negative Clinical Information LMP: Mirena, and no bleeding for years Previous PAP test: Unknown date, WNL Other surgery: IUD Other history: Uncertain if menopausal Material Received ThinPrep-Cervical ----- ------- Signed (signature on file) Rosamaria Karissa CT ([facility]) 10/09/24 1030 ----- ------- END OF REPORT us Tonia Mary NP LAB CYTOLOGY ORDERABLES Final Re sult [facility] [address] [place] [phone] * BI Mammogram Screening Tomosynthesis Bilateral (09/13/2024 11:33 AM EST) Anatomical Region Laterality Modality Breast Bilateral Mammography 09/13/2024 11:3 3 AM EST Narrative 09/19/2024 3:10 PM EST [facility] [address] [place] [address] Mammography Report Signed Patient: Marla Cervantes MR#: [id number] : 1970 Acct:[id number] Age/Sex: 53 / F ADM Date: 09/13/24 Loc: .MAMMO Attending Dr: Tonia Mary PROGRAM DIRECTOR AIR TALENT Ordering Physician: Tonia Mary PROGRAM DIRECTOR AIR TALENT Results: 1Negati ve Date of Service: 09/13/24 Follow Up: 1 Year From Orig ina Mammogram Procedure(s): MM tomosynthesis screening BI Accession Number(s): [id number] cc: Tonia Mary PROGRAM DIRECTOR AIR TALENT EXAMINATION: MM SCREENING DIGITAL BREAST TOMOSYNTHESIS, BILATERAL [...] 09/19/2024 03:07 PM EST Dictated By: Deb Ftizgerald DO Signed By: <Electronically signed by Deb Fitzgerald DO in OV> 09/19/24 1507 DD/ 1133 TD/TT: 09/13/24 [address] Maintainer: Procedure Note Donotuseinterpreter, Image - 09/19/2024 [facility] [address] [place] [address] Mammography Report Signed Patient: Adam Cervantes#: [id number] : 1970Acct:[id number] Age/Sex: 53 / FADM Date: 09/13/24 Loc: HO.MAMMO Attending Dr: Tonia Mary NP Ordering Physician: Tonia Mary NPResults: 1Negati ve Date of Service: 09/13/24Follow Up: 1 Year From Orig inal Mammogram Procedure(s): MM tomosynthesis screening BI Accession Number(s): [id number] cc: Tonia Mary PROGRAM DIRECTOR AIR TALENT EXAMINATION: MM SCREENING DIGITAL BREAST TOMOSYNTHESIS, BILATERAL [...] 09/19/24 1507 DD/ 1133 TD/TT: 09/13/24 [address] Maintainer: Tonia Mary NP IM BI PROCEDURES Final Result * (ABNORMAL) Cologuard?? colon cancer screening (08/22/2024 6:00 PM EST) Cologuard Result Positive( A) Negative 08/29/2024 5:47 PM EST [facility] (CLIA #:[id number]) Comment: POSITIVE TEST RESULT. A positive Cologuard [...] (Kathy Ramsey al, N Engl J Med 2014;370(14):3379-3038.) Cologuard may produce a false negative or false positive result (no colorectal cancer or precancerous polyp present at colonoscopy follow up). A negative Cologuard test result does not guarantee the absence of CRC or advanced adenoma (pre-cancer). The current Cologuard screening interval is every 3 years. ([place] [employer] Society and U.S. Multi-Society Task Force). Cologuard performance data in a 10,000 patient pivotal study using colonoscopy as the reference method can be accessed at the following location: www.[employer]/results. Additional description of the Cologuard test process, warnings and precautions can be found at www.[employer] Stool specimen (specimen) 08/22/2024 6:00 PM EST 08/24/2024 10:59 AM EST Tonia Mary PROGRAM DIRECTOR AIR TALENT LAB MOLECULAR DIAGNOSTICS ORDERA BLES Final Result [facility] (CLIA #:[id number]) Kimani [place] [address], * HIV-1/2 Antigen and Antibodies, Fourth Generation, with Reflexes (07/28/2024 4:35 PM EDT) HIV AB/AG Nonreactive Nonreactive [facility] Comment:HIV-1 p24 Ag and/or HIV-1/HIV-2 Ab not detected.A test result that is nonreactive does not exclude thepossibility of exposure to or infection with HIV-1 and/orHIV-2. Nonreactive results in this assay for individualswith prior exposure to HIV-1 and/or HIV-2 may be due toantigen and antibody levels that are below the limit ofdetection of this assay.The [employer] HIV Ag/Ab Combo assay result andsupplemental assay results should be interpreted inconjunction with the patient's clinical presentation,history and other laboratory results. If the results areinconsistent with clinical evidence, additional testing issuggested to confirm the result. Blood Venous blood specimen / Unknown 07/28/2024 4:35 PM EDT 07/28/2024 5:24 PM EDT Tonia Mary PROGRAM DIRECTOR AIR TALENT LAB BLOOD ORDERABLES Final Resul t Performing Organization Address [facility] Co de Phone Number [facility] [address] [place] [phone] * (ABNORMAL) Lipid Panel, Standard (07/28/2024 4:35 PM EDT) Triglycerides 100 <150 mg/dL [facility] Comment:Desirable Triglyceri de: less than 150 mg/dLBorderline High Triglyceride 150-199 mg/dLHigh Triglyceride: 200-499 mg/dLVery High Triglyceride: greater than or equal to 5OO mg/dL Cholesterol 188 <200 mg/dL [facility] Comment:Desirable Cholestero l: less than 200 mg/dLBorderline High Cholesterol: 200-239 mg/dLHigh Cholesterol: greater than 239 mg/dL LDL Cholesterol Calculated 112(H) <100 mg/dL [facility] Comment:Desirable LDL: less than 100 mg/dLNear Optimal/Above Optimal LDL: 110- 129 mg/dLBorderline High LDL: 130-159 mg/dLHigh LDL: 160-189 mg/dLVery High LDL: greater than or equal to 190 mg/dL HDL Cholesterol 56 >40 mg/dL [facility] Comment:Desirable HDL: great er than 40 mg/dL Note: This HDL assay may give artificially low results in patients with liver disease. Blood Venous blood specimen / Unknown 07/28/2024 4:35 PM EDT 07/28/2024 5:24 PM EDT us Tonia Mary PROGRAM DIRECTOR AIR TALENT LAB BLOOD ORDERABLES Final Resul t Performing Organization Address [facility] Co de Phone Number [facility] [address] [place] [phone] from Last 3 Months or Most Recently Relevant to Health Maintenance Insurance [facility] C3 Care Teams Button Sewer Relationship Specialty Start Date End Date Tonia Mary NP [address] [place] [phone] PCP - General Family Medicine 07/28/24
== END 2025-07-26 13:55 | disposition home or self-care (01) ==
LOC: HO.HGI 13:15
PROVIDERS: PCP Nurse Practitioner Family; Visit Provider Nurse Practitioner Family
DX: D12.6 Benign neoplasm of colon, unspecified (principal); K21.9 Gastro-esophageal reflux disease without esophagitis
CPT/HCPCS: 99213

== ENCOUNTER → 2025-07-26 13:14 | Outpatient (BNVA) | payer MEDICAID, SELFPAY | PROVIDERS: PCP Nurse Practitioner Family; Visit Provider Nurse Practitioner Family | DX: K21.9 Gastro-esophageal reflux disease without esophagitis (principal); D12.6 Benign neoplasm of colon, unspecified | CPT/HCPCS: 99212 ==

== ENCOUNTER 2025-08-02 11:37 | Outpatient (REF) | payer MEDICAID, SELFPAY ==
--- OUTSIDE RECORDS SUMMARY | 2025-08-02 15:29 | XMS_ITS | Encounter Summary ---
Author Organization [employer] Address [address] [place] [address] 7 [place] [address] Care Team Providers Care Cylinder Batcher Name Role Phone Tonia Mary NP Primary Care Provider Reason for Visit * Reason Onset Date Comments New Patient 10/19/2023 Encounter Details Date Type Department Care Team (Late st Contact Info) Description 10/19/2023 Telephone [facility] [address] [place] [address] [phone] Arun Lemus MD [address] [place], [place] [phone] New Patient Social History Tobacco Use Types [...] 5:17 PM EST PT is on [facility] List as of 10/15/2023 documented in this encounter Plan of Treatment Upcoming Encounters Date Type Department Care Team (Late st Contact Info) Description 10/15/2025 11:30 AM EST Office Visit [facility] [address] [place] [phone] Tonia Mary NP [address] [place] [address] documented as of this encounter Visit Diagnoses Not on filedocumented in this encounter Care Teams Cylinder Batcher Relationship Specialty Start Date End Date Tonia Mary NP [address] [place] [address] PCP - General Family Medicine 07/28/24 documented as of this encounter
--- OUTSIDE RECORDS SUMMARY | 2025-08-02 15:29 | XMS_ITS | Clinical Summary ---
Author Organization [employer] Address [address] [facility] [address] [place] [address] Care Team Providers Care Magnetometer Operator Name Role Phone Tonia Mary BRENDAN Primary Care Provider [phone] Allergies No known active allergies Medications Diclofenac [...] Plan (12/17/2024 8:30 PM EDT): Referral to SUBSTATION WIREMAN, pt to update if has not head [...] Description 07/10/2025 9:30 AM EDT Clinical Support [facility] [address] [place] [phone] Agahta Hill, RN Encounter for immunization; Elevated blood pressure reading [R03.0] 07/10/2025 Travel 07/03/2025 Travel 07/02/2025 1:45 PM EDT Office Visit [facility] [address] [place] [phone] Amber Tsai FNP Well adult on routine health check (Primary Dx); Class 3 severe obesity with body mass index (BMI) of 40.0 to 44.9 in adult, unspecified obesity type, unspecified whether serious comorbidity present; Dietary counseling; Exercise counseling; Anxiety; Insomnia secondary to anxiety 07/02/2025 Travel 06/29/2025 Telephone [facility] [address] [place] [address] Amber Tsai FNP Chart Prep 06/25/2025 Orders Only GENERIC EXTERNAL DATA DEPARTMENT Provider, Generic External Data 06/25/2025 Patient Outreach [facility] [address] [place] [address] Tonia Mary, BRENDAN Pre-visit Planning ([facility] unable to reach, disconnected) 06/25/2025 Travel 06/08/2025 Telephone [facility] [address] [place] [address] Tonia Mary NP Lab Orders (Pt requesting [...] 07/10/2025 9:28 AM EDT Plan of Treatment Upcoming Encounters Date Type Department Care Team (Late st Contact Info) Description 10/15/2025 11:30 AM EST Office Visit [facility] [address] [facility] [address] Tonia Mary NP [address] [facility] [place] [address] Health Maintenance Due Date Last Done Comments [...] QL, URINE Routine 05/11/2025 8:43 AM EDT HPV DNA, LOW/HIGH RISK Routine [...] AM EDT) T Spot TB Negative Negative [facility] Comment:A negative test resu lt does [...] as aquantitative test. TS PANEL A 0 [facility] TS PANEL B 0 [facility] Negative Control Passed [facility] Positive Control Passed [facility] Comment:For additional infor david, please refer tohttp://education.[employer]/faq/DPU527(This link is being provided for informational/educational purposes only.)THIS TEST WAS PERFORMED AT:[facility] [id number] [place] [address]DJMUIYMURIEL SOLOMON MD,PHD 06/28/2025 8:55 AM EDT 06/28/2025 11:44 AM EDT us Tonia Mary NP LAB BLOOD ORDERABLES Final Resul t [facility] [address] [place] [address] [phone] * Hematoxylin and Eosin Stain (06/25/2025 11:26 AM EDT) Only the most recent of2 resultswithin the time period is included. 06/25/2025 11:2 6 AM EDT 06/25/2025 1:28 PM EDT Brittany [facility] - 06/26/2025 4:36 PM EDT ----- ------- Name: Marla Cervantes Age/Sex: 54/F : 1970 Unit#: [id number] Attend Dr: Kristi Fuentes MD Re06/25/25 Status: [facility] Location: [facility] Disch: ----- ------- SPEC : [id number] RECD: 06/25/25-1327 STATUS: DES RODRIGUEZ NUM: [id number] AISHA: 06/25/25-[address] [facility] [address]: Kristi Fuentes MD ENTERED: 06/25/257155 SP TYPE: Surgical OTHR DR: Tonia Mary CREATIVE DEVELOPER ORDERED: HE Stain/12, Gross Micro L4/4 Diagnosis [...] Name: Marla Cervantes Age/Sex: 54/F : 1970 [id number]#: [id number] Attend Dr: Kristi Fuentes MD Re06/25/25 Status: [facility] Location: [facility] Disch: ----- ------- SPEC : [id number] RECD: 06/25/25 STATUS: DES RODRIGUEZ NUM: [id number] AISHA: 06/25/[address] [facility] [address]: Kristi Fuentes MD ENTERED: 06/25/25 SP TYPE: Surgical OTHR DR: Tonia Mary CREATIVE DEVELOPER ORDERED: HE Stain/12, Gross Micro L4/4 Gross [...] developed and their performance characteristics determined by [facility]. They have not been cleared or approved by the U.S. Food and Drug Administration (FDA). However, the FDA has determined that such clearance or approval is not necessary. This laboratory is certified under the Clinical Laboratory Improvement Amendments of 1988 (CLIA) as qualified to perform high complexity clinical laboratory testing. Copies To: Tonia Mary NP [address] [facility] [address] [place] [phone] ----- ------- Signed (signature on file) Juana Travis 06/26/25 1636 ----- ------- END OF REPORT us Generic External Data Provider LAB BLOOD ORDERAB LES Final Result Performing Organization Address [facility] de Phone Number [facility] [address] [place] [phone] * HCG, Qualitative, Urine (05/11/2025 8:43 AM EDT) Urine NEGATIVE NEGATIVE [facility] Comment:This test was develo ped to detect early . Falsenegative results may occur after the 5th - 7th week ofpregnancy when using this test method. If clinicallyindicated, consider a serum hCG. 05/11/2025 8:43 AM EDT 05/11/2025 8:46 AM EDT us Generic External Data Provider LAB URINE ORDERAB LES Final Result Performing Organization Address [facility] Phone Number [facility] [address] [place] [phone] * HPV High Risk with Reflex to Subtypes (10/02/2024 12:39 PM EST) Pap Vial 10/02/2024 12:3 9 PM EST us Tonia Mary NP LAB BLOOD ORDERABLES Final Resul t Performing Organization Address [facility] de Phone Number [facility] [address] [place] [phone] * Pap Smear (10/02/2024 10:30 AM EST) Swab 10/02/2024 10:3 0 AM EST 10/03/2024 10:10 AM EST Narrative [facility] - 10/09/2024 10:30 AM EST ----- ------- Name: Marla Cervantes Age/Sex: 53/F : 1970 Unit#: [id number] Attend Dr: Tonia Mary CREATIVE DEVELOPER Re10/02/24 Status: [facility] REF Location: [facility] Disch: ----- ------- SPEC : [id number] RECD: 10/03/24-1010 STATUS: DES RODRIGUEZ NUM: [id number] AISHA: 10/02/24-[address] [facility] [address]: Tonia Mary NP ENTERED: 10/03/24-1022 SP TYPE: Pap Smr JUAN M HUNT: ORDERED: Pap Smear Interpretation Satisfactory for evaluation. Negative for intraepithelial lesion or malignancy. Scant cellularity. HPV High Risk: Negative HPV Genotyping 16: Negative HPV Genotyping 18: Negative Clinical Information LMP: Mirena, and no bleeding for years Previous PAP test: Unknown date, WNL Other surgery: IUD Other history: Uncertain if menopausal Material Received ThinPrep-Cervical ----- ------- Signed (signature on file) RosamariaDEREK Barraza ([facility]) 10/09/24 1030 ----- ------- END OF REPORT us Tonia Mary NP LAB CYTOLOGY ORDERABLES Final Re sult [facility] [address] [place] [phone] * BI Mammogram Screening Tomosynthesis Bilateral (09/13/2024 11:33 AM EST) Anatomical Region Laterality Modality Breast Bilateral Mammography 09/13/2024 11:3 3 AM EST Narrative 09/19/2024 3:10 PM EST [address] [place] [address] Mammography Report Signed Patient: Marla Cervantes MR#: [id number] : 1970 Acct:[id number] Age/Sex: 53 / F ADM Date: 09/13/24 Loc: HO.MAMMO Attending Dr: Tonia Mary NP Ordering Physician: Tonia Mary NP Results: 1Negati ve Date of Service: 09/13/24 Follow Up: 1 Year From Orig inal Mammogram Procedure(s): MM tomosynthesis screening BI Accession Number(s): [id number] cc: Tonia Mary NP EXAMINATION: MM SCREENING DIGITAL BREAST TOMOSYNTHESIS, BILATERAL [...] by: Deb Fitzgerald DO 09/19/2024 03:07 PM [facility] Dictated By: Deb Fitzgerald DO Signed By: <Electronically signed by Deb Fitzgerald DO in OV> 09/19/24 1507 DD/ 1133 TD/TT: 09/13/24 1150 [address]: Procedure Note Donotuseinterpreter, Image - 09/19/2024 [facility] [address] [place], [place] [address] Mammography Report Signed Patient: Marla CervantesMR#: [id number] : 1970Acct:[id number] Age/Sex: 53 / FADM Date: 09/13/24 Loc: HO.MAMMO Attending Dr: Tonia Mary CREATIVE DEVELOPER Ordering Physician: Tonia Mary NPResults: 1Negati ve Date of Service: 09/13/24Follow Up: 1 Year From Orig inal Mammogram Procedure(s): MM tomosynthesis screening BI Accession Number(s): [id number] cc: Tonia Mary CREATIVE DEVELOPER EXAMINATION: MM SCREENING DIGITAL BREAST TOMOSYNTHESIS, BILATERAL [...] 09/19/24 1507 DD/ 1133 TD/TT: 09/13/24 1150 [address]: Tonia Mary NP IM BI PROCEDURES Final Result * (ABNORMAL) Cologuard?? colon cancer screening (08/22/2024 6:00 PM EST) Cologuard Result Positive( A) Negative 08/29/2024 5:47 PM EST [facility] (CLIA #:[id number]) Comment: POSITIVE TEST RESULT. A positive Cologuard [...] (Kathy Ramsey al, N Engl J Med 2014;370(14):6641-9812.) Cologuard may produce a false negative or [...] can be accessed at the following location: www.[employer]/results. Additional description of the Cologuard test process, warnings and precautions can be found at www.[employer].MailLift. Stool specimen (specimen) 08/22/2024 6:00 PM EST 08/24/2024 10:59 AM EST Tonia Mary NP LAB MOLECULAR DIAGNOSTICS ORDERA BLES Final Result [facility] (CLIA #:[id number]) [place] [address], * HIV-1/2 Antigen and Antibodies, Fourth Generation, with Reflexes (07/28/2024 4:35 PM EDT) HIV AB/AG Nonreactive Nonreactive [facility] Comment:HIV-1 p24 Ag and/or HIV-1/HIV-2 Ab not detected.A test result that is nonreactive does not exclude thepossibility of exposure to or infection with HIV-1 and/orHIV-2. Nonreactive results in this assay for individualswith prior exposure to HIV-1 and/or HIV-2 may be due toantigen and antibody levels that are below the limit ofdetection of this assay.The PinkelStar HIV Ag/Ab Combo assay result andsupplemental assay results should be interpreted inconjunction with the patient's clinical presentation,history and other laboratory results. If the results areinconsistent with clinical evidence, additional testing issuggested to confirm the result. Blood Venous blood specimen / Unknown 07/28/2024 4:35 PM EDT 07/28/2024 5:24 PM EDT us Tonia Mary NP LAB BLOOD ORDERABLES Final Resul t Performing Organization Address [facility] de Phone Number [facility] [address] [place] [phone] * (ABNORMAL) Lipid Panel, Standard (07/28/2024 4:35 PM EDT) Triglycerides 100 <150 mg/dL [facility] Comment:Desirable Triglyceri de: less than 150 mg/dLBorderline High Triglyceride 150-199 mg/dLHigh Triglyceride: 200-499 mg/dLVery High Triglyceride: greater than or equal to 5OO mg/dL Cholesterol 188 <200 mg/dL [facility] Comment:Desirable Cholestero l: less than 200 mg/dLBorderline High Cholesterol: 200-239 mg/dLHigh Cholesterol: greater than 239 mg/dL LDL Cholesterol Calculated 112(H) <100 mg/dL [facility] Comment:Desirable LDL: less than 100 mg/dLNear Optimal/Above Optimal LDL: 110- 129 mg/dLBorderline High LDL: 130-159 mg/dLHigh LDL: 160-189 mg/dLVery High LDL: greater than or equal to 190 mg/dL HDL Cholesterol 56 >40 mg/dL [facility] Comment:Desirable HDL: great er than 40 mg/dL Note: This HDL assay may give artificially low results in patients with liver disease. Blood Venous blood specimen / Unknown 07/28/2024 4:35 PM EDT 07/28/2024 5:24 PM EDT us Tonia Mary NP LAB BLOOD ORDERABLES Final Resul t Performing Organization Address [facility] Co de Phone Number [facility] [address] [place] [address] [phone] from Last 3 Months or Most Recently Relevant to Health Maintenance Insurance [facility] C3 Care Teams Magnetometer Operator Relationship Specialty Start Date End Date Tonia Mary NP [address] [place] [phone] PCP - General Family Medicine 07/28/24
[2025-08-02 17:47] LABS: CT PCR NOT DETECTED (Not Detect.); NG PCR NOT DETECTED (Not Detect.)
== END 2025-08-02 11:38 | disposition home or self-care (01) ==
LOC: HO.LNP 11:37
PROVIDERS: PCP Nurse Practitioner Family; Visit Provider Obstetrics & Gynecology
DX: Z30.09 Encounter for other general counseling and advice on contraception (principal); Z30.430 Encounter for insertion of intrauterine contraceptive device; Z32.02 Encounter for pregnancy test, result negative; Z20.2 Contact with and (suspected) exposure to infections with a predominantly sexual mode of transmission
CPT/HCPCS: 58300; 81025; 87491; 87591; J7300

== ENCOUNTER 2025-08-02 11:37 | Outpatient (AMB) | payer MEDICAID, SELFPAY ==
--- NOTE | 2025-08-02 11:39 | MHC.OFFVIS ---
Vital Signs 08/02/25 11:45 Height 5 ft 4 in Weight 237 lb BMI 40.7 Intake Visit Reasons: Mirena Insertion Safety And Security Manager Required: No Information Interpreted: non-clinical & clinical Airborne Electronics Analyst: Airborne Electronics Analyst Present (Humaira Cazares TERRIShreya) Accompanied by: Self / Same As Patient Allergies No Known Allergies Allergy (Verified 08/02/25 11:54) HPI Comments Details: The patient is presenting after an episode of vaginal bleeding of 3 day duration concerned about possibility of . 05/04 hysteroscopic polypectomy done. The pathology showed the following: A. Endometrial polyp, resection: Fragments of benign endometrial polyp with chronic endometritis and breakdown; no atypia or carcinoma. B. Endometrium, curettage: Benign endometrium with chronic endometritis and breakdown, and benign endocervical glandular and squamous epithelium; no atypia or carcinoma FSH/LH done in 04/04 were in the menopausal range PFSH Medical History Mild acid reflux Tubular adenoma of colon Nicotine dependence Positive colorectal cancer screening using Cologuard test ASCUS of cervix with negative high risk HPV Surgical History H/O colonoscopy History of cholecystectomy Hx of gastric bypass Family History Mother Diabetes HTN (hypertension) Heart disease Father Heart disease Social History Household Members: Spouse Housing: Apartment Alcohol intake: current Alcohol intake frequency: holidays/special occasions only Patient Tobacco Use Status: Current everyday Tobacco user Tobacco use type: Cigarette Cigarettes Per Day: 3 Years Smoked: 15 Review of Systems Const All systems reviewed & are unremarkable except as noted in HPI and below Reports as per HPI and Reports no additional complaints GI Reports no additional complaints Reports no additional complaints Physical Exam Vital Signs: BMI result Body Mass Index 40.7 Office Procedures IUD Insert/Removal Details Details: The patient is presenting for Paraguard IUD insertion. Her last menstrual period was within the last 5 days, Urine test was done in the office and was negative; All the contraindications were excluded. The following possible complications were discussed with the patient: Intrauterine , Ectopic , Sepsis, Pelvic Infection, Irregular Bleeding, Perforation, Expulsion. The possible adverse effects were discussed with the patient including but not limited to: increased uterine bleeding, dysmenorrhea , others Alternative options were discussed with the patient including but not limited: control pills, patch, NuvaRing, Depo-medroxyprogesterone acetate, Nexplanon, copper IUD, sterilization, vasectomy, others The procedure was explained in detail to patient , at the end patient signed the informed consent obtained. Urine test was done in the office and was negative A no touch technique was used throughout the procedure. A speculum was placed into vagina and cervix was cleaned with betadine). A tenaculum was placed. A plastic sound was advanced through the external and internal os until it reached the fundus of the uterus, the depth was 7 cm. The sound was then withdrawn. The ParaGard IUD was loaded in a sterile manner and advanced into position. The string was visualized and cut to 3 cm. Tenaculum site hemostatic. All instruments removed from vagina. Patient tolerated the procedure well. NO complications were noted. Patient was instructed to call for fever over 100.4, significant pain unrelieved by Motrin, IUD expulsion, heavy bleeding, or abnormal discharge. In addition, the following clinical considerations were discussed with the patient to call for removal: Unexplained fever , or suspected , Pelvic pain or pain during sex ,HIV positive seroconversion in herself or her partner , Possible exposure to sexually transmitted infections Unusual vaginal discharge or genital sores , severe vaginal bleeding or bleeding that lasts a long time, or if she misses a menstrual period, Inability to feel IUD s threads Counseled the patient that the IUD does not protect against STI's, recommended use of condoms for the first 7 days post insertion and explained to the patient that condoms are recommended for patients at risk for sexually transmitted infections. Follow up appointment made for 6 weeks following insertion. This note was generated with a voice recognition program. Some errors may have been overlooked during the review of this note. Sometimes these errors may affect the content or meaning of a given sentence. 34599-EWF Insertion Procedure code (CPT) selection complete Office Meds Mirena 21 mcg/24 hr (up to 8 years) 52 mg intrauterine device Performing Provider: Rupert Beatty MD Performing Location: [facility] Documented (not given) by: Rupert Beatty MD on 08/02/25 12:07 Dose Route Admin Location Dispensed Lot Number Expiration Date NDC Admissions Consultant 1 device intrauterine ea Total Dispensed Waste n/a n/a Results AMB Test Urine AMB Test Urine Negative Last Edit by Humaira Cazares CMA on 08/02/25 11:54 Results Reviewed Results Reviewed: Laboratory Last Values [facility]st Clinic Negative 08/02/25 11:53 Assessment & Plan Assessment & Plan (1) Family planning: Code(s): Z30.09 - Encounter for other general counseling and advice on contraception Category: Social Hx Plan: Discussed with the patient the pathology results showing inactive endometrium with elevated FSH/LH therefore the risk of is close to 0, the patient is concerned about the ability to get understand it is very low but not 0 would like to reduce down further by using a method of control. Discussed with the patient the different options of control . All the pros, cons, risks and benefits of each were discussed with the patient. The patient decided to go ahead with ParaGard IUD, so a more detailed discussion was carried on about the mechanism of action, risks (infection, uterine perforation, failure with ectopic , septic AB, dysmenorrhea with Paraguard, others) benefits (efficient contraceptive method, others) GC/CG were taken and the patient signed a consent for ParaGard IUD. ParaGard IUD insertion done, see procedure note. Instructions given the patient to schedule a 6 week IUD check appointment and to call after 12 months of amenorrhea, the clinical definition of menopause for ParaGard IUD removal. All questions answered, the patient verbalized understanding ParaGard IUD insertion ParaGard IUD insertion Orders: Orders AMB HCG Urine Test Today Z32.02 - Encounter for test, result negative AMB IUD Insertion/Removal - Practice Supplied Today Z30.09 - Encounter for other general counseling and advice on contraception AMB IUD Insertion/Removal - Practice Supplied Today Z30.09 - Encounter for other general counseling and advice on contraception CT NG by PCR Vag/Cerv Today Z30.430 - Encounter for insertion of intrauterine contraceptive device Medications: New Mirena (levonorgestrel) 1 device intrauterine ONCE 1 ea 0RF Family planning NS Z30.09 - Encounter for other general counseling and advice on contraception ParaGard T380A (Single Hand) (copper) 1 device intrauterine ONCE 1 ea 0RF Family planning NS Z30.09 - Encounter for other general counseling and advice on contraception Coding Level of Care Code Procedure Only Diagnoses Family planning Z30.09 CPT Codes Details - CPT: 59283-WWX Insertion ([id number])
[2025-08-02 11:45] VITALS: BMI 40.7
== END 2025-08-02 12:13 | disposition home or self-care (01) ==
LOC: HO.HWS 11:37
PROVIDERS: PCP Nurse Practitioner Family; Visit Provider Obstetrics & Gynecology
DX: Z30.430 Encounter for insertion of intrauterine contraceptive device (principal); Z30.09 Encounter for other general counseling and advice on contraception; Z32.02 Encounter for pregnancy test, result negative
CPT/HCPCS: 58300

== ENCOUNTER 2025-09-17 09:57 | Outpatient (AMB) | payer MEDICAID, SELFPAY ==
--- NOTE | 2025-09-17 10:00 | A.OFFVIS_ITS ---
Vital Signs 09/17/25 10:06 Height 5 ft 4 in BP 122/80 Intake Visit Reasons: IUD Check Filter Bed Placer: Filter Bed Placer Present (Giselle) Accompanied by: Self / Same As Patient Allergies No Known Allergies Allergy (Verified 09/17/25 10:06) HPI Comments Details: The patient is presenting for IUD check after 1 st period following IUD insertion. The patient has no complaints PFSH Medical History Mild acid reflux Tubular adenoma of colon Nicotine dependence Positive colorectal cancer screening using Cologuard test ASCUS of cervix with negative high risk HPV Surgical History H/O colonoscopy History of cholecystectomy Hx of gastric bypass Family History Mother Diabetes HTN (hypertension) Heart disease Father Heart disease Social History Household Members: Spouse Housing: Apartment Alcohol intake: current Alcohol intake frequency: holidays/special occasions only Patient Tobacco Use Status: Current everyday Tobacco user Tobacco use type: Cigarette Cigarettes Per Day: 3 Years Smoked: 15 Review of Systems Const All systems reviewed & are unremarkable except as noted in HPI and below Physical Exam Vital Signs: Last Vital Signs BP 122/80 09/17/25 10:06 General: Yes no CVA tenderness External Female Exam: normal external appearance and normal appearance of the urethra Speculum Exam - Vagina: normal appearance of the vagina, normal palpation, no le sions and no masses Speculum Exam - Cervix: normal appearance of the cervix, normal palpation, no lesions, no masses, nontender and Other cervical findings present (IUD string in place) Bimanual exam- vagina & uterus: normal bimanual exam, normal palpation, uterine size normal, normal palpation, uterine shape normal, No Cervical tenderness present and non-tender Bimanual Exam- Adnexa, other: normal adnexae Back/Spine/Pelvis Back: no CVA tenderness Assessment & Plan Assessment & Plan (1) IUD check up: Code(s): Z30.431 - Encounter for routine checking of intrauterine contraceptive device Category: Medical Plan: UPT done in the office was negative. Discussed with the patient the finding on physical exam, IUD string in place, the patient was reassured. Instructions given to patient to call in case of temperature above 100.4, severe cramping/pelvic pain, abnormal discharge or abnormal uterine bleeding or if she misses her menstrual cycle. Otherwise follow-up at her annual exam appointment. All questions answered, the patient verbalized understanding. Coding Level of Care Code Est Pt Level 3 (99337) Diagnoses IUD check up Z30.431
[2025-09-17 10:06] VITALS: BP 122/80
== END 2025-09-17 10:16 | disposition home or self-care (01) ==
LOC: HO.HWS 09:58
PROVIDERS: PCP Nurse Practitioner Family; Visit Provider Obstetrics & Gynecology
DX: Z30.431 Encounter for routine checking of intrauterine contraceptive device (principal)
CPT/HCPCS: 99213

== ENCOUNTER → 2025-09-17 09:57 | Outpatient (BNVA) | payer MEDICAID, SELFPAY | PROVIDERS: PCP Nurse Practitioner Family; Visit Provider Obstetrics & Gynecology | DX: Z30.431 Encounter for routine checking of intrauterine contraceptive device (principal); Z32.02 Encounter for pregnancy test, result negative | CPT/HCPCS: 99212 ==

== ENCOUNTER 2025-09-18 07:59 | Outpatient (REF) | payer MEDICAID, SELFPAY ==
--- NOTE | ~2025-09-18 | FL_ITS ---
EXAMINATION: FL UPPER GI SERIES FL SMALL BOWEL FOLLOW-THROUGH CLINICAL INFORMATION: Gastroesophageal reflux COMPARISON: Upper GI 04/09/2018 TECHNIQUE: Double contrast upper GI series with fluoroscopy and spot imaging was performed. The patient ingested low density barium without difficulty and was evaluated in the upright and recumbent positions. This was followed by a small bowel study where overhead images were obtained. FLUOROSCOPY TIME: 2 minutes 23 seconds of fluoroscopic time was utilized for the entirety of this examination. DOSE AREA PRODUCT: 424 uGy-m2 (microgray-meters squared) FINDINGS: Normal swallowing reflex. Normal esophageal distention and motility. No mass or mucosal lesion is seen. No evidence of fixed stricturing. There is postsurgical changes from prior gastric surgery. There is prompt passage of the barium through the stomach to the small bowel. No mass or mucosal lesion is seen in the stomach. No gastroesophageal reflux is seen during the procedure. Small hiatus hernia with Schatzki's ring. Small bowel follow-through: The patient was able to ingest an adequate amount of contrast for complete examination. Total transit time for the barium to reach the terminal ileum took approximately 4 hours. No mucosal abnormality, mass, or constricting annular lesion were seen. The terminal ileum is not visualized, with overlapping bowel loops and dense barium precluding evaluation. FL/FL upper GI w air w SBFT IMPRESSION: * Small hiatal hernia with Schatzki's ring.. * No gastroesophageal reflux is seen during the procedure. * No small bowel abnormality identified by barium study. The terminal ileum was not visualized/evaluated. Electronically signed by: Maldonado Greenfield MD 09/18/2025 03:15 PM [facility]
--- OUTSIDE RECORDS SUMMARY | 2025-09-18 08:25 | XMS_ITS | Clinical Summary ---
Author Organization [employer] Address [address] [facility] [address] [place] [address] Care Team Providers Care Pitch Flaker Name Role Phone Tonia Mary BRENDAN Primary Care Provider [phone] Allergies No known active allergies Medications Diclofenac [...] Plan (12/17/2024 8:30 PM EDT): Referral to [facility], pt to update if has not head [...] Encounters Date Type Department Care Team Description 08/29/[address] [address] Tonia Mary NP Referral (Called pt to book appointment with hog cutter no answers , left voicemail to call back) 08/02/2025 Orders Only GENERIC EXTERNAL DATA DEPARTMENT Provider, Generic External Data 07/10/2025 9:30 AM EDT Clinical Support [address] [address] Agatha Hill, RN Encounter for immunization; Elevated blood pressure reading [R03.0] 07/10/2025 Travel 07/03/2025 Travel 07/02/2025 1:45 PM EDT Office Visit [address] [address] Amber Tsai FNP Well adult on routine health check (Primary Dx); Class 3 severe obesity with body mass index (BMI) of 40.0 to 44.9 in adult, unspecified obesity type, unspecified whether serious comorbidity present; Dietary counseling; Exercise counseling; Anxiety; Insomnia secondary to anxiety 07/02/2025 Travel 06/29/2025 Telephone [facility] [address] [place] [address] Amber Tsai FNP Chart Prep 06/25/2025 Orders Only GENERIC EXTERNAL DATA DEPARTMENT Provider, Generic External Data 06/25/2025 Patient Outreach [facility] [address] [place] [address] Tonia Mary NP Pre-visit Planning ([facility] unable to reach, disconnected) 06/25/2025 Travel from Last 3 Months Immunizations Immunization Administration [...] Description 10/15/2025 11:30 AM EST Office Visit [facility] [address], [place] [phone] Tonia Mary NP [address] [place] [address] 11/16/2025 10:00 AM EST Nutrition [facility] DI[facility]ET[facility]/NUTRITION [address], [place] [phone] Elsa Irizarry [address], [place] [phone] Health Maintenance Due Date Last Done Comments CT Colonography 1972 Colonoscopy 1970 FIT 1970 Sigmoidoscopy 1970 RSV Patients and Patients Aged 60 years or older (1 - Risk 50-74 years 1-dose series) 2022 COVID-19 Vaccine (3 - 2024-2 6 season) [...] T d or Tdap) 07/28/2034 07/28/2024, 08/05/2012 Hepatitis A Vaccines Completed 08/13/2004, 02/05/2004 Hepatitis [...] Procedure Name Priority Date/Time Associated Diagnosis Comments CHLAMYDIA/N. GONORRHOEAE RNA, TMA, UROGENITAL Routine 08/02/2025 11:37 AM EDT T-SPOT(R).TB Routine 06/28/2025 8:55 AM EDT Screening for tuberculosis HEMATOXYLIN AND EOSIN STAIN Routine 06/25/2025 11:26 AM EDT HPV DNA, LOW/HIGH RISK Routine [...] Recently Relevant to Health Maintenance Results * Chlamydia/N. Gonorrhoeae RNA, TMA, Urogenitial (08/02/2025 11:37 AM EDT) CT PCR NOT DETECTED Not Detect. [facility] Comment:A not detected test result [...] psychologicalconsequences. NG PCR NOT DETECTED Not Detect. [facility] Comment:A not detected test result [...] lead to adverse medical, social or psychologicalconsequences. 08/02/2025 11:3 7 AM EDT 08/02/2025 3:29 PM EDT us Generic External Data Provider LAB MICROBIOLOGY - GENERAL ORDERABLES Final Result [facility] [address] [place] [address] [phone] * T-SPOT??.TB (06/28/2025 8:55 AM EDT) T Spot TB Negative Negative [facility] Comment:A negative test resu lt [...] as aquantitative test. TS PANEL A 0 [facility] TS PANEL B 0 [facility] Negative Control Passed [facility] Positive Control Passed [facility] Comment:For additional infor mation, please refer [email or web address].[email or web address]/SDW529(This link is being provided for informational/educational purposes only.)THIS TEST WAS PERFORMED AT:[facility] [id number] [place] [address]ODIGIGTURIEL SOLOMON MD,PHD 06/28/2025 8:55 AM EDT 06/28/2025 11:44 AM EDT us Tonia Mary NP LAB BLOOD ORDERABLES Final Resul t [facility] [address] [place] [phone] * Hematoxylin and Eosin Stain (06/25/2025 11:26 AM EDT) 06/25/2025 11:2 6 AM EDT 06/25/2025 1:28 PM EDT Narrative [facility] - 06/26/2025 4:36 PM EDT ----- ------- Name: Marla Cervantes Age/Sex: 54/F : 1970 Unit#: [id number] Attend Dr: Kristi Fuentes MD Re06/25/25 Status: [facility] Location: [facility] Disch: ----- ------- SPEC : [id number] RECD: 06/25/25 STATUS: DES RODRIGUEZ NUM: [id number] AISHA: 06/25/25-[address] [facility] [address]: Kristi Fuentes MD ENTERED: 06/25/259425 SP TYPE: Surgical OTHR DR: Tonia Mary NP ORDERED: HE Stain/12, Gross Micro L4/4 Diagnosis [...] Marla Cervantes Age/Sex: 54/F : 1970 Unit#: [id number] Attend Dr: Kristi Fuentes MD Re06/25/25 Status: [facility] Location: [facility] Disch: ----- ------- SPEC : [id number] RECD: 06/25/25 STATUS: DES RODRIGUEZ NUM: [id number] AISHA: 06/25/25-[address] [facility] [address]: Kristi Fuentes MD ENTERED: 06/25/25 SP TYPE: Surgical OTHR DR: Tonia Mary CHIEF RELAY TESTER ORDERED: HE Stain/12, Gross Micro L4/4 Gross [...] developed and their performance characteristics determined by [facility]. They have not been cleared or approved by the U.S. Food and Drug Administration (FDA). However, the FDA has determined that such clearance or approval is not necessary. This laboratory is certified under the Clinical Laboratory Improvement Amendments of 1988 (CLIA) as qualified to perform high complexity clinical laboratory testing. Copies To: Tonia Mary NP [address] [address] Kristi Fuentes MD [facility] [address] [place] [phone] ----- ------- Signed (signature on file) Juana Aurora 06/26/25 1636 ----- ------- END OF REPORT us Generic External Data Provider LAB BLOOD ORDERAB LES Final Result Performing Organization Address [facility] Co de Phone Number [facility] [address] [place] [phone] * HPV High Risk with Reflex to Subtypes (10/02/2024 12:39 PM EST) Pap Vial 10/02/2024 12:3 9 PM EST Tonia Mary NP LAB BLOOD ORDERABLES Final Resul t Performing Organization Address [facility] de Phone Number [facility] [address] [place] [phone] * Pap Smear (10/02/2024 10:30 AM EST) Swab 10/02/2024 10:3 0 AM EST 10/03/2024 10:10 AM EST Narrative [facility] - 10/09/2024 10:30 AM EST ----- ------- Name: Marla Cervantes Age/Sex: 53/F : 1970 Unit#: [id number] Attend Dr: Tonia Mary CHIEF RELAY TESTER Re10/02/24 Status: DEP REF Location: [facility] Disch: ----- ------- SPEC : [id number] RECD: 10/03/24 STATUS: DES RODRIGUEZ NUM: [id number] AISHA: 10/02/[address] [facility] [address]: Tonia Mary CHIEF RELAY TESTER ENTERED: 10/03/24 SP TYPE: Pap Smr OTHR DR: ORDERED: Pap Smear Interpretation Satisfactory for [...] NP LAB CYTOLOGY ORDERABLES Final Re sult [facility] [address] [place] [phone] * BI Mammogram Screening Tomosynthesis Bilateral (09/13/2024 11:33 AM EST) Anatomical Region Laterality Modality Breast Bilateral Mammography 09/13/2024 11:3 3 AM EST Narrative 09/19/2024 3:10 PM EST [facility] [address] [place] [address] Mammography Report Signed Patient: Marla Cervantes MR#: [id number] : 1970 Acct:[id number] Age/Sex: 53 / F ADM Date: 09/13/24 Loc: HO.MAMMO Attending Dr: Tonia Mary NP Ordering Physician: Tonia Mary NP Results: 1Negati ve Date of Service: 09/13/24 Follow Up: 1 Year From Orig ina Mammogram Procedure(s): MM tomosynthesis screening BI Accession Number(s): [id number] cc: Tonia Mary NP EXAMINATION: MM SCREENING [...] 09/19/24 1507 DD/ 1133 TD/TT: 09/13/24 1150 Conveyor Belt Installer: Procedure Note Donotziinterpreter, Image - 09/19/2024 [facility] [address] [place] [address] Mammography Report Signed Patient: Marla CervantesMR#: [id number] : 1970Acct:[id number] Age/Sex: 53 / FADM Date: 09/13/24 Loc: HO.MAMMO Attending Dr: Tonia Mary CHIEF RELAY TESTER Ordering Physician: Tonia Mary NPResults: 1Negati ve Date of Service: 09/13/24Follow Up: 1 Year From Orig inal Mammogram Procedure(s): MM tomosynthesis screening BI Accession Number(s): [id number] cc: Tonia Mary CHIEF RELAY TESTER EXAMINATION: MM SCREENING DIGITAL BREAST TOMOSYNTHESIS, BILATERAL [...] by: Deb Fitzgerald DO 09/19/2024 03:07 PM [facility] Dictated By: Deb Fitzgerald DO Signed By: <Electronically signed by Deb Fitzgerald DO in OV> 09/19/24 1507 DD/ 1133 TD/TT: 09/13/24 1150 Conveyor Belt Installer: us Tonia Mary BRENDAN IMG BI PROCEDURES Final Result * (ABNORMAL) Cologuard?? colon cancer screening (08/22/2024 6:00 PM EST) Cologuard Result Positive( A) Negative 08/29/2024 5:47 PM EST [facility] (CLIA #:[id number]) Comment: POSITIVE TEST RESULT. A positive Cologuard [...] (Kathy Ramsey al, N Engl J Med 2014;370(14):9010-3675.) Cologuard may produce a false negative or false positive result (no colorectal cancer or precancerous polyp present at colonoscopy follow up). A negative Cologuard test result does not guarantee the absence of CRC or advanced adenoma (pre-cancer). The current Cologuard screening interval is every 3 years. ([place] [employer] and U.S. Multi-Society Task Force). Cologuard performance data in a 10,000 patient pivotal study using colonoscopy as the reference method can be accessed at the following location: [email or web address]/results. Additional description of the Cologuard test process, warnings and precautions can be found at www.colBrainlyrd.com. Stool specimen (specimen) 08/22/2024 6:00 PM EST 08/24/2024 10:59 AM EST Tonia Mary NP LAB MOLECULAR DIAGNOSTICS ORDERA BLES Final Result [facility] (CLIA #:[id number]) Kimani [place] [address], * HIV-1/2 Antigen and Antibodies, Fourth Generation, with Reflexes (07/28/2024 4:35 PM EDT) HIV AB/AG Nonreactive Nonreactive [facility] Comment:HIV-1 p24 Ag and/or HIV-1/HIV-2 Ab not detected.A test result that is nonreactive does not exclude thepossibility of exposure to or infection with HIV-1 and/orHIV-2. Nonreactive results in this assay for individualswith prior exposure to HIV-1 and/or HIV-2 may be due toantigen and antibody levels that are below the limit ofdetection of this assay.The Zoe Majeste HIV Ag/Ab Combo assay result andsupplemental assay results should be interpreted inconjunction with the patient's clinical presentation,history and other laboratory results. If the results areinconsistent with clinical evidence, additional testing issuggested to confirm the result. Blood Venous blood specimen / Unknown 07/28/2024 4:35 PM EDT 07/28/2024 5:24 PM EDT Tonia Mary NP LAB BLOOD ORDERABLES Final Resul t Performing Organization Address City/[facility]/ZIP Co de Phone Number [facility] [address] [place] [phone] * (ABNORMAL) Lipid Panel, Standard (07/28/2024 4:35 PM EDT) Triglycerides 100 <150 mg/dL [facility] Comment:Desirable Triglyceri de: less than 150 mg/dLBorderline High Triglyceride 150-199 mg/dLHigh Triglyceride: 200-499 mg/dLVery High Triglyceride: greater than or equal to 5OO mg/dL Cholesterol 188 <200 mg/dL [facility] Comment:Desirable Cholestero l: less than 200 mg/dLBorderline High Cholesterol: 200-239 mg/dLHigh Cholesterol: greater than 239 mg/dL LDL Cholesterol Calculated 112(H) <100 mg/dL [facility] Comment:Desirable LDL: less than 100 mg/dLNear Optimal/Above Optimal LDL: 110- 129 mg/dLBorderline High LDL: 130-159 mg/dLHigh LDL: 160-189 mg/dLVery High LDL: greater than or equal to 190 mg/dL HDL Cholesterol 56 >40 mg/dL [facility] Comment:Desirable HDL: great er than 40 mg/dL Note: This HDL assay may give artificially low results in patients with liver disease. Blood Venous blood specimen / Unknown 07/28/2024 4:35 PM EDT 07/28/2024 5:24 PM EDT us Tonia Mary NP LAB BLOOD ORDERABLES Final Resul t [facility] [address], [place] [phone] from Last 3 Months or Most Recently Relevant to Health Maintenance Insurance [facility] C3 Care Teams Pitch Flaker Relationship Specialty Start Date End Date Tonia Mary NP [address] [place] [phone] PCP - General Family Medicine 07/28/24
--- OUTSIDE RECORDS SUMMARY | 2025-09-18 08:25 | XMS_ITS | Patient Health Record ---
Author Organization [facility] Address [address] [place] [address] Care Team Providers Care Cinder Block Mason Name Role Phone Segundo Ribera Unavailable [phone] Reason For Referral No Information Plan Of Treatment No Information
--- OUTSIDE RECORDS SUMMARY | 2025-09-18 08:25 | XMS_ITS | Encounter Summary ---
Author Organization [employer] Address [address] [place] [address] 7 [place] [address] Care Team Providers Care Poultry Cutter Name Role Phone Tonia Mary NP Primary Care Provider [phone] Reason for Visit * Reason Onset Date Comments New Patient 10/19/2023 Encounter Details Date Type Department Care Team (Late st Contact Info) Description 10/19/2023 Telephone [facility] [address] [place] [address] [phone] Arun Lemus MD [address] [place], [place] [phone] New Patient Social History Tobacco Use Types [...] 10/19/2023 5:17 PM EST PT is on [facility] List as of 10/15/2023 documented in this encounter Plan of Treatment Upcoming Encounters Date Type Department Care Team (Late st Contact Info) Description 10/15/2025 11:30 AM EST Office Visit [facility] [address] [place] [phone] Tonia Mary NP [address] [place] [address] 11/16/2025 10:00 AM EST Nutrition [facility] DIABETES/NUTRITION [address] [place], [place] [phone] Elsa Irizarry, ATIF [address] [place], [place] [phone] documented as of this encounter Visit Diagnoses Not on filedocumented in this encounter Care Teams Poultry Cutter Relationship Specialty Start Date End Date Tonia Mary NP [address] [place] [address] PCP - General Family Medicine 07/28/24 documented as of this encounter
== END 2025-09-18 08:00 | disposition home or self-care (01) ==
LOC: HO.XRAY 07:59
PROVIDERS: Visit Provider Nurse Practitioner Family
DX: K21.9 Gastro-esophageal reflux disease without esophagitis (principal)
CPT/HCPCS: 74246; 74248

== ENCOUNTER → 2025-09-18 08:01 | Outpatient (BNV) | payer MEDICAID, SELFPAY | PROVIDERS: Visit Provider Radiology Diagnostic Ultrasound | DX: K44.0 Diaphragmatic hernia with obstruction, without gangrene (principal); K22.2 Esophageal obstruction | CPT/HCPCS: 74246; 74248 ==